=== PATIENT | male | born 1955 | race African-American/Black ===

== ENCOUNTER 2017-03-13 17:07 | Inpatient (IN) ==
[2017-03-13 18:43] LABS: MANUAL DIFF NEEDED? NO
[2017-03-13 18:49] LABS: BASO% 0.4 % (0.0-0.8); EOS# 0.22 X1000 (0.0-0.7); HEMATOCRIT 39.7 % (42.0-52.0); HEMOGLOBIN 12.9 g/dL (14.0-18.0); LYMPH# 1.94 X1000 (1.2-3.4); MCH 31.1 PG (27-31); MCHC 32.5 g/dL (33-37); MCV 95.7 FL (81-99); MONO# 0.53 X1000 (0.11-0.59); MONO% 9.6 % (1.7-9.3); MPV 12.8 FL (7.4-10.4); PLT 135 X1000 (130-400); RBC 4.15 XMIL (4.7-6.1)
[2017-03-13] MEDS ORDERED: VANCOMYCIN 1 GM/NS 1 GM/250 ML IVPB IV ONE ×2 (19:02→22:00)
[2017-03-13 19:09] LABS: ALBUMIN 3.5 g/dL (3.5-5.0); CALCIUM 8.5 mg/dL (8.8-10.2); POTASSIUM 3.6 mmol/L (3.5-5.1); TOTAL BILIRUBIN 0.4 mg/dL (0.20-1.00); TOTAL PROTEIN 6.7 g/dL (6.3-8.3)
--- NOTE | 2017-03-13 20:05 | PROVIDER DOCUMENTATION ---
This chart was entered by Tashi Hawkins Scribe, acting as scribe for Sarwat Nuñez PA. HPI-General Adult - General Chief Complaint: Sores/Lesions Stated Complaint: DIABETIC SORES/LESIONS Time Seen by Provider: 03/13/17 17:26 Source: patient Allergies/Adverse Reactions: Patient Allergies Allergy/AdvReac Type Severity Reaction Status Date / Time No Known Allergies Allergy Verified 02/03/17 20:38 Home Medications: Home Medication List Medication Instructions Recorded Confirmed Last Taken Type Insulin Glargine [Lantus] 24 unit SUBQ QHS #0 insuln.pen 08/04/14 02/03/1708/29 Rx Alprazolam [Xanax] 1 mg PO QHS 12/06/16 02/03/17 Unknown History Atorvastatin Calcium [Lipitor] 20 mg PO QHS 12/06/16 02/03/17 Unknown History Cyclobenzaprine [Flexeril] 10 mg PO BID 12/06/16 02/03/17 Unknown History Oxycodone HCl [Oxycontin] 40 mg PO DAILY 12/06/16 02/03/17 Unknown History Oxycodone HCl [Oxycontin] 60 mg PO BID 12/06/16 02/03/17 Unknown History Naloxegol Oxalate [Movantik] 25 mg PO DAILY #30 tablet 12/07/16 02/03/17 Unknown Rx LISINOpril [Prinivil] 10 mg PO DAILY #30 tablet 12/08/16 02/03/17 Unknown Rx Acyclovir 800 mg PO 5XDAY #50 tablet 12/10/16 02/03/17 Unknown Rx Amlodipine [Norvasc] 2.5 mg PO DAILY #30 tablet 02/06/17 Unknown Rx Carvedilol [Coreg] 6.25 mg PO Q12HR #60 tablet 02/06/17 Unknown Rx - History of Present Illness -Gen Adult Nature of Presenting Problems: patient is a 61 y/o M that presents to the ER with sores/lesion to left great toe. Patient has been followed by , who sent patient here. Denies fever /chills, swelling to feet, or chest pain. Location of Pain/Injury: reports: lower extremity (left great toe) Pain Radiation: reports: no radiation Quality of Pain: reports: dull Severity: reports: mild, moderate Onset/Duration: reports: unsure Timing: reports: still present, constant Context/Activities at Onset: reports: none Modifying Factors: improves with: nothing Associated Symptoms: denies: chest pain, fever/chills, shortness of breath Similar Symptoms Previously?: Yes Recently seen or treated by another doctor?: Yes Review of Systems - Adult - REVIEW OF SYSTEMS - ADULT Constitutional: reports: no symptoms reported. denies: chills, fever Eyes: reports: no symptoms reported. denies: discharge, dry eyes Ears, Nose, Mouth & Throat: reports: no symptoms reported. denies: ear discharge, ear pain Cardiovascular: reports: no symptoms reported. denies: chest pain, edema Respiratory: reports: no symptoms reported. denies: chronic cough, cough Gastrointestinal: reports: no symptoms reported. denies: abdominal pain, hematemesis Genitourinary: reports: no symptoms reported. denies: dysuria, discharge Musculoskeletal: reports: see HPI. denies: joint pain, joint swelling Integumentary: reports: see HPI. denies: hives, hair loss Neurological: reports: no symptoms reported. denies: ataxia, dizziness/vertigo Psychiatric: reports: no symptoms reported. denies: anxiety, anti-depressant use Endocrine: reports: no symptoms reported Hematologic/Lymphatic: reports: no symptoms reported Allergic/Immunologic: reports: no symptoms reported All Other Systems: Reviewed and Negative Past History - Adult - PAST MEDICAL HISTORY-ADULT Review of Records: reports: Old Records Reviewed, Nursing Assessment Review, Medications Reviewed, Social history reviewed & non-contributory. Major Childhood Illnesses: reports: denies history Cardiovascular: reports: CHF, HTN Respiratory: reports: denies history Gastrointestinal: reports: denies history Obstetrical/Gynecological: reports: denies history Genitourinary: reports: denies history Musculoskeletal: reports: arthritis Neurological: reports: Seizures/Epilepsy, other (NEUROPATHY) Psychiatric: reports: depression Endocrine/Immune: reports: Diabetes, other (neuropathy) Other Conditions: reports: denies history - PRIOR SURGERIES/PROCEDURES Surgical/Procedure History: reports: orthopedic (extremity) - IMMUNIZATION STATUS Childhood Immunizations: See Nurse Assessment Flu Vaccine: See Nurse Assessment - FAMILY HISTORY Family History: reviewed, not pertinent Physical Exam-General - PHYSICAL EXAM-ADULT Initial Vital Signs Reviewed: Yes - CONSTITUTIONAL General Appearance: alert, no apparent distress - EYES Eyes: PERRL/EOMI, pink conjunctivae - HEAD, EARS, NOSE, MOUTH & THROAT HENMT: normocephalic/atraumatic, moist mucous membranes, normal ENT inspection - NECK Neck: full range of motion, normal inspection - RESPIRATORY Respiratory: lungs clear, normal breath sounds, no respiratory distress, no accessory muscle use - CARDIOVASCULAR Cardiovascular: regular rate, rhythm, no edema, no murmur - GASTROINTESTINAL (ABDOMEN) Abdominal Exam: normal bowel sounds, non tender, soft - MUSCULOSKELETAL Extremity: no pedal edema, pelvis stable - SKIN Integumentary: warm/dry, other (left great toe with discoloration( black almost , with diabetic ulcer to it) - NEUROLOGIC Neurologic: grossly normal, no motor/sensory deficits - PSYCHIATRIC Psych/Mental Status: normal mood/affect, normal thought content, normal thought process, oriented x 3 Progress - PLAN OF CARE/RESULTS Progress/Plan/Lab Results: Vital Signs - 8 hr 03/13/17 17:12 Temperature 97.2 F L Pulse Rate 101 H Respiratory Rate 18 Blood Pressure 137/88 O2 Sat by Pulse Oximetry 100 Laboratory Results - last 24 hr 03/13/17 17:20 POC Glucose 130 H Result Diagrams: 03/13/17 18:35 03/13/17 18:35 - CONSULTS/PCP/HOSPITALIST Notification #1 *Consult/PCP/Hospitalist*: Dr. Horowitz Time Discussed: 20:04 Consult Disposition: Admit Departure - Departure Time of Disposition Decision: 20:04 DIAGNOSIS: Diabetic foot ulcer Qualifiers: Diabetic foot ulcer location: toe Diabetes mellitus type: type 1 Laterality: left Non-pressure ulcer stage: with fat layer exposed Qualified Code(s): E10.621 - Type 1 diabetes mellitus with foot ulcer; L97.522 - Non-pressure chronic ulcer of other part of left foot with fat layer exposed Disposition: ADMITTED INPATIENT 09 Certified Medical Emergency: Emergent Condition: Stable Referrals and Follow-Ups: Ronald Posadas MD [Primary Care Provider] - - Critical Care Note This patient required my direct & personal management of CC.: No Attestation - Physician/ SYLVIA Attestation Patient care was provided by Advanced Practice Provider:: Yes Advanced Practice Provider:: Sarwat Nuñez Advanced Practice Provider documentation review:: The Mid-level provider documentation, treatment plan and medical decision making was reviewed by the physician who agrees with all treatment and medical decision making by the MLP. This chart was documented by the indicated scribe, (Tashi Hawkins, Harriet) and accurately reflects the services I performed and decisions made by Joaquin hercules Steven Wesley, PA, as attested by the provider's signature.
[2017-03-13] MEDS ORDERED: HUMULIN R IV PRN (20:07)
[2017-03-13] MEDS ORDERED: SODIUM CHLORIDE 0.9% INJ SCH (21:32)
[2017-03-13] MEDS ORDERED: ZOFRAN IV PRN (21:32)
[2017-03-13] MEDS ORDERED: VANCOMYCIN IV PER PHARMACY MISC SCH (21:32)
[2017-03-13] MEDS ORDERED: TYLENOL PO PRN (21:32)
[2017-03-13] MEDS: HUMALOG SUBQ SCH (22:18)
[2017-03-13] MEDS: ROCEPHIN 1 GM/NS 1 GM/50 ML IVPB IV SCH (22:27)
[2017-03-13] MEDS: PROTONIX IV SCH (22:27)
[2017-03-14] MEDS: NORCO-7.5 PO PRN ×2 (05:50→15:20)
[2017-03-14] MEDS: HUMALOG SUBQ SCH (06:24)
[2017-03-14 07:00] LABS: INR 1.11 (0.86-1.15); PROTIME 14.6 Seconds (12.1-15.5)
[2017-03-14 07:03] LABS: HEMATOCRIT 37.4 % (42.0-52.0); HEMOGLOBIN 12.2 g/dL (14.0-18.0); MCHC 32.6 g/dL (33-37); MCV 95.2 FL (81-99); RBC 3.93 XMIL (4.7-6.1)
[2017-03-14 07:16] LABS: ALBUMIN 3.4 g/dL (3.5-5.0); CALCIUM 8.6 mg/dL (8.8-10.2); MAGNESIUM 1.8 mg/dL (1.5-2.7); POTASSIUM 3.9 mmol/L (3.5-5.1); TOTAL BILIRUBIN 0.4 mg/dL (0.20-1.00); TOTAL PROTEIN 6.2 g/dL (6.3-8.3)
--- NOTE | 2017-03-14 08:26 | PROGRESS NOTE ---
DATE: 03/14/2017 SUBJECTIVE: Patient notes that he is feeling a little bit better. He is still having some pain in his toe but it has not really changed. Denies any chest pain, palpitations. Denies any fevers or chills. OBJECTIVE: Vital Signs: Reviewed. Temperature 98 degrees, pulse 102, respiratory 18, BP 157/90, saturation 98% on room air. General: Patient is awake and alert. He is currently in no real respiratory distress. He is pleasant to talk with. Lying in bed. HEENT: Normocephalic, atraumatic. MESFIN. Neck: Supple. CV: Regular rate. Chest: Relatively clear. Extremities: Moves all extremities. Neurologic: No focal changes. Skin: He is noted to have a dry eschar on his distal left great toe. He also has an abraded area on his lateral right ankle that he notes has been there for several months off and on. ASSESSMENT: 1. Dry gangrene of his left great toe. We will continue him on antibiotics. Hopefully he will have enough blood flow to actually heal this. We will check blood flow studies today. 2. Diabetes. Continue sliding scale insulin. Restart his home medications when list is available. 3. Hypertension. We will start him on lisinopril and restart the rest of his home medications when list is available. cc: Mitch Horowitz MD
[2017-03-14] MEDS ORDERED: PRINIVIL PO SCH (09:00)
--- NOTE | 2017-03-14 10:39 | Diag Imaging Result Document ---
PROCEDURE NAME: FOOT COMPLETE LEFT - 03/13/2017 LEFT FOOT THREE VIEWS: INDICATION: Possible osteomyelitis left great toe. FINDINGS: There is a soft tissue defect involving the plantar aspect of the great toe. There is no bony destruction to suggest acute osteomyelitis. No periosteal new bone formation. There are vascular calcifications. There are calcaneal spurs. IMPRESSION: Soft tissue ulcer. No evidence for osteomyelitis.
--- NOTE | 2017-03-14 10:52 | HISTORY AND PHYSICAL ---
CHIEF COMPLAINT: Sore to left great toe. HISTORY OF PRESENT ILLNESS: This is a 61-year-old male with a history of diabetes mellitus, who presented to the emergency room on the recommendation of his county agent, Dr. Purcell, after failed outpatient treatment. He is complaining of increasing pain and nonhealing sore to this area. He denies any fevers, chills, or any drainage. He is noted to have dry eschar to his distal left great toe. He is being admitted for further evaluation and treatment. Patient describes the pain as a dull, achy type pain that is constant with no alleviating or exacerbating factors. It is at the area of his great toe. He denies any radiation of the pain. PAST MEDICAL HISTORY: Insulin-dependent diabetes, hypertension, depression, CHF with echocardiogram in November 2016 with EF of 30% with pulmonary artery hypertension, diastolic dysfunction, peripheral neuropathy, seizures as a child. PAST SURGICAL HISTORY: Right arm, right leg, and right hip toe amputation and penile implant. SOCIAL HISTORY: Denies alcohol, tobacco, or illicit drug use. ALLERGIES: No known drug allergies. HOME MEDICATIONS: A list will be obtained. REVIEW OF SYSTEMS: A 14 point review of systems is discussed with patient with pertinent positives being left great toe pain and nonhealing lesion. He denies chest pain, palpitations, syncope, dizziness, shortness of breath, fever, chills, nausea, vomiting, diarrhea, constipation, black or bloody vomitus, black or bloody stools, hematuria, dysuria, frequency, urgency, any drainage from his wound to the left toe. PHYSICAL EXAMINATION: GENERAL: This is a 61-year-old male who is sitting up in the bed with no distress. VITAL SIGNS: Blood pressure is 146/80, with a heart rate of 91, respirations are 18, temperature is 98.4 degrees, with room air saturations of 98%. CARDIOVASCULAR: Regular rate and rhythm. S1 and S2 appreciated. PULMONARY: Breath sounds are clear. No increased work of breathing noted. GASTROINTESTINAL: Abdomen is soft, nontender, nondistended with bowel sounds in all 4 quadrants. BACK: No CVAT. No spine tenderness. MUSCULOSKELETAL: Good range of motion to joints. NEUROLOGIC: He is alert and oriented x3. SKIN: Warm and dry with eschar noted to his left great toe. EXTREMITIES: No clubbing, cyanosis, or edema. Pulses are palpable x4. Calves are nontender. DIAGNOSTICS: WBC is 5.5, with hemoglobin 12.9, hematocrit 39.7, and platelets of 135,000. Sodium is 137, potassium 3.6, BUN 20, creatinine 1.7, with a glucose of 148. X-ray left foot, radiology read is pending. ASSESSMENT AND PLAN: 1. Dry gangrene to left great toe. We will continue vancomycin and Rocephin. Consult wound care. 2. Diabetes mellitus. We will continue with pattern blood glucose with sliding scale insulin. We will identify his home medications and restart as appropriate. 3. Hypertension. Will identify his home medications and restart as appropriate. 4. In review of his previous records, the patient did have an arterial study performed in September of 2016 which revealed normal resting lower extremity arterial study bilateral. Further treatments pending hospital course. Dictated by JEANNETTE Browning for Mitch Horowitz MD cc: JEANNETTE Browning MD
[2017-03-14] MEDS: HUMALOG DOSE (PARKWAY) SUBQ SCH ×3 (11:45→21:18)
[2017-03-14] MEDS: VANCOMYCIN 1,800 MG in NS 500 ML IV SCH (17:04)
[2017-03-14] MEDS ORDERED: ENTRESTO 24 MG-26 MG TABLET PO SCH (21:00)
[2017-03-14] MEDS: XANAX PO SCH (21:14)
[2017-03-14] MEDS: ROCEPHIN 1 GM/NS 1 GM/50 ML IVPB IV SCH (21:14)
[2017-03-14] MEDS: PROTONIX IV SCH (21:14)
[2017-03-14] MEDS: LYRICA PO SCH (21:14)
[2017-03-14] MEDS: OXYCONTIN PO SCH (21:14)
[2017-03-14] MEDS: LANTUS INSULIN (PARKWAY) SUBQ SCH (21:20)
[2017-03-15] MEDS: HUMALOG DOSE (PARKWAY) SUBQ SCH ×4 (06:36→20:36)
--- NOTE | 2017-03-15 08:12 | PROGRESS NOTE ---
DATE: 03/15/2017 SUBJECTIVE: The patient notes that his toe was starting to feel a little bit better. It is less painful. Denies any chest pain, palpitations. Denies any fevers or chills. OBJECTIVE: Vital Signs: Temperature 98, pulse 101, respiratory 18, blood pressure 161/93 to 154/102, sat 98% on room air. General: Patient is awake, alert, oriented. He is currently in no respiratory distress. He is pleasant to talk with. Lying in bed. Speech is regular. Memory is intact. Neck: Supple. Cardiovascular: Regular rate. Chest: Relatively clear, nonlabored. No wheezing. Abdomen: Soft. Extremities: Moves all extremities. Neurologic: No focal changes. Skin: Warm and dry. No rashes. Extremities: Moves all extremities. Neurological: No focal changes. Skin: He is noted to have an improving wound on the left distal great toe. Surrounding erythema has improved. Eschar is improving. No drainage. ASSESSMENT: 1. Dry gangrene to left great toe, improving. Continue vancomycin and Rocephin. We will continue wound care plan. 2. Diabetes. Continue sliding scale insulin. 3. Hypertension. He is on Entresto, but it appears that he is on once daily dosing. We will increase this to twice a day and continue to follow. We will stop his FERNANDO inhibitor. Uncertain if he should be on Entresto and an FERNANDO inhibitor at the same time. Certainly feel as though he should increase his Entresto dose and stop the FERNANDO inhibitor. cc: Mitch Horowitz MD
[2017-03-15] MEDS: OXYCONTIN PO SCH ×2 (08:55→20:36)
[2017-03-15] MEDS: ENTRESTO 24 MG-26 MG TABLET PO SCH ×2 (08:55→20:35)
[2017-03-15] MEDS: LYRICA PO SCH ×2 (08:56→20:36)
--- NOTE | 2017-03-15 13:03 | PROGRESS NOTE ---
DATE: 03/15/2017 The patient was examined by the wound care nurses and in discussing the patient's history as well as prior care to this left foot, the patient admitted that he had, in fact, not seen Dr. Purcell and was not sent to the emergency room per Dr. Purcell. He was sent per Dr. Molina, who is his pain physician that he sees in [place]. The patient has had no prior care for this foot, although he stated he had on admission and in the emergency room. The patient has used Dr. Purcell in the past and evidently he was not happy with his care. Therefore, he did not follow up. He does not want Dr. Purcell consulted in the hospital. Therefore, we will continue with care per the Wound Center, check with Dr. Freeman regarding antibiotics, and on discharge the patient will be followed in the wound Center with Dr. King from Orthopedics. Monika, the wound care nurse, as well as myself have discussed with the patient the importance of seeking medical care and assuring the appropriate followup as well as medications and care prescribed. He does state understanding. Dictated by JEANNETTE Browning for Mitch Horowitz MD cc: JEANNETTE Browning MD
[2017-03-15] MEDS: SANTYL OINT TOP SCH (15:29)
[2017-03-15] MEDS: VANCOMYCIN 1,800 MG in NS 500 ML IV SCH (19:28)
[2017-03-15] MEDS: ROCEPHIN 2 GM/NS 2 GM/50 ML IVPB IV SCH (19:45)
[2017-03-15] MEDS: XANAX PO SCH (20:35)
[2017-03-15] MEDS: CUBICIN (FOR INPATIENT USE) 500 MG in NS 100 ML IV SCH (20:35)
[2017-03-15] MEDS: PROTONIX IV SCH (20:36)
[2017-03-15] MEDS: LANTUS INSULIN (PARKWAY) SUBQ SCH (20:39)
[2017-03-16] MEDS: HUMALOG DOSE (PARKWAY) SUBQ SCH ×4 (06:38→21:03)
--- NOTE | 2017-03-16 08:51 | PROGRESS NOTE ---
DATE: 03/16/2017 SUBJECTIVE: Patient notes he is feeling better. He is still having some pain in his foot, but denies any pain elsewhere. Denies any swelling or redness anywhere else. Denies any fever or chills. OBJECTIVE: Vital Signs: On physical, temp 99, pulse 93, respiratory rate 18, BP 129/86, satting 98% on room air. General: Patient is awake, alert, oriented. Currently in no respiratory distress. He is pleasant. Speech is regular. Memory is intact. HEENT: Normocephalic, atraumatic. Neck: Supple. CV: Regular rate. Chest: Relatively clear. Extremities: Moves all extremities. Neurologic: No changes. Skin: He is noted to have much less swelling and erythema of the surrounding area on his toe. He is having no streaking. The black eschar has been removed and is healing well. ASSESSMENT: 1. Diabetic foot ulceration, improving. 2. Diabetes. 3. Hypertension. 4. Chronic renal failure. Serum creatinine is at its baseline at 1.8. PLAN: The patient is having a bone scan this afternoon. If the bone scan is good, he can be discharged home on oral antibiotics. Otherwise, we will likely need IV daptomycin. We will continue to follow. Further orders at that time. cc: Mitch Horowitz MD
[2017-03-16] MEDS: OXYCONTIN PO SCH ×2 (09:26→20:58)
[2017-03-16] MEDS: ENTRESTO 24 MG-26 MG TABLET PO SCH ×2 (09:26→20:57)
[2017-03-16] MEDS: LYRICA PO SCH ×2 (09:26→20:58)
[2017-03-16] MEDS: SANTYL OINT TOP SCH (09:28)
--- NOTE | 2017-03-16 14:19 | Diag Imaging Result Document ---
PROCEDURE NAME: 3 PHASE BONE SCAN - 03/16/2017 3-PHASE BONE SCAN: Exam performed using 29.6 mCi of technetium-99m MDP administered intravenously. Three phase exam is performed over the feet and ankles. There is early increased flow to the left foot and ankle, most prominent at the great toe. There is increased activity at the left great toe on the blood pool images. There is increased activity of the left great toe on the delayed static images. These findings are suspicious for osteomyelitis at the left great toe. There is mild increased flow to the lateral right ankle with mild increased activity at this location on the delayed static images. This is of uncertain significance. IMPRESSION: 1. Evidence of osteomyelitis at left great toe. 2. Mild increased activity at the lateral right ankle of uncertain significance.
[2017-03-16] MEDS: ROCEPHIN 2 GM/NS 2 GM/50 ML IVPB IV SCH (20:57)
[2017-03-16] MEDS: CUBICIN (FOR INPATIENT USE) 500 MG in NS 100 ML IV SCH (20:57)
[2017-03-16] MEDS: XANAX PO SCH (20:57)
[2017-03-16] MEDS: PROTONIX IV SCH (20:59)
[2017-03-16] MEDS: LANTUS INSULIN (PARKWAY) SUBQ SCH (21:04)
[2017-03-17] MEDS: HUMALOG DOSE (PARKWAY) SUBQ SCH ×4 (06:29→21:49)
[2017-03-17] MEDS: OXYCONTIN PO SCH ×2 (10:00→21:01)
[2017-03-17] MEDS: LYRICA PO SCH ×2 (10:01→21:01)
[2017-03-17] MEDS: SANTYL OINT TOP SCH (10:01)
[2017-03-17] MEDS: ENTRESTO 24 MG-26 MG TABLET PO SCH ×2 (10:01→21:01)
--- NOTE | 2017-03-17 11:31 | PROGRESS NOTE ---
DATE: 03/17/2017 SUBJECTIVE: Patient notes he is feeling fine. He denies any pain in his foot. Denies any fevers, chills. Denies any GI or issues. PHYSICAL: Temp 98 degrees, pulse 95, respiratory 16, BP 148/97 to 148/106, sat 100% on room air.General: Patient is awake, alert, oriented. He is very pleasant to talk with. Neck: Supple. CV: Regular rate. Chest: Completely clear. Abdomen: Soft. Extremities: Moves all extremities. Neurologic: No focal changes. Skin: Warm and dry. No rashes. He is noted to have the same abrasion on his right lateral malleolus that has continued to heal. He also has a wound on his left distal great toe that is currently bandaged, clean, dry, and intact. There is no pus. No drainage. ASSESSMENT: 1. Congestive heart failure. 2. Hypertension. 3. Osteomyelitis left great toe. 4. Dry gangrene left great toe. 5. Diabetes. Patient unfortunately has osteomyelitis on his left great toe. Therefore he will require IV daptomycin for 6 weeks. He does not have a PICC line therefore he will be in the hospital over the weekend. His blood pressure continues to be elevated. We will increase his Entresto to 49/51. Continue to follow. cc: Mitch Horowitz MD
[2017-03-17] MEDS: ROCEPHIN 2 GM/NS 2 GM/50 ML IVPB IV SCH (19:55)
[2017-03-17] MEDS: XANAX PO SCH (21:01)
[2017-03-17] MEDS: PROTONIX PO SCH (21:01)
[2017-03-17] MEDS: CUBICIN (FOR INPATIENT USE) 500 MG in NS 100 ML IV SCH (21:02)
[2017-03-17] MEDS: LANTUS INSULIN (PARKWAY) SUBQ SCH (21:06)
[2017-03-18] MEDS: HUMALOG DOSE (PARKWAY) SUBQ SCH ×4 (06:20→22:06)
[2017-03-18] MEDS: ENTRESTO 24 MG-26 MG TABLET PO SCH ×2 (09:07→22:12)
[2017-03-18] MEDS: OXYCONTIN PO SCH ×2 (09:07→22:13)
[2017-03-18] MEDS: SANTYL OINT TOP SCH (09:08)
[2017-03-18] MEDS: LYRICA PO SCH ×2 (09:08→22:13)
[2017-03-18] MEDS: TOPROL XL PO SCH (09:08)
--- NOTE | 2017-03-18 11:32 | PROGRESS NOTE ---
DATE: 03/18/2017 SUBJECTIVE: Patient without any complaints. Notes that the pain on his foot and pain on his right ankle were improved. Denies any fevers or chills. PHYSICAL EXAMINATION: Vital Signs: Temperature 98, pulse 92, respiratory rate 18, BP 140/100, saturation of 97% on room air. General: Patient is awake, alert, oriented. He is currently in no distress. He is pleasant to talk with. Neck: Supple. CV: Regular rate. Chest: Clear. Abdomen: Soft. Extremities: Moves all extremities. Neurologic: No focal changes from previous exams. Skin: The ulcerated lesion on his right lateral malleolus is improving. The ulcerative lesion on his left great toe is beginning to dry up some. It is much improved. No surrounding erythema. ASSESSMENT: 1. Osteomyelitis, left great toe. 2. Diabetes. 3. Cellulitis. 4. Diabetic ulcer. 5. Hypertension. Patient's blood pressure remains elevated. We did increase his Entresto yesterday. We will add metoprolol today to assist his blood pressure control. Continue to follow. Hopefully home in the morning on daptomycin after a peripherally inserted central catheter line is placed. cc: Mitch Horowitz MD
[2017-03-18 15:11] LABS: HEMATOCRIT 38.5 % (42.0-52.0); HEMOGLOBIN 12.5 g/dL (14.0-18.0); MCH 31.4 PG (27-31); MCHC 32.5 g/dL (33-37); MCV 96.7 FL (81-99); MPV 12.1 FL (7.4-10.4); RBC 3.98 XMIL (4.7-6.1)
[2017-03-18 15:42] LABS: ALBUMIN 3.7 g/dL (3.5-5.0); CALCIUM 8.8 mg/dL (8.8-10.2); POTASSIUM 4.4 mmol/L (3.5-5.1); TOTAL BILIRUBIN 0.4 mg/dL (0.20-1.00); TOTAL PROTEIN 6.8 g/dL (6.3-8.3)
--- NOTE | 2017-03-18 22:06 | Diag Imaging Result Document ---
PROCEDURE NAME: LUMBAR SPINE W/O CONTRAST - 03/18/2017 CT LUMBAR SPINE WITHOUT CONTRAST: FINDINGS: There is good alignment to the lumbar spine. No compressed vertebra. No other fracture. There are bulging disks with facet hypertrophy at L3-4 and L4-5 resulting in severe spinal stenosis. IMPRESSION: 1. No acute bony injury. 2. Severe spinal stenosis at L3-4 and L4-5 secondary to bulging disks and facet hypertrophy. A preliminary report was given at 9:39 p.m.
[2017-03-18] MEDS: ROCEPHIN 2 GM/NS 2 GM/50 ML IVPB IV SCH (22:11)
[2017-03-18] MEDS: LANTUS INSULIN (PARKWAY) SUBQ SCH (22:12)
[2017-03-18] MEDS: CUBICIN (FOR INPATIENT USE) 500 MG in NS 100 ML IV SCH (22:12)
[2017-03-18] MEDS: PROTONIX PO SCH (22:13)
--- NOTE | 2017-03-18 22:35 | Diag Imaging Result Document ---
PROCEDURE NAME: HEAD W/O CONTRAST - 03/18/2017 CT BRAIN WITHOUT CONTRAST: TECHNIQUE: Dose reduction protocol. FINDINGS: No parenchymal hemorrhage. No epidural or subdural hematoma. No subarachnoid hemorrhage. No skull fracture. There are chronic microvascular ischemic changes. No hydrocephalus. No sinus opacification. IMPRESSION: No hemorrhage. No injury. A preliminary report was given at 9:33 p.m.
--- NOTE | 2017-03-18 22:43 | Diag Imaging Result Document ---
PROCEDURE NAME: ABDOMEN/PELVIS W/O CONTRAST - 03/18/2017 CT ABDOMEN AND PELVIS WITHOUT ORAL OR INTRAVENOUS CONTRAST: FINDINGS: The upper abdomen is not included on this exam. No fluid about the liver or spleen. The gallbladder is distended. No retroperitoneal hematoma. There are hypodense renal lesions believed to be cysts. No hydronephrosis. No aortic aneurysm. Normal noncontrasted pancreas. The spleen is not enlarged. Prominent stool is found throughout the colon. Normal appendix. No abscess. No free air. There is a penile prosthesis. The urinary bladder is distended. The prostate is not enlarged. IMPRESSION: 1. Unable to exclude organ injury without intravenous contrast. 2. Constipation. 3. Renal cysts. 4. Distended gallbladder. A preliminary report was given at 9:46 p.m. MTDD
[2017-03-18] MEDS: XANAX PO SCH (23:05)
[2017-03-19] MEDS: HUMALOG DOSE (PARKWAY) SUBQ SCH ×4 (06:05→20:44)
[2017-03-19 06:08] LABS: HEMOGLOBIN 12.2 g/dL (14.0-18.0); MCH 30.9 PG (27-31); MCHC 32.1 g/dL (33-37); MCV 96.2 FL (81-99); MPV 13.4 FL (7.4-10.4); RBC 3.95 XMIL (4.7-6.1)
--- NOTE | 2017-03-19 06:26 | Diag Imaging Result Document ---
PROCEDURE NAME: FOREARM-RIGHT - 03/18/2017 RIGHT FOREARM, TWO VIEWS: FINDINGS: No fracture. No dislocation. IMPRESSION: No acute bony injury.
--- NOTE | 2017-03-19 06:28 | Diag Imaging Result Document ---
PROCEDURE NAME: FOREARM-LEFT - 03/18/2017 LEFT FOREARM, TWO VIEW: FINDINGS: No fracture. No dislocation. IMPRESSION: No acute bony injury.
[2017-03-19 06:29] LABS: ALBUMIN 3.3 g/dL (3.5-5.0); CALCIUM 8.8 mg/dL (8.8-10.2); MAGNESIUM 1.9 mg/dL (1.5-2.7); POTASSIUM 3.8 mmol/L (3.5-5.1); TOTAL BILIRUBIN 0.4 mg/dL (0.20-1.00); TOTAL PROTEIN 6.4 g/dL (6.3-8.3)
--- NOTE | 2017-03-19 06:30 | Diag Imaging Result Document ---
PROCEDURE NAME: HAND COMPLETE RIGHT - 03/18/2017 RIGHT HAND, THREE VIEWS: FINDINGS: No fracture. No dislocation. IMPRESSION: No acute bony injury.
--- NOTE | 2017-03-19 06:32 | Diag Imaging Result Document ---
PROCEDURE NAME: HAND COMPLETE LEFT - 03/18/2017 LEFT HAND, THREE VIEWS: FINDINGS: No fracture. No dislocation. IMPRESSION: No acute bony injury.
[2017-03-19 07:39] LABS: INR 1.21 (0.86-1.15); PROTIME 15.6 Seconds (12.1-15.5)
[2017-03-19] MEDS ORDERED: SODIUM CHLORIDE 0.9% IV PRN (08:08)
[2017-03-19] MEDS ORDERED: NS 250 ML ONE (08:13)
[2017-03-19] MEDS ORDERED: NS 250 ML IV SCH (09:00)
[2017-03-19] MEDS: ENTRESTO 24 MG-26 MG TABLET PO SCH (09:34)
[2017-03-19] MEDS: TOPROL XL PO SCH (09:35)
[2017-03-19] MEDS: OXYCONTIN PO SCH ×2 (09:35→20:35)
[2017-03-19] MEDS: LYRICA PO SCH ×2 (09:36→20:35)
[2017-03-19] MEDS: SANTYL OINT TOP SCH (09:36)
--- NOTE | 2017-03-19 12:52 | Diag Imaging Result Document ---
PROCEDURE NAME: CHEST-PORTABLE - 03/19/2017 PORTABLE CHEST X-RAY, 03/19/2017: COMPARISON: 02/03/2017. FINDINGS: There is a new right PICC line in good position with the tip in the mid SVC. Lung volumes are severely low with bibasilar crowding. No obvious infiltrates. There is mild cardiomegaly. IMPRESSION: Good PICC line placement. Cardiomegaly. No acute disease.
[2017-03-19] MEDS: NORCO-7.5 PO PRN (14:20)
[2017-03-19] MEDS: PROTONIX PO SCH (20:35)
[2017-03-19] MEDS: ROCEPHIN 2 GM/NS 2 GM/50 ML IVPB IV SCH (20:35)
[2017-03-19] MEDS: XANAX PO SCH (20:35)
[2017-03-19] MEDS: LANTUS INSULIN (PARKWAY) SUBQ SCH (20:36)
[2017-03-19] MEDS: CUBICIN (FOR INPATIENT USE) 500 MG in NS 100 ML IV SCH (21:27)
[2017-03-20] MEDS: ENTRESTO 24 MG-26 MG TABLET PO SCH ×2 (00:02→09:56)
[2017-03-20] MEDS: HUMALOG DOSE (PARKWAY) SUBQ SCH ×2 (06:39→11:38)
[2017-03-20 07:27] VITALS: BP 156/108
--- NOTE | 2017-03-20 08:18 | PROGRESS NOTE ---
DATE: 03/20/2017 SUBJECTIVE: The patient notes that he is feeling a little bit better. He did have a sleepless night last night with abdominal pain but notes the pain is better this morning. He has not eaten yet however. PHYSICAL EXAMINATION: Vital signs stable and reviewed. Patient is awake, alert, oriented. He is in no distress. He is pleasant to talk with. Speech is regular. Memory is intact. Neck supple. CV: Regular rate. Chest clear and unlabored. Abdomen is soft. No masses. No hepatosplenomegaly. Extremities: He moves all extremities. Left great toe was bandaged, clean, dry, and intact. ASSESSMENT: 1. Diabetic foot ulcer. 2. Diabetic peripheral neuropathy. 3. Osteomyelitis, left great toe. PLAN: Hopefully, the patient can be discharged home later this afternoon after he has a PICC line if his insurance availability for home IV infusions. We will continue to follow. Continue daptomycin for another 5 weeks. cc: Mitch Horowitz MD
[2017-03-20] MEDS: TOPROL XL PO SCH (09:57)
[2017-03-20] MEDS: LYRICA PO SCH (09:57)
[2017-03-20] MEDS: OXYCONTIN PO SCH (09:57)
[2017-03-20] MEDS: SANTYL OINT TOP SCH (09:57)
--- NOTE | 2017-03-20 19:31 | DISCHARGE SUMMARY ---
ADMISSION DATE: 03/13/2017 DISCHARGE DATE: 03/20/2017 DATE OF : 1955. DATE OF ADMISSION: 03/13/2017. DATE OF DISCHARGE: 03/20/2017. ADMISSION DIAGNOSES: 1. Dry gangrene to left great toe. 2. Diabetes type 2. 3. Hypertension. DISCHARGE DIAGNOSES: 1. Dry gangrene to the left great toe. 2. Osteomyelitis of left great toe. 3. Diabetes type 2. 4. Hypertension. SUMMARY OF FINDINGS: This is a 61-year-old, male, who presented to the emergency room on the recommendation of his mixologist, Dr. Purcell, after failed outpatient treatment complaining of increased pain and a non-healing sore to the distal left great toe where he was noted to have dry eschar. He was admitted. Bone scan 03/16/2017: Showed evidence of osteomyelitis at the left great toe and some mild increased activity at the lateral right ankle of uncertain significance. Lumbar spine CT 03/18/2017: Showed no acute bony injury, but some severe spinal stenosis at L3-4 and L4-5 secondary to bulging disk and facet hypertrophy. Abdomen and pelvic CT 03/18/2017: Showed: 1. Constipation. 2. Distended gallbladder. 3. Prominent stool found throughout the colon. Head CT 03/18/2017: Showed no hemorrhage and no injury. Right forearm x-ray 03/18/2017: Showed no acute bony injury. Left forearm x-ray: Showed no acute bony injury. Left hand x-ray 03/18/2017: Showed no acute bony injury. Right hand x-ray 03/18/2017: Showed no acute bony injury. We spoke with Dr. Freeman from Infectious Disease about the findings of his osteomyelitis and it is felt that he will need, since we were unable to obtain a culture since it was dry gangrene, that he would need 6 weeks of daptomycin 500 mg every 24 hours and Rocephin 2 g IV every 24 hours. We placed a PICC line and verified placement. We attempted to set the patient up with home infusion but due to insurance constraints, he will come on a daily basis for outpatient infusion here at [facility] for the next 6 weeks. He will have a CBC drawn every Sunday. He will follow up with Dr. Freeman in 3 weeks. DISCHARGE MEDICATIONS: For home will include his: 1. Xanax 1 mg p.o. at bedtime. 2. Lantus 24 units subcutaneous every 24 hours. 3. Oxycodone 60 mg p.o. b.i.d. 4. Lyrica 50 mg p.o. b.i.d. 5. Entresto 24 mg/26 mg 1 p.o. daily. 6. Lipitor 20 mg p.o. at bedtime. 7. ProAir inhalation every 6 hours p.r.n. FOLLOWUP CARE: He will need to follow up with his primary care physician in the next 1-2 weeks and he will call his office for an appointment. TIME SPENT ON DISCHARGE: 35 minutes. This is JEANNETTE Perez, dictating for Dr. Betancourt. Dictated by JEANNETTE Perez for Roderick Robbins MD cc: JEANNETTE Perez MD Leroy F. Harris, MD Moses Awoniyi, MD
== END 2017-03-20 15:05 | disposition home or self-care (01) ==
LOC: P.ED 17:07 → P.MEDSURG 21:03 → SUATTDRO 21:03 → P.MEDSURG 21:24
PROVIDERS: ATTEND Internal Medicine

== ENCOUNTER 2017-04-03 09:26 | Inpatient (IN) ==
[2017-04-03 10:25] LABS: MANUAL DIFF NEEDED? NO
[2017-04-03 10:32] LABS: BASO% 0.2 % (0.0-0.8); EOS# 0.01 X1000 (0.0-0.7); EOS% 0.2 % (0.0-10.0); HEMATOCRIT 37.4 % (42.0-52.0); HEMOGLOBIN 12.3 g/dL (14.0-18.0); IMM GRAN# 0.02 X1000 (0.0-0.04); IMM GRAN% 0.3 % (0.0-0.5); LYMPH# 0.79 X1000 (1.2-3.4); LYMPH% 13.2 % (20.5-51.1); MCH 31.4 PG (27-31); MCHC 32.9 g/dL (33-37); MCV 95.4 FL (81-99); MONO# 0.52 X1000 (0.11-0.59); MONO% 8.7 % (1.7-9.3); NEUT% 77.4 % (42.2-75.2); RBC 3.92 XMIL (4.7-6.1)
[2017-04-03 10:33] LABS: PLT 74 X1000 (130-400)
[2017-04-03 10:51] LABS: ALBUMIN 3.2 g/dL (3.5-5.0); CALCIUM 7.9 mg/dL (8.8-10.2); POTASSIUM 3.5 mmol/L (3.5-5.1); TOTAL PROTEIN 5.9 g/dL (6.3-8.3)
--- NOTE | 2017-04-03 10:58 | Diag Imaging Result Doc PS360 ---
EXAM: HEAD W/O CONTRAST - 04/03/2017 HISTORY: syncope TECHNIQUE: Dose reduction protocol COMPARISON: 03/18/2017 FINDINGS: There are mild atrophic changes and mild chronic microvascular ischemic changes. There are chronic lacunar infarcts in the marybeth. There is no indication of recent infarct, although acute infarcts may not be immediately visible. There is no evidence of intracranial hemorrhage, mass effect, midline shift, or hydrocephalus. There is no skull fracture. IMPRESSION: Chronic lacunar infarcts at the marybeth. No visible acute process. No hemorrhage or mass effect. Electronically signed by Mata Murillo 04/03/2017 10:55 AM
--- NOTE | 2017-04-03 12:57 | Diag Imaging Result Doc PS360 ---
EXAM: US GB < RUQ (LIMITED) HISTORY: abnormal lfts TECHNIQUE: COMPARISON: None. FINDINGS: No abdominal aortic aneurysm. The pancreas is predominantly obscured. There is at least a small right-sided pleural effusion. The inferior vena cava is poorly seen. Common bile duct measures 3 mm. There is sludge within the gallbladder. There may be several tiny stones as well. The wall is not thickened. Normal right kidney although there is a 2.1 cm cyst inferiorly. No hydronephrosis. I believe there is mild fatty infiltration of the liver. IMPRESSION: 1.Sludge and possible tiny stones in the gallbladder 2.Right renal cyst 3.Right-sided pleural effusion 4.Mild fatty infiltration of the liver Electronically signed by Severo Cherry 04/03/2017 12:54 PM
[2017-04-03 13:13] LABS: BILIRUBIN URINE NEGATIVE (NEGATIVE); BLOOD URINE 4+ (NEGATIVE); CLARITY CLEAR (CLEAR); COLOR YELLOW; GLUCOSE URINE NEGATIVE (NEGATIVE); LEUKOCYTES URINE TRACE (NEGATIVE); NITRITE URINE NEGATIVE (NEGATIVE); UROBILINOGEN URINE 1+(1 mg/dL)
[2017-04-03 13:17] LABS: URINE CULTURE PL NEEDED? YES; URINE EPITHELIAL CELLS <10 /HPF (<10); URINE RBC 20-40 /HPF (<10); URINE SOURCE CLEAN CATCH
--- NOTE | 2017-04-03 14:30 | PROVIDER DOCUMENTATION ---
This chart was entered by Tashi Hawkins Scribe, acting as scribe for Mat Lee MD. HPI-Syncope/Dizziness - General Chief Complaint: Syncope Stated Complaint: B/P PROBLEMS/SYNCOPE LAST NIGHT Time Seen by Provider: 04/03/17 09:57 Source: patient Allergies/Adverse Reactions: Patient Allergies Allergy/AdvReac Type Severity Reaction Status Date / Time No Known Allergies Allergy Verified 02/03/17 20:38 Home Medications: Home Medication List Medication Instructions Recorded Confirmed Last Taken Type Alprazolam [Xanax] 1 mg PO QHS 12/06/16 04/01/17 Unknown History Albuterol Sulfate [Proair Hfa] 8.5 gm IH Q6H PRN PRN 03/14/17 04/01/17 Unknown History Oxycodone HCl [Oxycodone HCl ER] 60 mg PO DAILY #20 tab.er.12h 03/20/17 Unknown Rx Cyclobenzaprine HCl 10 mg PO BID 04/01/17 04/01/17 Unknown History Lisinopril 04/01/17 Unknown History - History of Present Illness-Syncope/Dizzy Nature of Presenting Problem: Patient is a 61 y/o M that presents after having a syncopal episode when he got up in the middle of night to use bathroom. He comes in with lip laceration. He also complains of abdominal pain in which he was seen 2 days ago in the ER for similar symptoms. Patient had work up with labs and xray and d/c home. He has no n/v/d, chest pain, shortness of breath, or dizziness Prior Episodes: reports: single episode today Onset/Duration: reports: abrupt, this morning Timing: reports: improving Position/Activity at time of episode: reports: activity (going to bathroom) Symptoms prior to episode: reports: none Context: reports: collapsed Loss of Consciousness: brief (seconds) Location of injury. (If syncope resulted in an injury.): reports: none Current Symptoms: reports: weakness. denies: chest pain, nausea, dizzy Similar symptoms previously: reports: previous diagnosis, tests Recently Seen Here or By Another Healthcare Provider: Yes Review of Systems - Adult - REVIEW OF SYSTEMS - ADULT Constitutional: denies: chills, fever Eyes: denies: decreased vision, blurred vision, double vision Ears, Nose, Mouth & Throat: denies: ear pain, sinus problem, throat pain, throat swelling Cardiovascular: reports: syncope. denies: chest pain, palpitations Respiratory: denies: cough, shortness of breath, wheezing Gastrointestinal: reports: abdominal pain. denies: diarrhea, nausea, vomiting Genitourinary: reports: no symptoms reported Musculoskeletal: reports: no symptoms reported Integumentary: reports: no symptoms reported Neurological: reports: syncope. denies: dizziness/vertigo, headache/migraines Psychiatric: reports: no symptoms reported Endocrine: reports: no symptoms reported Hematologic/Lymphatic: reports: no symptoms reported Allergic/Immunologic: reports: no symptoms reported All Other Systems: Reviewed and Negative Past History - Adult - PAST MEDICAL HISTORY-ADULT Review of Records: reports: Old Records Reviewed, Nursing Assessment Review, Medications Reviewed Major Childhood Illnesses: reports: denies history Cardiovascular: reports: CHF, HTN Respiratory: reports: denies history Gastrointestinal: reports: denies history Obstetrical/Gynecological: reports: denies history Genitourinary: reports: denies history Musculoskeletal: reports: arthritis Neurological: reports: Seizures/Epilepsy, other (NEUROPATHY) Psychiatric: reports: depression Endocrine/Immune: reports: Diabetes, other (neuropathy) Other Conditions: reports: denies history - PRIOR SURGERIES/PROCEDURES Surgical/Procedure History: reports: orthopedic (extremity) - IMMUNIZATION STATUS Childhood Immunizations: See Nurse Assessment Flu Vaccine: See Nurse Assessment - FAMILY HISTORY Family History: reviewed, not pertinent - SOCIAL HISTORY Smoking: non-smoker Living Situation: family Physical Exam-General - PHYSICAL EXAM-ADULT Initial Vital Signs Reviewed: Yes - CONSTITUTIONAL General Appearance: no apparent distress, lethargic - EYES Eyes: PERRL/EOMI, pink conjunctivae - HEAD, EARS, NOSE, MOUTH & THROAT HENMT: normocephalic/atraumatic, moist mucous membranes, normal ENT inspection - NECK Neck: full range of motion, normal inspection - RESPIRATORY Respiratory: lungs clear, normal breath sounds, no respiratory distress, no accessory muscle use - CARDIOVASCULAR Cardiovascular: regular rate, rhythm, no edema, no murmur - GASTROINTESTINAL (ABDOMEN) Abdominal Exam: normal bowel sounds, soft, no organomegaly, no pulsatile mass, tenderness (Mild RUQ) - MUSCULOSKELETAL Extremity: normal range of motion, no calf tenderness, normal capillary refill - SKIN Integumentary: normal color, warm/dry - NEUROLOGIC Neurologic: grossly normal, no motor/sensory deficits - PSYCHIATRIC Psych/Mental Status: normal thought content, normal thought process, oriented x 3, other (lethargic but answers all questions) Progress - PLAN OF CARE/RESULTS Progress/Plan/Lab Results: Vital Signs - 8 hr 04/03/17 09:33 04/03/17 12:20 Temperature 97.7 F Pulse Rate 89 84 Respiratory Rate 18 12 Blood Pressure 143/93 147/110 O2 Sat by Pulse Oximetry 95 Laboratory Results - last 24 hr 04/03/17 04/03/17 04/03/17 10:20 10:20 12:45 WBC 5.98 RBC 3.92 L Hgb 12.3 L D Hct 37.4 L D MCV 95.4 MCH 31.4 H MCHC 32.9 L RDW Std Deviation 14.5 Plt Count 74 L MPV Not Reportable Immature Gran % (Auto) 0.3 Neut % (Auto) 77.4 H Lymph % (Auto) 13.2 L Benson % (Auto) 8.7 Eos % (Auto) 0.2 Baso % (Auto) 0.2 Immature Gran # (Auto) 0.02 Neut # (Auto) 4.63 Lymph # (Auto) 0.79 L Benson # (Auto) 0.52 Eos # (Auto) 0.01 Baso # (Auto) 0.01 Sodium 136 Potassium 3.5 Chloride 102 Carbon Dioxide 21 L Anion Gap 13 BUN 33 H Creatinine 2.0 H Estimated GFR/1.73 m2 34 BUN/Creatinine Ratio 17 Glucose 137 H Calculated Osmolality 281 Calcium 7.9 L Total Bilirubin 1.00 AST 338 H ALT 290 H Alkaline Phosphatase 188 H Total Protein 5.9 L Albumin 3.2 L Globulin 3.0 Albumin/Globulin Ratio 1.0 Amylase 27 Lipase 9 L Urine Source CLEAN CATCH Urine Color YELLOW Urine Clarity CLEAR Urine pH 5.0 Ur Specific Faith 1.020 Urine Protein 3+(500 mg/dL) A Urine Ketones NEGATIVE Urine Blood 4+ Urine Nitrite NEGATIVE Urine Bilirubin NEGATIVE Urine Urobilinogen 1+(1 mg/dL) Urine Microscopic RBC 20-40 A Urine WBC TRACE A Urine Microscopic WBC 10-20 A Ur Epithelial Cells <10 Urine Bacteria 2+ Urine Glucose NEGATIVE Orders Category Date Time Status Admit - [facility] Routine AdmDCTranf 04/03/17 14:29 Ordered Saline Loc DIRECTED Care 04/03/17 10:00 Active NPO Diet 04/03/17 10:00 Active HEAD W/O CONTRAST [CT] Stat Exams 04/03/17 10:01 Completed gallbladder [US GB < RUQ (LIMITED)] [US] Stat Exams 04/03/17 11:45 Completed AMYLASE [CHEM] Stat Lab 04/03/17 10:20 Completed CBC WITH ELECTRONIC DIFF [HEME] Stat Lab 04/03/17 10:20 Completed COMPREHENSIVE METABOLIC PANEL [CHEM] Stat Lab 04/03/17 10:20 Completed LIPASE [CHEM] Stat Lab 04/03/17 10:[address] W/POSS RFLX CULT [URINALYSIS] Stat Lab 04/03/17 12:45 Completed URINE CULTURE [RM] Routine Lab 04/03/17 13:17 Ordered Transfer/Admit Order [TRANSFER] Routine Transfer 04/03/17 14:29 Ordered Vital Signs Temp Pulse Resp BP Pulse Ox 04/03/17 12:20 84 12 147/110 04/03/17 09:33 97.7 F 89 18 143/93 95 No Known Allergies Allergy (Verified 02/03/17 20:38) Alprazolam [Xanax] 1 mg PO QHS 12/06/16 Albuterol Sulfate [Proair Hfa] 8.5 gm IH Q6H PRN PRN 03/14/17 Oxycodone HCl [Oxycodone HCl ER] 60 mg PO DAILY #20 tab.er.12h 03/20/17 Cyclobenzaprine HCl 10 mg PO BID 04/01/17 Lisinopril 04/01/17 Dietary Diet NPO Start SunApril 03 1000 Laboratory 04/03/17 04/03/17 04/03/17 12:45 10:20 10:20 WBC 5.98 RBC 3.92 L Hgb 12.3 L D Hct 37.4 L D MCV 95.4 MCH 31.4 H MCHC 32.9 L RDW Std Deviation 14.5 Plt Count 74 L MPV Not Reportable Immature Gran % (Auto) 0.3 Neut % (Auto) 77.4 H Lymph % (Auto) 13.2 L Benson % (Auto) 8.7 Eos % (Auto) 0.2 Baso % (Auto) 0.2 Immature Gran # (Auto) 0.02 Neut # (Auto) 4.63 Lymph # (Auto) 0.79 L Benson # (Auto) 0.52 Eos # (Auto) 0.01 Baso # (Auto) 0.01 Sodium 136 Potassium 3.5 Chloride 102 Carbon Dioxide 21 L Anion Gap 13 BUN 33 H Creatinine 2.0 H Estimated GFR/1.73 m2 34 BUN/Creatinine Ratio 17 Glucose 137 H Calculated Osmolality 281 Calcium 7.9 L Total Bilirubin 1.00 AST 338 H ALT 290 H Alkaline Phosphatase 188 H Total Protein 5.9 L Albumin 3.2 L Globulin 3.0 Albumin/Globulin Ratio 1.0 Amylase 27 Lipase 9 L Urine Source CLEAN CATCH Urine Color YELLOW Urine Clarity CLEAR Urine pH 5.0 Ur Specific Faith 1.020 Urine Protein 3+(500 mg/dL) A Urine Ketones NEGATIVE Urine Blood 4+ Urine Nitrite NEGATIVE Urine Bilirubin NEGATIVE Urine Urobilinogen 1+(1 mg/dL) Urine Microscopic RBC 20-40 A Urine WBC TRACE A Urine Microscopic WBC 10-20 A Ur Epithelial Cells <10 Urine Bacteria 2+ Urine Glucose NEGATIVE Result Diagrams: 04/03/17 10:20 04/03/17 10:20 - CT/MRI 1 CT Study: Head Impression: Abnormal CT Results: chronic lacunar infarcts at the marybeth, no acute process, no hemorrhage - ULTRASOUND (By Radiology) 1 US Study: Gallbladder Impression: Abnormal US Results: sludge, tiny stones, fatty liver, R renal cyst, r sided pleural effusion - CONSULTS/PCP/HOSPITALIST Notification #1 *Consult/PCP/Hospitalist*: environmental intern for hospitalist Time Discussed: 14:28 Consult Disposition: Admit Departure - Departure Time of Disposition Decision: 14:28 DIAGNOSIS: Syncope, Elevated liver enzymes, Lip laceration, Acute kidney injury ( nontraumatic) Disposition: ADMITTED INPATIENT 09 Certified Medical Emergency: Emergent Condition: Stable Referrals and Follow-Ups: Ronald Posadas MD [Primary Care Provider] - - Critical Care Note This patient required my direct & personal management of CC.: No Attestation - Physician/ SYLVIA Attestation The physician spent face to face time with patient:: Yes Advanced Practice Provider documentation review:: The physician spent face to face time with this patient and agrees with all MLP documentation, treatment, and medical decision making by the MLP. See provider notes for further information. This chart was documented by the indicated scribe, (Tashi Hawkins, Scribe) and accurately reflects the services I performed and decisions made by , Mat Lee MD, as attested by the provider's signature.
[2017-04-03] MEDS ORDERED: ZOFRAN IV PRN (15:57)
--- NOTE | 2017-04-03 16:22 | HISTORY AND PHYSICAL ---
PRIMARY CARE PHYSICIAN: Ronald Posadas MD CHIEF COMPLAINT: Syncopal episode last night. HISTORY OF PRESENT ILLNESS: This is a 61-year-old male, who is well known to this hospitalist service. He actually presented this morning for his daily infusion for a left great toe osteomyelitis when he reported that he had a syncopal episode last night at home when he got up to go to the bathroom during the night and that he busted his lip and was not feeling well. So he was sent to the emergency room for evaluation and treatment. Workup up there showed his liver enzymes to be elevated with an AST of 338 and ALT of 290, an alkaline phosphatase of 188. Amylase and lipase were normal. Urinalysis showed 4+ blood, negative nitrites, trace of white blood cells, and 2+ bacteria. We did an abdomen ultrasound that showed sludge and possible tiny stones in the gallbladder and mild fatty infiltration of the liver. CT of the head showed chronic lacunar infarcts at the marybeth. No visible acute process. No hemorrhage or mass effect. It is noted in his medical record that he was in the emergency room on 04/01/2017 with complaints up epigastric abdominal pain. His liver enzymes at that time were an AST of 115, ALT of 92, alkaline phosphatase of 158. Again, that was 2 days ago. He was discharged home to continue his daily infusion. So, he will be admitted at this time to the Medical Unit at [facility] for further evaluation and treatment. 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 Peripheral neuropathy. Seizures as a child. Chronic kidney disease, stage 2-3. PAST SURGICAL HISTORY: Right arm, right leg and right hip and toe amputation and a penile implant. SOCIAL HISTORY: Denies any tobacco, alcohol, or illicit drug use. ALLERGIES: He has no known drug allergies. HOME MEDICATIONS: We will verify his home medications and restart those as appropriate. LABORATORY DATA: Showed a white blood cell count of 5.98, hemoglobin of 12.3, hematocrit 37.4, platelets 74,000. Sodium 136, potassium 3.5, chloride 102, CO2 21, BUN of 33, creatinine 2. Glucose 137, AST of 338, ALT 290, alkaline phosphatase 188, amylase and lipase are normal. Urinalysis showed 4+ blood, a trace of white blood cells, and 2+ bacteria. IMAGING: Head CT showed chronic lacunar infarcts at the marybeth. No visible acute process. No hemorrhage or mass effect. REVIEW OF SYSTEMS: He denied any fever, chills, blurred vision. He was positive for dizziness. He denied any chest pain, coughing, shortness of breath. He has been positive for epigastric abdominal pain. Denied any nausea, vomiting, constipation, diarrhea, burning or hurting with urination. PHYSICAL EXAMINATION: VITAL SIGNS: On arrival, he had a temperature of 97.7 degrees, pulse 89, respirations 18, blood pressure 143/93, saturating 95% on room air. GENERAL: This is a 61-year-old male, who is lying in the bed and answers questions appropriately. HEENT: Normocephalic and atraumatic. Pupils are equal, round, reactive to light. The extraocular movements are intact. Oropharynx and nares are clear. NECK: Supple. LUNGS: Clear to auscultation bilaterally with equal lung expansion and chest wall movement. HEART: With regular rate and rhythm. No murmurs, rubs, or gallops. ABDOMEN: Soft. There is some mild tenderness to palpation to the epigastric and right upper quadrant. Bowel sounds are present x4 quadrants. EXTREMITIES: There is no clubbing, cyanosis, or edema. NEUROLOGICAL: The cranial nerves 2-12 appear grossly intact. ASSESSMENT: 1. Syncope. 2. Elevated liver function tests. 3. Cholecystitis with cholelithiasis. 4. Osteomyelitis to the left great toe. PLAN: 1. He will be admitted to the Medical Unit at [facility] and placed on telemetry. Placed on clear liquids tonight, nothing per oral after midnight. We will recheck a complete blood count and a complete metabolic panel in the a.m. If there is no improvement in his liver enzymes, then we will touch base with Gastroenterology and possibly have him transferred across town to [facility] at that time. 2. We will continue his daptomycin 500 mg IV q.24, and Rocephin 2 g IV q.24 for his osteomyelitis of his left great toe. We will verify his home medications and we will place on normal saline 75 mL an hour. We will check a carotid ultrasound in the a.m. Again, he had an echocardiogram in November of this year so we will not repeat that at this time. Dictated by JEANNETTE Perez for Mitch Horowitz MD cc: JEANNETTE Perez MD Moses Awoniyi, MD
[2017-04-03] MEDS ORDERED: CUBICIN (FOR INPATIENT USE) 500 MG in NS 100 ML IV SCH (17:00)
[2017-04-03] MEDS: ROCEPHIN 2 GM/NS 2 GM/50 ML IVPB IV SCH (19:14)
[2017-04-03] MEDS: NS 1,000 ML IV SCH (19:26)
[2017-04-03] MEDS: CATAPRES PO PRN (21:33)
[2017-04-04] MEDS: TYLENOL PO PRN (05:29)
[2017-04-04 06:01] LABS: BASO% 0.2 % (0.0-0.8); EOS# 0.12 X1000 (0.0-0.7); EOS% 2.1 % (0.0-10.0); HEMATOCRIT 37.9 % (42.0-52.0); HEMOGLOBIN 12.3 g/dL (14.0-18.0); IMM GRAN# 0.01 X1000 (0.0-0.04); IMM GRAN% 0.2 % (0.0-0.5); MANUAL DIFF NEEDED? YES; MCH 31.2 PG (27-31); MCHC 32.5 g/dL (33-37); MCV 96.2 FL (81-99); MONO# 0.54 X1000 (0.11-0.59); MONO% 9.6 % (1.7-9.3); NEUT% 64.9 % (42.2-75.2); PLT 71 X1000 (130-400); RBC 3.94 XMIL (4.7-6.1)
[2017-04-04 06:22] LABS: POTASSIUM 3.6 mmol/L (3.5-5.1); TOTAL BILIRUBIN 0.9 mg/dL (0.20-1.00); TOTAL PROTEIN 5.9 g/dL (6.3-8.3)
[2017-04-04] MEDS ORDERED: VENTOLIN HFA INH PRN (06:43)
[2017-04-04 06:57] LABS: LYMPHS 23 % (21-51); MONO 4 % (1-9)
--- NOTE | 2017-04-04 08:23 | PROGRESS NOTE ---
DATE: 04/04/2017 SUBJECTIVE: Patient notes that he is feeling better. He is still having some pain in his abdomen in the bilateral lower quadrants . Denies any chest pains or palpitations. Denies any fevers or chills currently. OBJECTIVE: Vital Signs: Reviewed. Temperature 97 degrees, pulse 93, respiratory rate 28, BP 142/98. He did have blood pressures yesterday of 151/108 and 182/110, easily treated with clonidine. HEENT: Normocephalic and atraumatic. MESFIN. Neck: Supple. CV: Regular rate. Chest: Relatively clear. Abdomen: Soft, nondistended. Mildly tender in the bilateral lower quadrants. No tenderness over the right upper quadrant. Extremities: Moves all extremities. Neurologic: No focal changes. Awake, Alert, pleasant. No distress. Labs: Hemoglobin and hematocrit stable at 12 and 37. BUN and creatinine stable at 29 and 1.1. AST 182, ALT 235, total bilirubin 0.9. ASSESSMENT: 1. Acute hepatitis. The patient had a recent ultrasound with gallbladder sludging and tiny stones, and a right-sided pleural effusion with mild fatty liver infiltration. 2. Osteomyelitis of the left great toe. He has been on daptomycin at home. 3. Syncope, appears resolved. 4. Bilateral lower quadrant abdominal pain. 5. Chronic renal failure, stable. 6. Hypocalcemia. 7. Mild protein calorie malnutrition. 8. Hypertension. Blood pressures are much improved this morning compared to last night, although I think last night, his blood pressures were more pain-induced. He currently is on lisinopril as well. PLAN: At this point, we will advance patient's diet to a regular diet. We will follow. If his liver functions continue to remain elevated, we will ask surgery to evaluate for possible cholecystectomy. Currently, LFT's are improving and overall he looks like he is feeling better. We will continue to hold his daptomycin presently as this certainly could be the cause of his elevation in his liver functions. We will continue his Rocephin for now. His liver functions also could be elevated simply secondary to the fall. He notes that he did fall and hit his abdomen but he does not remember where. Further orders as needed. cc: Mitch Horowitz MD MTDD
[2017-04-04] MEDS: OXYCONTIN PO SCH (09:28)
[2017-04-04] MEDS: PRINIVIL PO SCH (09:29)
[2017-04-04] MEDS: ROCEPHIN 2 GM/NS 2 GM/50 ML IVPB IV SCH (17:03)
[2017-04-04] MEDS: NS 1,000 ML IV SCH (21:57)
[2017-04-04] MEDS: XANAX PO SCH (21:58)
[2017-04-05 02:36] LABS: BE -0.8 mmoll (-3.0-3.0); BLOOD TYPE ARTERIAL; DRAW SITE R BRACHIAL; O2(CT) 16.4 mL/dL (15.0-23.0); PCO2(98.6) 41 mmHg (35-45); PO2(98.6) 66 mmHg (60-100); SAMPLE BLOOD; SAO2 94.7 % (95.0-100.0); THB 12.7 g/dL (11.5-17.4); pH(98.6) 7.38 (7.35-7.45)
[2017-04-05 02:39] LABS: ALLEN TEST YES; MODALITY CANNULA
[2017-04-05 02:53] LABS: HEMATOCRIT 37.1 % (42.0-52.0); HEMOGLOBIN 11.9 g/dL (14.0-18.0); MCH 31.2 PG (27-31); MCHC 32.1 g/dL (33-37); MCV 97.4 FL (81-99); PLT 71 X1000 (130-400); RBC 3.81 XMIL (4.7-6.1)
[2017-04-05 03:10] LABS: CALCIUM 7.8 mg/dL (8.8-10.2); MAGNESIUM 1.9 mg/dL (1.5-2.7); POTASSIUM 4.2 mmol/L (3.5-5.1); TOTAL BILIRUBIN 0.9 mg/dL (0.20-1.00); TOTAL PROTEIN 6.1 g/dL (6.3-8.3)
[2017-04-05] MEDS ORDERED: DILAUDID ONE (03:45)
[2017-04-05] MEDS ORDERED: DILAUDID IV ONE (04:21)
--- NOTE | 2017-04-05 08:11 | Diag Imaging Result Doc PS360 ---
EXAM: ABDOMEN/PELVIS W/O CONTRAST INDICATION: severe abd pain, painful palpation COMPARISON: 03/18/2017 FINDINGS: There are small effusions at the lung bases, largest on the right. There are calcified granulomata at the right lower lung zone. There is mild subsegmental atelectasis at the lung bases. There is cardiomegaly. There are calcified granulomata in the spleen. The gallbladder is distended and there is suggestion of layering sludge or stones in the gallbladder lumen. This is stable. There is no evidence of pericholecystic inflammatory change. There are a few stable renal hypodensities favoring cysts. No renal stones or hydronephrosis appreciated. Urinary bladder is grossly unremarkable. There is no evidence of bowel obstruction. There is suggestion of mild mesenteric and surrounding soft tissue anasarca. There is no definite focal inflammatory change. The remainder of the solid viscera of the abdomen and pelvis and the remainder of the GI tract are essentially unremarkable and stable as compared to the previous study. IMPRESSION: 1.Suggestion of mild mesenteric and surrounding soft tissue anasarca. 2.Bilateral small pleural effusions. 3.Suggestion cholelithiasis or gallbladder sludge with no surrounding inflammatory change, stable. 4.Other incidental/nonacute findings detailed above. Electronically signed by Jeff Chavez 04/05/2017 8:09 AM
--- NOTE | 2017-04-05 08:17 | Diag Imaging Result Doc PS360 ---
EXAM: HEAD W/O CONTRAST INDICATION: FALL WITH HEAD INJURY COMPARISON: 04/03/2017 FINDINGS: There is excessive motion artifact on multiple slices, which somewhat limits the study. There are stable chronic lacunar infarcts in the marybeth. There is patchy low attenuation in the periventricular and subcortical white matter suggesting microangiopathy, stable. There is no discrete intracranial mass, mass effect, or intracranial hemorrhage. There is no evidence of acute infarct given the limited sensitivity of CT versus MRI. The surrounding soft tissues and bony structures are essentially unremarkable. IMPRESSION: Chronic changes as described but no definite acute intracranial pathology. Electronically signed by Jeff Chavez 04/05/2017 8:15 AM
--- NOTE | 2017-04-05 08:21 | PROGRESS NOTE ---
DATE: 04/05/2017 SUBJECTIVE: Patient is confused, disoriented this a.m. Constantly moving about in the bed. OBJECTIVE: Vital signs: Temperature 98, pulse 108 to 94, respiratory 20, BP 121/85, saturation 100% on 3 L. General: Patient is confused, disoriented this morning. Does not respond to commands. Does not answer questions. He is constantly moving about in the hospital bed. Will occasionally look toward your direction when questions are asked. He does withdrawal to painful stimuli. HEENT: Normocephalic. Neck: Supple. CV: Regular rate. Chest: Clear. Abdomen: Soft. Appears tender. Appears to have voluntary guarding. Extremities: Moves all extremities. No edema. Neurologic: Unable to assess. Patient is not currently following commands. Does not answer questions. DIAGNOSTIC DATA: WBC 7, hemoglobin and hematocrit 11 and 37. ABG with a pH of 7.38, pCO2 41, PO2 of 66, lactate of 1. Sodium 135, BUN 33, creatinine 2.3, calcium 7.8. AST 119, ALT 198. ASSESSMENT: 1. Acute delirium, uncertain etiology. Certainly his labs all appear to be improving. His AST and ALT both are improving. Ammonia level is 24. He does not appear septic at the current time with his lactate of 1, ABG with pH of 7.38, and normal hemoglobin and hematocrit and white count. He has had no fever. 2. Acute hepatitis. Certainly still appears more secondary to fall. His AST and ALT are currently improving. 3. Cholelithiasis with biliary sludging and a mildly dilated gallbladder. Does not appear to have acute cholecystitis by ultrasound or CT or clinically. 4. Osteomyelitis left great toe. His daptomycin has been held which certainly could be contributing to his improving AST and ALT. He is continued on Rocephin. Does not appear septic at the current point. PLAN: We will transfer the patient to the ICU currently. Will ask surgery to evaluate for any intra-abdominal process. His CT of the abdomen essentially was normal. He has developed bilateral pleural effusions but that certainly would not have caused his acute delirium. He does appear to be tender in his abdomen more so than he was yesterday. He is certainly having some guarding, although he does not appear to be septic. CT did not show any free air or any bleeding. Uncertain etiology of patient's acute delirium. It is certainly possible that his friends or family assisted him with medications last night. He was awake, alert, and oriented while they were in the room. Some time after the left he became more somnolent and sleepy and this morning is acutely delirious. As noted, we will move him to the ICU. We will follow closely. Forty-five minutes were spent in . cc: Mitch Horowitz MD
[2017-04-05 08:24] LABS: BILIRUBIN URINE NEGATIVE (NEGATIVE); BLOOD URINE 4+ (NEGATIVE); CLARITY CLEAR (CLEAR); COLOR AMBER; GLUCOSE URINE NEGATIVE (NEGATIVE); LEUKOCYTES URINE TRACE (NEGATIVE); NITRITE URINE NEGATIVE (NEGATIVE); UROBILINOGEN URINE NORMAL
[2017-04-05 08:44] LABS: URINE CULTURE PL NEEDED? YES; URINE EPITHELIAL CELLS <10 /HPF (<10); URINE SOURCE CATH; URINE WBC <10 /HPF (<10)
[2017-04-05] MEDS: OXYCONTIN PO SCH (08:50)
[2017-04-05] MEDS: PRINIVIL PO SCH (08:50)
[2017-04-05] MEDS: NS 1,000 ML IV SCH ×2 (08:50→20:52)
[2017-04-05 09:31] LABS: UR AMPHETAMINES QUAL NONE DETECTED (NONE DETECT); UR BARBITUATES QUAL NONE DETECTED (NONE DETECT)
[2017-04-05 09:32] LABS: UR BENZODIAZEPIN QUAL PRESUMPTIVE POSITIVE (NONE DETECT); UR CANNABINOIDS QUAL NONE DETECTED (NONE DETECT); UR COCAINE QUAL NONE DETECTED (NONE DETECT); UR MDMA QUAL NONE DETECTED (NONE DETECT); UR METHADONE QUAL PRESUMPTIVE POSITIVE (NONE DETECT); UR METHAMPHETAMINE QUAL NONE DETECTED (NONE DETECT); UR OPIATES QUAL NONE DETECTED (NONE DETECT); UR OXYCODONE QUAL PRESUMPTIVE POSITIVE (NONE DETECT); UR PCP QUAL NONE DETECTED (NONE DETECT); UR TCA QUAL NONE DETECTED (NONE DETECT)
[2017-04-05] MEDS: SANTYL OINT TOP SCH (10:20)
[2017-04-05] MEDS: LOPRESSOR PO SCH ×3 (10:20→23:00)
--- NOTE | 2017-04-05 10:51 | CONSULTATION ---
DATE OF CONSULTATION: 04/05/2017 REQUESTING PHYSICIAN: Dr. Horowitz. REASON FOR CONSULTATION: Concerning cholelithiasis. HISTORY OF PRESENT ILLNESS: A 61-year-old, male, who initially presented with a syncopal episode. He also had abdominal pain. He was seen in emergency department, had a normal ultrasound of the right upper quadrant with normal gallbladder, and has had a CT scan that showed sludge in his gallbladder, but no signs of acute cholecystitis. Initially when he did come in, his liver function tests were slightly elevated. There has been a report the patient has taken Cubicin recently for treatment of an infection of his foot. His liver function tests have improved. His bilirubin was never elevated. He was transferred to the ICU because of some altered mental status. He is still somewhat altered, but at this time I cannot get any abdominal pain. When I asked the family about any kind of postprandial abdominal pain, he has had some, but it is difficult to get a full history because of the patient's mental status. Again, there were no signs on imaging that he has got acute cholecystitis. I was asked to weigh an opinion on this current scenario. PAST MEDICAL HISTORY: 1. Osteomyelitis with dry gangrene of his left great toe. 2. Diabetes mellitus type 2. 3. Hypertension. 4. Depression. 5. Congestive heart failure with an EF of 30%. 6. Pulmonary arterial hypertension and diastolic dysfunction. 7. Peripheral neuropathy. 8. Seizures as a child. 9. Chronic kidney disease stage II-III. PAST SURGICAL HISTORY: Right arm, right leg and right hip surgery, toe amputation and a penile implant. SOCIAL HISTORY: By report, no alcohol, tobacco or illicit drugs. ALLERGIES: None. HOME MEDICATIONS: Reviewed from the ER. CURRENT MEDICATIONS: Reviewed from the MAR. Of note, patient is on Rocephin and daptomycin. There is a report he has been on Cubicin. FAMILY HISTORY: Reviewed with family. REVIEW OF SYSTEMS: Difficult to obtain secondary to patient's mental status, but reviewed from his admission. PHYSICAL EXAM: Vital Signs: Patient is currently afebrile. His vital signs have been stable, besides a mild tachycardia of 106. General exam: No acute distress, but confused. male looks stated age. HEENT: Normocephalic, atraumatic. Pupils equal, round, react to light. Mucous membranes moist. Oropharynx benign. Neck: Supple. Trachea midline. Cardiovascular: Regular rate and rhythm. Lungs: Clear. Abdomen: Soft. No tenderness to palpation at this time, but again difficult to exam given the patient's mental status. Extremities: Wounds noted to the left lower extremity. It had been previously followed by Dr. King with wound care. Neurologic: Confused. Vascular: Extremities appear to be perfused. LABORATORY: White blood cell count is 7, hematocrit 37. CMP reviewed. Of note, his AST is 119 and ALT 198, his alkaline phosphatase is 169. His bilirubin 0.9. Remainder of labs reviewed. IMAGING: CT scan and ultrasound reviewed and noted above. ASSESSMENT/PLAN: A 61-year-old, male with cholelithiasis and altered mental status. 1. Altered mental status. At this time, being managed by the hospitalist service. He had a CT scan of his head done recently that showed chronic changes. He is still altered. This may be related to medications. We will defer management to the hospitalist service. 2. Multiple medical comorbidities, although currently at this time he is being managed by the hospitalist service. 3. Cholelithiasis. At this time no signs of acute cholecystitis. He is on Rocephin which could potentially cover any acute cholecystitis. At this time, would like to let his acute delirium improve before surgical intervention. It sounds like he may have a history of symptomatic cholelithiasis, although again at this time I do not think patient is an ideal surgical candidate. He also has a lot of medical issues that need to be optimized prior to surgery. We will follow with you. 4. As far as his elevated liver function tests go, he has been on history of Cubicin which may contribute to some hepatic toxicity, which may be why he had elevated liver function tests. They are improving. I would recommend continuing to watch him for now. cc: Chavez Callejas MD
[2017-04-05] MEDS ORDERED: BLISTEX MEDICATED BERRY LIP BALM TOP PRN (12:04)
[2017-04-05] MEDS ORDERED: NARCAN IV ONE (12:05)
--- NOTE | 2017-04-05 14:48 | Extremity Venous Study ---
EXAM: Carotid Ultrasound - 04/04/2017 HISTORY: syncope TECHNIQUE: Carotid flow studies COMPARISON: None. FINDINGS: Exam is submitted for dictation of 04/05/2017. There is mild intimal thickening of bilateral carotid systems. There is no discrete substantial focal atherosclerotic plaquing identified. Maximal systolic velocity in the right internal carotid artery is 58 cm/s, maximum diastolic velocity is 27 cm/s. The right internal to common carotid artery systolic velocity ratio is 0.72. The flow velocities and ratio are consistent with less than 40% stenosis in the right internal carotid artery. Maximal systolic velocity in the left internal carotid artery is 59 cm/s, maximum diastolic velocity is 19 cm/s. The left internal to common carotid artery systolic velocity ratio is 0.87. The flow velocities and ratio are consistent with less than 40% stenosis in the left internal carotid artery. The bilateral vertebral arteries demonstrate antegrade flow. IMPRESSION: No evidence of hemodynamically significant stenosis in the right nor the left carotid system. Electronically signed by Mata Murillo 04/05/2017 2:46 PM
[2017-04-05] MEDS: DILAUDID IV PRN (16:42)
[2017-04-05] MEDS: ROCEPHIN 2 GM/NS 2 GM/50 ML IVPB IV SCH (16:42)
[2017-04-05 19:10] LABS: UR BARBITUATES QUAL NONE DETECTED (NONE DETECT); UR BENZODIAZEPIN QUAL PRESUMPTIVE POSITIVE (NONE DETECT); UR CANNABINOIDS QUAL NONE DETECTED (NONE DETECT); UR COCAINE QUAL NONE DETECTED (NONE DETECT); UR MDMA QUAL NONE DETECTED (NONE DETECT); UR METHADONE QUAL NONE DETECTED (NONE DETECT); UR METHAMPHETAMINE QUAL NONE DETECTED (NONE DETECT); UR OPIATES QUAL NONE DETECTED (NONE DETECT); UR OXYCODONE QUAL PRESUMPTIVE POSITIVE (NONE DETECT); UR PCP QUAL NONE DETECTED (NONE DETECT); UR TCA QUAL NONE DETECTED (NONE DETECT)
[2017-04-05 19:20] LABS: UR AMPHETAMINES QUAL NONE DETECTED (NONE DETECT)
[2017-04-05] MEDS: XANAX PO SCH ×2 (20:50→23:00)
--- NOTE | 2017-04-06 05:44 | PROGRESS NOTE ---
DATE: 04/06/2017 SUBJECTIVE: No major changes reported by the nursing staff. He has been altered for most of the night but has had no significant complaints of abdominal pain at this point. OBJECTIVE: Vital Signs: Patient is currently afebrile. His vital signs have been stable. General: No acute distress but altered. Does not respond to questions. HEENT: Normocephalic, atraumatic. Pupils equal, round, reactive to light. Mucous membranes moist. Oropharynx benign. Neck: Supple. Trachea midline. Cardiovascular: Regular rate and rhythm. Lungs: Grossly clear. Abdomen: Difficult exam given patient's altered mental status but no real abdominal pain elicited on this examination. Extremities: Moves all extremities. Wounds to his left lower extremity are stable. Neurologic: Altered. LABS: Currently pending. ASSESSMENT AND PLAN: A 61-year-old male with altered mental status and cholelithiasis. 1. Altered mental status. At this time, he is being managed by the hospitalist service. Workup thus far has been negative for any acute pathology on CT scan. He does have a positive urinalysis with methadone. At this time, we will continue to monitor. 2. Multiple medical comorbidities currently being managed by the hospitalist service. 3. Cholelithiasis. At this time, I do not suspect he has acute cholecystitis. He is on antibiotics to cover potentially acute cholecystitis but at this time I would want his acute delirium to improve before any kind of surgical intervention. We will follow with you while he is in the hospital. cc: Chavez Callejas MD
[2017-04-06] MEDS: OXYCONTIN PO SCH (09:04)
[2017-04-06] MEDS: LOPRESSOR PO SCH ×2 (09:22→20:40)
[2017-04-06] MEDS: PRINIVIL PO SCH (09:22)
[2017-04-06] MEDS: NS 1,000 ML IV SCH (09:22)
[2017-04-06] MEDS: SANTYL OINT TOP SCH (09:23)
[2017-04-06] MEDS ORDERED: VANCOMYCIN IV PER PHARMACY MISC SCH (11:45)
--- NOTE | 2017-04-06 12:08 | PROGRESS NOTE ---
DATE: 04/06/2017 SUBJECTIVE: The patient appears more alert, oriented. OBJECTIVE: Vital Signs: Blood pressure 133/99, heart rate of 81, respiratory rate 12, temperature 98.6 degrees, satting 98% on 2 L. Cardiovascular: Regular rate and rhythm. Pulmonary: Bilateral breath sounds. Clear to auscultation. GI: Soft, nontender, nondistended. Bowel sounds are positive. LABORATORY DATA: White count 7.7. I do not have new data today. Last creatinine was 2.3. PROBLEM LIST: 1. Encephalopathy. Delirium overall appears to be improving. Will continue to monitor. Unclear if this may be related to medications. Urine drug screen was positive for methadone. 2. Acute hepatitis appears to be improving or had been improving. I do not have labs for today, but will monitor tomorrow. 3. Cholelithiasis. Clinically does not have acute cholecystitis. Right now surgery will likely be pursued as outpatient once he has finished his other active issues. 4. Osteomyelitis. He had been on daptomycin, which was stopped because of elevated liver enzymes. He is still on Rocephin, however he did grow out methicillin-resistant Staphylococcus aureus in addition to Proteus, and the Rocephin I do not think will be sufficient to cover that, although doxycycline may be. He had been on vancomycin before, but that had to be held because of infection. Infectious disease has been consulted. It is sensitive to doxycycline. Our options will either have to be vancomycin or doxycycline; I am going to go ahead and order doxycycline until Dr. Freeman can re-evaluate the patient. DISPOSITION: Pending resolution of multiple issues. Likely here another 1-2 days. cc: Joshua Lanza MD
[2017-04-06] MEDS ORDERED: DOXYCYCLINE 100 MG in NS 250 ML IV SCH (13:00)
[2017-04-06] MEDS ORDERED: HUMULIN R SUBQ SCH (16:00)
[2017-04-06] MEDS: ROCEPHIN 2 GM/NS 2 GM/50 ML IVPB IV SCH (16:20)
[2017-04-06] MEDS: CATAPRES PO PRN (17:02)
[2017-04-06 17:45] LABS: CALCIUM 7.8 mg/dL (8.8-10.2); POTASSIUM 4.7 mmol/L (3.5-5.1)
[2017-04-06 18:02] LABS: CK INDEX 2.1 (0.0-2.5); CK-MB 5.06 ng/mL (0.0-5.0)
--- NOTE | 2017-04-06 18:57 | EKG Report ---
Test Performed on : 04/06/2017 4:30:29 PM Test Reason : Rhythm change Blood Pressure : / mmHG Vent. Rate : 091 BPM Atrial Rate : 091 BPM P-R Int : 196 ms QRS Dur : 104 ms QT Int : 376 ms P-R-T Axes : 053 040 227 degrees QTc Int : 462 ms Sinus rhythm. with frequent premature ventricular complexes. Possible Left atrial enlargement T wave abnormality, consider inferolateral ischemia Prolonged QT Abnormal ECG When compared with ECG of 01-APR-2017 10:05, premature ventricular complexes. are now present T wave inversion less evident in Anterior leads QT has shortened Confirmed by Max Fernandez MD ([id number]) on 04/11/2017 10:00:44 PM
--- NOTE | 2017-04-06 19:02 | CONSULTATION ---
DATE OF CONSULTATION: 04/06/2017 CONCLUSION: Dr. Lanza consulted me to help treat the patient's left great toe osteomyelitis. Culture from the toe grew out Proteus and methicillin-resistant Staph aureus. The patient apparently had elevated liver function tests while taking daptomycin. RECOMMENDATIONS: I agree with giving the patient doxycycline. I have changed it though to be given 100 mg p.o. every 12 hours instead of being given 100 mg IV every 12 hours because doxycycline is extremely well absorbed and the blood level by taking medicine p.o. is equivalent to when it is given intravenously. As regards the patient's Proteus organism that was isolated from the patient's left great toe, it is susceptible to Levaquin and again Levaquin p.o. gives blood levels comparable to Levaquin if it is given IV. Therefore, I have ordered Levaquin 500 mg p.o. daily. If the patient's creatinine clearance drops below 30, then I would decrease the dose of Levaquin to 250 mg p.o. daily. I have also ordered an x-ray of the patient's left foot, specifically the left great toe to see if changes of osteomyelitis are present. DISCUSSION: The patient was unable to provide a history. No family member is present. The history I got from the computer. The patient was admitted to the hospital initially with a syncopal episode. He had been receiving as an outpatient daptomycin for his left great toe cellulitis. His liver function studies were found to be elevated and it was felt that this could be due to daptomycin. He now is awake. He does follow the discussion, but he was unable to answer questions about his medical history. LABORATORY STUDIES: Thus far show a CBC with a white count of 7730, hemoglobin of 11.9, and platelet count 71,000. Creatinine was 2.1. The GFR was 32. CT scan of the abdomen and pelvis showed anasarca, gallstones and bilateral pleural effusions. A culture taken from the patient's toe grew methicillin-resistant Staph aureus and Proteus mirabilis. PAST MEDICAL HISTORY: Including infectious disease history, the patient has osteomyelitis of the left great toe. He is a diabetic. He has hypertension, depression, congestive heart failure. Peripheral neuropathy. Seizures as a child but not as an adult. Chronic kidney disease. PAST SURGICAL HISTORY: Positive for surgeries. According to the history and physical, he has surgery on his right arm, right leg, right hip and toe amputation, as well as a penile implant. SOCIAL HISTORY: Patient denied smoking cigarettes, drinking alcoholic beverages or abusing drugs. ALLERGIES: Patient has no known drug allergies. IMAGING STUDIES: His CT scan of the head showed chronic lacunar infarcts. MEDICATIONS: His home medications include metoprolol, albuterol inhaler, cyclobenzaprine, Xanax, oxycodone and lisinopril. PHYSICAL EXAMINATION: Vital Signs: Temperature is 98.2, pulse 84, respirations 26, blood pressure 149/98. Patient weighs 210 pounds. General: This is a chronically ill-appearing, middle-aged male who is in no acute distress. HEENT: He can hear my spoken words. He appeared to be able to see near objects. There is no drainage from the nose or ears. Neck: No meningismus. Lungs: Clear to auscultation. Cardiovascular: Heart rate was regular. There were diminished peripheral pulses. Abdomen: Soft and nontender. Extremities: The left great toe had an ulcer on it and gangrenous changes. There was no odor to the toe. There was some serial purulent drainage coming from the toe. Neurologic: Patient is awake. He did follow request to move his extremities. There was no tremor. He did not answer my questions regarding his medical history. REVIEW OF SYSTEMS: Was unable to be obtained from the patient. Thank you for the consult. I am available to see the patient on a p.r.n. basis. I am signing off for now. cc: Blue Freeman MD
[2017-04-06] MEDS: DOXYCYCLINE PO SCH ×2 (20:05→20:41)
[2017-04-06] MEDS: LEVAQUIN PO SCH (20:30)
[2017-04-06] MEDS: HUMULIN R DOSE (PARKWAY) SUBQ SCH (20:39)
[2017-04-06] MEDS: XANAX PO SCH (20:40)
[2017-04-07] MEDS: NS 1,000 ML IV SCH ×2 (00:05→11:50)
[2017-04-07 06:35] LABS: CALCIUM 7.7 mg/dL (8.8-10.2); POTASSIUM 4.4 mmol/L (3.5-5.1)
[2017-04-07] MEDS: HUMULIN R DOSE (PARKWAY) SUBQ SCH ×4 (06:45→20:14)
[2017-04-07 07:26] LABS: HEMATOCRIT 38.6 % (42.0-52.0); HEMOGLOBIN 12.2 g/dL (14.0-18.0); MCH 30.8 PG (27-31); MCHC 31.6 g/dL (33-37); MCV 97.5 FL (81-99); PLT 73 X1000 (130-400); RBC 3.96 XMIL (4.7-6.1)
[2017-04-07] MEDS: OXYCONTIN PO SCH (08:14)
[2017-04-07] MEDS: DOXYCYCLINE PO SCH ×2 (08:23→20:01)
[2017-04-07] MEDS: PRINIVIL PO SCH (08:24)
[2017-04-07] MEDS: SANTYL OINT TOP SCH (08:24)
[2017-04-07] MEDS: LOPRESSOR PO SCH ×2 (08:24→20:01)
--- NOTE | 2017-04-07 09:53 | Diag Imaging Result Doc PS360 ---
FOOT COMPLETE LEFT - 04/06/2017 INDICATION: L great toe osteomyelitis TECHNIQUE: Three views COMPARISON: 03/13/2017 FINDINGS: There is advanced vascular disease of the small arteries of the foot and ankle. Stable degenerative heel spurs. Stable pedal edema. No fracture or dislocation. No bony erosions. IMPRESSION: No acute disease or change from prior. Electronically signed by Nas Armendariz 04/07/2017 9:50 AM
[2017-04-07] MEDS ORDERED: CALCIUM GLUCONATE 4.65 MEQ in NS 50 ML IV ONE (13:00)
[2017-04-07] MEDS: PERCOCET-10 PO PRN ×2 (13:12→19:59)
--- NOTE | 2017-04-07 13:20 | PROGRESS NOTE ---
DATE: 04/07/2017 SUBJECTIVE: Patient has no focal complaints except pain in his foot. He is still somewhat drowsy this morning but appears somewhat more oriented although he is still you know intermittently drowsy. OBJECTIVE: Blood pressure 131/62, heart rate 62, respiratory rate 13, temperature 97.8 degrees, 95% on 1 L.Cardiovascular: Regular rate and rhythm. Pulmonary: Bilateral breath sounds. Clear to auscultation. GI: Soft, nontender, nondistended. Bowel sounds are positive. LABORATORY DATA: BUN and creatinine 35 and 1.7. White count 3.9, hemoglobin and hematocrit 12 and 38, platelets of 73,000. Plain films were negative. 1. Briefly right osteomyelitis. Appreciate Dr. Freeman' input. He is on Levaquin and doxycycline. We will continue to monitor. 2. Encephalopathy. Appears to be overall improving. Repeat urine drug screen did not have methadone. He has kind of been off all his pain medications so, I will start some low-dose Percocet just because I do not want him to go through withdrawal and we will follow clinically. I am going to drop down his dose of Xanax too to avoid over-sedation. 3. Hypoxia. I am going to hold his fluids and we will check a chest x-ray and monitor closely. 4. Chronic renal failure. Appears to be stable. Continue to monitor. 5. Cholelithiasis. Again scans did not show cholecystitis so we are monitoring that but will likely pursue workup as an outpatient. 6. Disposition. Monitor in the ICU another 24 hours and follow clinically. cc: Joshua Lanza MD
[2017-04-07 13:25] LABS: BE -1.5 mmoll (-3.0-3.0); BLOOD TYPE ARTERIAL; DRAW SITE L BRACHIAL; METHB 0.9 % (0.0-1.5); O2(CT) 17.1 mL/dL (15.0-23.0); PCO2(98.6) 41 mmHg (35-45); PO2(98.6) 66 mmHg (60-100); SAMPLE BLOOD; SAO2 94.4 % (95.0-100.0); THB 13.2 g/dL (11.5-17.4); pH(98.6) 7.37 (7.35-7.45)
[2017-04-07 13:28] LABS: ALLEN TEST YES; MODALITY CANNULA
--- NOTE | 2017-04-07 17:37 | Diag Imaging Result Doc PS360 ---
CHEST-PORTABLE - 04/07/2017 INDICATION: dyspnea TECHNIQUE: COMPARISON: 04/01/2017 FINDINGS: Lung volumes are severely low with central and bibasilar crowding/atelectasis. There are probably no infiltrates. There is a right PICC line with the catheter tip at the subclavian vein, near the brachiocephalic vein. Heart size is grossly normal. IMPRESSION: Severely low lung volumes. Probably no infiltrates. Electronically signed by Nas Armendariz 04/07/2017 5:35 PM
[2017-04-07] MEDS: LEVAQUIN PO SCH (19:59)
[2017-04-07] MEDS: XANAX PO SCH (20:01)
[2017-04-08] MEDS: DILAUDID IV PRN ×3 (03:00→23:26)
[2017-04-08] MEDS: HUMULIN R DOSE (PARKWAY) SUBQ SCH ×4 (07:11→21:43)
[2017-04-08] MEDS ORDERED: SODIUM CHLORIDE 0.9% INJ PRN (07:50)
[2017-04-08] MEDS ORDERED: NEOSPORIN OINTMENT PACKET TOP SCH (08:00)
[2017-04-08 08:21] LABS: CALCIUM 8.7 mg/dL (8.8-10.2); MAGNESIUM 1.8 mg/dL (1.5-2.7); POTASSIUM 4.2 mmol/L (3.5-5.1)
[2017-04-08] MEDS ORDERED: CATHFLO IV PRN (08:22)
[2017-04-08 08:31] LABS: HEMATOCRIT 38.8 % (42.0-52.0); HEMOGLOBIN 12.6 g/dL (14.0-18.0); MCH 31.3 PG (27-31); MCHC 32.5 g/dL (33-37); MCV 96.5 FL (81-99); MPV 13.3 FL (7.4-10.4); RBC 4.02 XMIL (4.7-6.1)
[2017-04-08] MEDS: DOXYCYCLINE PO SCH ×2 (08:31→20:04)
[2017-04-08] MEDS: LOPRESSOR PO SCH ×2 (08:31→20:05)
[2017-04-08] MEDS: PRINIVIL PO SCH (08:31)
[2017-04-08] MEDS: PERCOCET-10 PO PRN (11:57)
[2017-04-08] MEDS: SANTYL OINT TOP SCH (12:05)
[2017-04-08] MEDS ORDERED: ZYPREXA ZYDIS PO PRN (12:16)
[2017-04-08] MEDS ORDERED: RELISTOR SUBQ ONE (12:24)
[2017-04-08] MEDS: OXYCONTIN PO SCH (13:11)
[2017-04-08] MEDS: MIRALAX PO SCH (13:12)
[2017-04-08] MEDS: ZOSYN 2.25 GM/NS 2.25 GM/50 ML IVPB IV SCH ×2 (13:13→19:52)
--- NOTE | 2017-04-08 13:52 | PROGRESS NOTE ---
DATE: 04/08/2017 SUBJECTIVE: Apparently, patient much more confused. Today still having pain in his foot. OBJECTIVE: Vital signs: Blood pressure 165/115, heart rate 92, respiratory 15, temperature 97.6 degrees, 100% on 2 L. Cardiovascular: Regular rate and rhythm. Pulmonary: Bilateral breath sounds. Clear to auscultation. GI: Was soft, nontender, nondistended. Bowel sounds are positive. LABORATORY DATA: White count is normal 4, hemoglobin and hematocrit 12 and 38, platelets of 83,000. BUN and creatinine of 27 and 1.5. Calcium 8.7. Micro is so far no growth from urine, blood from the 25th. His chest x-ray showed no significant issues except for low lung volumes. PROBLEM LIST: 1. Encephalopathy likely multifactorial. I am going to stop his Levaquin just because I have seen that cause confusion briefly in other patients. Will switch him to Zosyn just to cover for gram negative associated with his foot and I am going to resume low-dose OxyContin just to prevent withdrawal issues. The Percocet he has been getting has not been enough. 2. Chronic renal failure. Appears to be stable. 3. Right toe osteomyelitis. Apparently he has been getting antibiotics now. The culture I am getting is from 2013 so I am not sure how accurate that is to his current issues. He is on doxycycline. I am going to add like I said Zosyn and will follow clinically. 4. Cholelithiasis. We will continue to monitor. No active cholecystitis. DISPOSITION: Pending multiple other issues. We will add Zyprexa at night for help with sleep and agitation and repeat his head CT, see if there is any other processes going on from that standpoint. cc: Joshua Lanza MD
[2017-04-08] MEDS ORDERED: HALDOL IV ONE (19:22)
[2017-04-08] MEDS: ATIVAN IV PRN (19:56)
[2017-04-08] MEDS: XANAX PO SCH (20:04)
[2017-04-08] MEDS ORDERED: ZYPREXA ZYDIS PO SCH (21:00)
--- NOTE | 2017-04-08 21:42 | Diag Imaging Result Doc PS360 ---
EXAM: HEAD W/O CONTRAST HISTORY: encephalopathy TECHNIQUE: Dose reduction protocol COMPARISON: 04/05/2017 FINDINGS: There is significant motion on each sequence. No hemorrhage identified. No midline shift. No hydrocephalus. No definite change compared to the multiple recent exams. IMPRESSION: Stable exam. Electronically signed by Severo Cherry 04/08/2017 9:40 PM
[2017-04-09] MEDS: OXYCONTIN PO SCH ×3 (00:39→20:27)
[2017-04-09] MEDS: ZOSYN 2.25 GM/NS 2.25 GM/50 ML IVPB IV SCH ×4 (00:50→19:02)
[2017-04-09 05:00] LABS: HEMATOCRIT 35.1 % (42.0-52.0); HEMOGLOBIN 11.5 g/dL (14.0-18.0); MCH 31.5 PG (27-31); MCHC 32.8 g/dL (33-37); MCV 96.2 FL (81-99); MPV 12.8 FL (7.4-10.4); RBC 3.65 XMIL (4.7-6.1)
[2017-04-09 05:14] LABS: CALCIUM 8.6 mg/dL (8.8-10.2); POTASSIUM 4.2 mmol/L (3.5-5.1)
[2017-04-09] MEDS: SANTYL OINT TOP SCH ×2 (06:43→08:07)
[2017-04-09] MEDS: HUMULIN R DOSE (PARKWAY) SUBQ SCH ×4 (06:51→20:58)
[2017-04-09] MEDS: DOXYCYCLINE PO SCH (08:59)
[2017-04-09] MEDS: MIRALAX PO SCH (08:59)
[2017-04-09] MEDS: LOPRESSOR PO SCH ×2 (08:59→20:26)
[2017-04-09] MEDS: PRINIVIL PO SCH (08:59)
[2017-04-09 09:13] LABS: ALBUMIN 3.1 g/dL (3.5-5.0); DIRECT BILIRUBIN 0.3 mg/dL (0.00-0.20); TOTAL BILIRUBIN 0.8 mg/dL (0.20-1.00); TOTAL PROTEIN 5.5 g/dL (6.3-8.3)
[2017-04-09] MEDS: ATIVAN IV PRN (09:26)
[2017-04-09] MEDS: HALDOL IV PRN (12:52)
[2017-04-09] MEDS ORDERED: OXYCONTIN PO ONE (13:11)
[2017-04-09] MEDS ORDERED: RISPERDAL M-TAB PO SCH (13:15)
--- NOTE | 2017-04-09 13:56 | PROGRESS NOTE ---
DATE: 04/09/2017 SUBJECTIVE: Patient is still very confused. If anything, he is more agitated today. Different stimuli makes things worse. OBJECTIVE: Vital Signs: Blood pressure 121/89, heart rate of 80, respiratory rate of 15, temperature 97.9 degrees, 100% on 2 L. Cardiovascular: Regular rate and rhythm. Pulmonary: Bilateral breath sounds. Clear to auscultation. GI: Soft, nontender, nondistended. Bowel sounds are positive. LABORATORY DATA: Hemoglobin and hematocrit 11 and 35, platelets 76,000, white count 4.4. BUN and creatinine 24 and 1.6. Sugars have been 140. AST and ALT are up at 71 and 123, with a normal T bilirubin, albumin 3.1. PROBLEM LIST: 1. Acute encephalopathy, unclear. I do not feel this is ischemic disease. I think there may be a strong component of withdrawal because he had been off his medications, but he got confused before he was on his medications, so I am unclear what is inciting this particular incident. However I am going to continue on his OxyContin. He has been on I think at least 40 q.12h if not up to 60 q.12 since January. So this is a longstanding medication for him. 2. Left great toe osteo. We will continue, he is on Zosyn and doxycycline. I am going to switch it to IV because he has been intermittent when he takes his medications. I appreciate it is absorbed effective orally, but it is not absorbed effective orally if he is not actually taking the medicine p.o., and I think he refused his medications yesterday. 3. Diabetes. Appears to be fairly well controlled. We will continue to monitor. 4. Constipation. We will continue bowel regimen. 5. Hypertension. Continue his regular medications. DISPOSITION: Pending mental status improvement. I will try to get a neurologic opinion as soon as it is available to evaluate for other etiologies and follow clinically. cc: Joshua Lanza MD
[2017-04-09] MEDS: CATAPRES PO PRN (16:44)
[2017-04-09 18:44] LABS: BE 2.8 mmoll (-3.0-3.0); BLOOD TYPE ARTERIAL; PCO2(98.6) 47 mmHg (35-45); PO2(98.6) 113 mmHg (60-100); SAMPLE BLOOD; SAO2 98.2 % (95.0-100.0); THB 12.5 g/dL (11.5-17.4); pH(98.6) 7.39 (7.35-7.45)
[2017-04-09 18:51] LABS: MODALITY CANNULA
[2017-04-09 18:52] LABS: ALLEN TEST YES; DRAW SITE L BRACHIAL
[2017-04-09 20:23] LABS: INR 1.26 (0.86-1.15); PROTIME 16.1 Seconds (12.1-15.5)
[2017-04-09 20:24] LABS: PTT PL 28.4 Seconds (22.6-43.9)
[2017-04-09] MEDS: LASIX IV SCH (20:24)
[2017-04-09] MEDS: DOXYCYCLINE 100 MG in NS 250 ML IV SCH (20:25)
[2017-04-09] MEDS: XANAX PO SCH (20:27)
--- NOTE | 2017-04-09 20:33 | Diag Imaging Result Doc PS360 ---
EXAM: CHEST-PORTABLE HISTORY: hypoxia TECHNIQUE: COMPARISON: 04/07/2017 FINDINGS: Poor inspiratory effort. Heart is mildly prominent. Bilateral atelectasis. No consolidation. No pleural effusions identified. IMPRESSION: Poor inspiratory effort. Follow-up PA and lateral recommended. Electronically signed by Severo Cherry 04/09/2017 8:31 PM
[2017-04-10] MEDS: ZOSYN 2.25 GM/NS 2.25 GM/50 ML IVPB IV SCH ×4 (01:25→17:57)
--- NOTE | 2017-04-10 05:54 | PROGRESS NOTE ---
DATE: 04/10/2017 SUBJECTIVE: The patient is still somewhat altered. Per the nursing staff, no complaints of abdominal pain. He has had a repeat CT scan that was normal and neurology consult is pending. OBJECTIVE: Vital Signs: Patient is currently afebrile. His vital signs are stable. General Examination: No acute distress. -C[place] male, looks stated age. HEENT: Normocephalic, atraumatic. Pupils equal, round, and react to light. Mucous membranes are moist. Oropharynx benign. Neck: Supple. Trachea midline. Cardiovascular: Regular rate and rhythm. Lungs: Grossly clear. Abdomen: Soft, nontender, nondistended. Difficult exam given patient's altered mental status. Extremities: Moves all extremities. Wounds to the extremity are stable. Neurologic: Still somewhat difficult to arouse but arousable. Opens his eyes. Does not speak. Labs: Currently pending. ASSESSMENT/PLAN: A 61-year-old, male with altered mental status and cholelithiasis. 1. Altered mental status. At this time, he has had 2 CT scans that are stable. He is to be evaluated by neurology today. We will continue to monitor him. 2. Multiple medical comorbidities, currently being managed by the hospitalist service. 3. Cholelithiasis. At this time, I do not suspect the patient has cholecystitis. Would like to have his altered mental status improve before considering surgical intervention. cc: Chavez Callejas MD
[2017-04-10] MEDS: HUMULIN R DOSE (PARKWAY) SUBQ SCH ×4 (06:41→20:59)
--- NOTE | 2017-04-10 07:39 | CONSULTATION ---
DATE OF CONSULTATION: 04/10/2017 REASON FOR CONSULTATION: Mr. Hylton is 61 years old and he was admitted 7 days ago with report of syncopal episode on the night prior to admission. In the hospital, he was reported to have no focal neurologic findings on admission, to be awake and alert, answering questions appropriately. Initial noncontrast CT of the head showed old white matter changes, but nothing acute. There was reported to be evidence of chronic lacunar infarctions in the marybeth. He was reported to be confused a few days after admission, disoriented, constantly moving with features consistent with delirium. He was noted to be more alert, oriented the next day, drowsy the next day, and then "much more confused" [address] of the head was repeated 2 days ago and showed nothing new, nothing changed compared to initial exam several days earlier. He has been afebrile throughout this admission. In recent days, blood pressures have ranged systolics 110s to 160s. Heart rate has ranged 70s to 100. Lab shows mild anemia. Chemistry has shown elevated liver enzymes on admission , gradually declining, almost back to normal now. There are some other metabolic findings which appear unremarkable. BUN was mildly elevated but has trended downward. Blood sugars have been moderately elevated but nothing marked. Drug screen 04/05/17, 2 days after admission, was positive for oxycodone, methadone, benzodiazepines. A drug screen was then performed on urine collected on the day of admission and that was negative for methadone, positive for benzodiazepines and for oxycodone. He had been to the emergency room a few days before admission and urine drug screen then was also negative for methadone. Home medicine list is reported to include alprazolam and oxycodone but not methadone. He has not been given methadone by hospital personnel this admission. PAST HISTORY: Is remarkable for diabetes mellitus, osteomyelitis with left toe gangrene, hypertension, depression, heart failure, peripheral neuropathy. There is reported to be childhood history of seizures and I do not have detailed history of that problem. PHYSICAL EXAMINATION: On exam now, Mr. Hylton is supine, asleep, easily awakened and he remained mostly attentive during the time that I spoke to him directly. When not directly engaged in conversation, he seemed to drift to sleep. He answered to his name. He told me his name. He told me he did not know the day of the week or the name of this facility. He did not name the President or discuss recent news when asked. He followed simple commands consistently well. He moves all limbs spontaneously. Tone is equal in the limbs. He has good wildlife photographer power bilaterally. He was initially restrained at the wrists and ankles bilaterally. He has full lateral eye movement spontaneously and with head turning. He was inconsistent with attention but was able to count fingers correctly in the left and right visual guthrie. Tongue is midline. Facial motility is symmetric. Head is unremarkable. Neck is supple. He has typical stocking pattern of sensory loss. There is ankle areflexia. Plantar response is silent bilaterally. IMPRESSION: Global encephalopathy, uncertain etiology. He has some minor metabolic findings but nothing that generally would be associated with encephalopathy. His initial moderately elevated liver enzymes have been much improved since admission. There is urine toxicology evidence of illicit drug use while in the hospital. That raises the possibility that he may have been taking his prescribed medicines incorrectly prior to admission and he may have used other substances prior to admission. The childhood seizure disorder history is noted but I do not have details. There is not report that he ever had recognized unconsciousness or shawn seizure-like activity during this admission. We can plan EEG when practical. I do not think we need further brain imaging now. I do not see evidence of increased intracranial pressure or ALUMINUM POLISHER infection. He has risk factors for cerebrovascular ischemic problems including CT evidence of pontine infarctions and typical cerebral white matter changes, but nothing about his current appearance or recent history suggests an acute ischemic ALUMINUM POLISHER event. I would continue treating his medical problems aggressively as you are doing, plan EEG, follow clinically and I hope he will improve. I agree with the attending hospitalist' s notes that there may have been delirium and possible drug related encephalopathy. Thanks for asking me to see Mr. Hylton. cc: MD MULUGETA Johnson III
[2017-04-10 08:29] LABS: HEMOGLOBIN 13.5 g/dL (14.0-18.0); MCH 31.1 PG (27-31); MCHC 32.1 g/dL (33-37); MCV 96.8 FL (81-99); MPV 12.6 FL (7.4-10.4); RBC 4.34 XMIL (4.7-6.1)
[2017-04-10 08:55] LABS: ALBUMIN 3.1 g/dL (3.5-5.0); CALCIUM 9.2 mg/dL (8.8-10.2); POTASSIUM 3.9 mmol/L (3.5-5.1); TOTAL BILIRUBIN 1.1 mg/dL (0.20-1.00); TOTAL PROTEIN 6.3 g/dL (6.3-8.3)
[2017-04-10] MEDS: DOXYCYCLINE 100 MG in NS 250 ML IV SCH ×2 (09:22→20:07)
[2017-04-10] MEDS: LASIX IV SCH ×2 (09:22→20:04)
[2017-04-10] MEDS: LOPRESSOR PO SCH ×2 (09:23→20:06)
[2017-04-10] MEDS: OXYCONTIN PO SCH ×2 (09:23→20:04)
[2017-04-10] MEDS: PRINIVIL PO SCH (09:23)
[2017-04-10] MEDS: MIRALAX PO SCH (09:23)
[2017-04-10] MEDS: SANTYL OINT TOP SCH (09:24)
--- NOTE | 2017-04-10 10:40 | PROGRESS NOTE ---
DATE: 04/10/2017 SUBJECTIVE: The patient is still confused, but is doing okay otherwise. No major issues overnight. OBJECTIVE: Vital Signs: Blood pressure 135/91, heart rate 76, respiratory rate of 11, temperature 97.7 degrees, 100% saturation on 1 L. Cardiovascular: Regular rate and rhythm. Pulmonary: Bilateral breath sounds. Clear to auscultation. GI: Soft, nontender, nondistended. Bowel sounds are positive. Extremities: No clubbing or cyanosis. Lymphatics: No peripheral edema. Neurological: Nonfocal. PROBLEM LIST: 1. Metabolic encephalopathy. I think at this point it is a toxic encephalopathy related to infection. I appreciate Dr. Saucedo's input. There is some question that he did develop positive methadone on a urine drug screen, which I do not have a great explanation for, although I am assuming it is a false positive, but I do not have evidence. EEG has been ordered. There is no evidence of stroke, and I will continue to monitor, but I am hopeful that if we treat his candidemia fungemia that his mental status should improved. 2. Fungemia. Blood cultures this morning are positive for yeast. I do not have further data at this point, although interestingly enough, his cultures from 04/05/2017 were not positive, which is odd, but there is yeast on the blood cultures done on 04/08/2017. Will try to repeat blood cultures now, so he will need treatment. We will need to get his PICC out as it is likely the source of infection. Additionally, will need to get a substitute IV and follow. ID has been following. 3. Left toe osteomyelitis. He is on doxycycline and Zosyn. Further measures per Dr. Freeman. Probably may be tailored down the doxycycline, it just depends on how things look I guess. 4. We will need to work on his pulmonary toilet issues with incentive spirometry. cc: Joshua Lanza MD
[2017-04-10] MEDS ORDERED: XYLOCAINE 1% INJ ONE (10:59)
[2017-04-10] MEDS: MYCAMINE 100 MG in NS 100 ML IV SCH (11:05)
[2017-04-10] MEDS ORDERED: XYLOCAINE-MPF 1% 5 ML ONE (11:14)
[2017-04-10] MEDS: ATIVAN IV PRN ×2 (15:07→20:38)
[2017-04-10] MEDS: HALDOL IV PRN ×2 (15:07→20:36)
[2017-04-10] MEDS: XANAX PO SCH (20:06)
[2017-04-10] MEDS: APRESOLINE IV PRN (20:35)
[2017-04-11] MEDS: ZOSYN 2.25 GM/NS 2.25 GM/50 ML IVPB IV SCH ×4 (00:24→18:10)
[2017-04-11] MEDS: APRESOLINE IV PRN ×2 (03:02→12:04)
[2017-04-11] MEDS: HUMULIN R DOSE (PARKWAY) SUBQ SCH ×4 (06:02→21:00)
[2017-04-11 06:58] LABS: HEMATOCRIT 45.1 % (42.0-52.0); HEMOGLOBIN 14.3 g/dL (14.0-18.0); MCH 29.9 PG (27-31); MCHC 31.7 g/dL (33-37); MCV 94.2 FL (81-99); PLT 106 X1000 (130-400); RBC 4.79 XMIL (4.7-6.1)
[2017-04-11 07:23] LABS: CALCIUM 9.7 mg/dL (8.8-10.2); POTASSIUM 3.4 mmol/L (3.5-5.1)
[2017-04-11] MEDS: MYCAMINE 100 MG in NS 100 ML IV SCH (09:18)
[2017-04-11] MEDS: MIRALAX PO SCH (09:18)
[2017-04-11] MEDS: LOPRESSOR PO SCH ×2 (09:18→20:25)
[2017-04-11] MEDS: LASIX IV SCH (09:18)
[2017-04-11] MEDS: PRINIVIL PO SCH (09:18)
[2017-04-11] MEDS: DOXYCYCLINE 100 MG in NS 250 ML IV SCH ×2 (09:19→20:26)
[2017-04-11] MEDS: SANTYL OINT TOP SCH (09:36)
[2017-04-11] MEDS: OXYCONTIN PO SCH ×2 (09:42→20:25)
--- NOTE | 2017-04-11 11:17 | PROGRESS NOTE ---
DATE: 04/11/2017 SUBJECTIVE: The patient is still confused. He looks a little lethargic this morning, but I think that may be related to some of the medications he got overnight. OBJECTIVE: Vital Signs: Blood pressure 176/99, heart rate of 82, respiratory rate 15, temperature 97.8 degrees, and 99% on 1L. Cardiovascular: Regular rate and rhythm. Pulmonary: Decreased at the bases. Gastrointestinal: Soft, nontender, and nondistended. Bowel sounds are positive. Extremities: No clubbing or cyanosis. Lymphatics: No peripheral edema. Neurological: Nonfocal. LABORATORY DATA: White count 5, hemoglobin and hematocrit 14 and 45, platelets of 106,000. Potassium 3.4, creatinine 1.5. Sugars have been fairly well controlled. PROBLEM LIST: 1. Fungemia, presumed candidemia. I am waiting on final culture results. We repeated cultures yesterday. He is on Micafungin day 2. Dr. Freeman has been consulted. I do not think he has been seen again, but he is aware of the candidemia. 2. Encephalopathy, multifactorial, still confused. I do not think he has had an ischemic event. We have done a couple of head CTs, which have been negative. EEG has been completed. I am waiting on report. Dr. Saucedo is following with us. 3. Left toe osteomyelitis. He is stable. He is on doxycycline and Zosyn. Continue that for now. 4. Chronic renal failure. Appears to be stable. His creatinine is 1.5. We will continue to monitor. 5. Congestive heart failure. Does not appear to be decompensated. I will continue his Lasix for now. 6. Diabetes. Again, appears to be well controlled. Continue regular medications and monitor. DISPOSITION: Pending resolution of his mental status. We will continue to monitor. cc: Joshua Lanza MD
[2017-04-11] MEDS: DILAUDID IV PRN (12:03)
--- NOTE | 2017-04-11 13:49 | EKG Report ---
Test Performed on : 04/11/2017 10:46:54 AM Test Reason : PVCs, Bigeminy, Trigeminy Blood Pressure : / mmHG Vent. Rate : 103 BPM Atrial Rate : 103 BPM P-R Int : 200 ms QRS Dur : 102 ms QT Int : 368 ms P-R-T Axes : 043 034 246 degrees QTc Int : 482 ms Sinus tachycardia. with frequent premature ventricular complexes. Possible Left atrial enlargement Left ventricular hypertrophy ST \T\ T wave abnormality, consider inferior ischemia ST \T\ T wave abnormality, consider anterolateral ischemia Abnormal ECG When compared with ECG of 06-APR-2017 16:30, (Unconfirmed) No significant change was found Unconfirmed Result
[2017-04-11] MEDS: XANAX PO SCH (20:25)
[2017-04-11] MEDS: SEROQUEL PO SCH (20:25)
[2017-04-12] MEDS: ZOSYN 2.25 GM/NS 2.25 GM/50 ML IVPB IV SCH ×6 (01:11→23:53)
[2017-04-12] MEDS: HUMULIN R DOSE (PARKWAY) SUBQ SCH ×4 (06:49→20:32)
[2017-04-12 07:29] LABS: HEMATOCRIT 42.8 % (42.0-52.0); HEMOGLOBIN 13.8 g/dL (14.0-18.0); MCH 30.3 PG (27-31); MCHC 32.2 g/dL (33-37); MCV 93.9 FL (81-99); MPV 11.8 FL (7.4-10.4); RBC 4.56 XMIL (4.7-6.1)
[2017-04-12 07:52] LABS: CALCIUM 8.7 mg/dL (8.8-10.2); POTASSIUM 3.2 mmol/L (3.5-5.1)
[2017-04-12] MEDS ORDERED: LASIX IV SCH (09:00)
[2017-04-12] MEDS: LOPRESSOR PO SCH ×2 (09:58→20:44)
[2017-04-12] MEDS: PRINIVIL PO SCH (09:58)
[2017-04-12] MEDS: OXYCONTIN PO SCH ×2 (09:58→20:45)
[2017-04-12] MEDS: MIRALAX PO SCH (09:58)
[2017-04-12] MEDS: DOXYCYCLINE 100 MG in NS 250 ML IV SCH ×2 (09:59→20:46)
[2017-04-12] MEDS: SANTYL OINT TOP SCH (09:59)
[2017-04-12] MEDS: MYCAMINE 100 MG in NS 100 ML IV SCH (09:59)
--- NOTE | 2017-04-12 13:19 | PROGRESS NOTE ---
DATE: 04/12/2017 SUBJECTIVE: The patient has no focal complaints. He is much more alert today. He did have an episode agitation and confusion, but was actually able to be controlled without IM medications last night. He is more oriented today. He follows commands. He says he knows he is at [facility]. Improvement, overall, in mental status. OBJECTIVE: Blood pressure 134/81, heart rate 96, respiratory rate 14, temperature 97.5 degrees, and 99% on 1L.Cardiovascular: Regular rate and rhythm. Pulmonary: Bilateral breath sounds. Clear to auscultation. Gastrointestinal: Soft, nontender, nondistended. Bowel sounds are positive. LABORATORY DATA: White count 7, hemoglobin and hematocrit 13 and 42, platelets 127,000. Chemistries: A 3.2 potassium, BUN and creatinine of 24 and 1.8. PROBLEM LIST: 1. Fungemia. Still waiting on blood culture results. Repeat blood cultures are negative. 2. Osteomyelitis. He is getting Zosyn and doxycycline, and we are following. 3. Encephalopathy. This seems to be resolving. 4. Chronic renal failure with an acute injury. Appears to be doing okay from that standpoint. Will continue his medications and monitor. DISPOSITION: If his mental status continues to improve, I think he could possibly go to the floor tomorrow, but we will follow and progress with PT. cc: Joshua Lanza MD
--- NOTE | 2017-04-12 13:27 | ECHO REPORT ---
ORDER DATE: 04/10/2017 ECHOCARDIOGRAPHIC MEASUREMENTS: 1. Interventricular septum 1.4. 2. Left ventricular posterior wall 1.4. 3. Diastolic diameter 5.6. 4. Left atrium 4.5. 5. Aorta 3.8. SUMMARY OF 2-DIMENSIONAL IMAGIN. Normal left ventricular cavity size. Mild left ventricular hypertrophy. Estimated ejection fraction of 25% to 30%. There is severe global hypokinesis. 2. Aortic valve leaflets are trileaflet. Mitral valve was normal. Tricuspid valve was normal. 3. Aortic valve leaflets were trileaflet. 4. Doppler studies revealed mild mitral regurgitation. Peak velocity across the aortic valve was less than 2 m/sec. There is no aortic stenosis or regurgitation. There is mild tricuspid regurgitation. Peak velocity across the tricuspid valve less than 2 m/sec. 5. There is a thrombus noted in the left ventricle. 6. There is no pericardial effusion. 7. Would recommend Definity to assess and better evaluate for the thrombus. cc: MD Joshua Rosenberg MD
[2017-04-12] MEDS: SEROQUEL PO SCH (20:44)
[2017-04-12] MEDS: XANAX PO SCH (20:44)
[2017-04-13] MEDS: HUMULIN R DOSE (PARKWAY) SUBQ SCH ×4 (06:14→21:08)
[2017-04-13] MEDS: ZOSYN 2.25 GM/NS 2.25 GM/50 ML IVPB IV SCH ×4 (06:19→23:31)
[2017-04-13 06:20] LABS: HEMATOCRIT 39.9 % (42.0-52.0); HEMOGLOBIN 12.9 g/dL (14.0-18.0); MCH 30.6 PG (27-31); MCHC 32.3 g/dL (33-37); MCV 94.5 FL (81-99); MPV 12.5 FL (7.4-10.4); RBC 4.22 XMIL (4.7-6.1)
[2017-04-13 06:38] LABS: CALCIUM 8.1 mg/dL (8.8-10.2); POTASSIUM 3.4 mmol/L (3.5-5.1)
[2017-04-13] MEDS: PRINIVIL PO SCH (08:28)
[2017-04-13] MEDS: LOPRESSOR PO SCH ×2 (08:28→21:14)
[2017-04-13] MEDS: DOXYCYCLINE 100 MG in NS 250 ML IV SCH ×2 (08:28→21:14)
[2017-04-13] MEDS: SANTYL OINT TOP SCH (08:29)
[2017-04-13] MEDS: OXYCONTIN PO SCH ×2 (08:29→21:13)
[2017-04-13] MEDS: MIRALAX PO SCH (08:29)
[2017-04-13] MEDS: DILAUDID IV PRN (09:57)
[2017-04-13] MEDS: MYCAMINE 100 MG in NS 100 ML IV SCH (10:01)
[2017-04-13] MEDS: TYLENOL PO PRN (11:27)
--- NOTE | 2017-04-13 13:43 | CONSULTATION ---
DATE OF CONSULTATION: 04/13/2017 CHIEF COMPLAINT: Syncope. REASON FOR CONSULTATION: Abnormal echo, syncope, and cardiomyopathy. HISTORY OF PRESENT ILLNESS: Mr. Hylton is a pleasant 61-year-old black gentleman who is known to Dr. Devin Nuñez's office. He presented for admission to the hospital this time on 04/03/2017 because he was coming for infusion therapies and he had become increasingly weak and was very unsteady on his feet and he fell and basically it looked like he did suffer a syncopal episode. The patient was admitted to the hospital under the Hospitalist Service and he has been getting treatment for a case of osteomyelitis. On his recent blood cultures from 2016 they are growing theo parapsilosis and antifungal therapy has been started in addition to piperacillin/tazobactam 2.25 g every 6 hours. He is getting micafungin 100 mg every 24 hours. The patient apparently has improved his mental status. Compared to admission he is more awake and he is more aware of what is going on around him. He is not having any specific chest pain at this time. He is not having any dyspnea. He has no significant pain in the legs. No abdominal pain. He is lying in bed comfortably eating his lunch and talking to his daughter. PAST MEDICAL HISTORY: His past history is positive for a nonischemic cardiomyopathy that was diagnosed about 10 years ago. Back then, [facility] and they did a stress test that showed a focal inferior defect fixed with low ejection fraction and he was referred for a coronary arteriogram which revealed normal coronary arteries. Since then he has been followed by cardiology and his primary service. He has a history of hypertension, hyperlipidemia, and type 2 diabetes mellitus. He does have chronic kidney disease, gastric reflux, history of seizure disorder in the past , chronic pain syndrome, and osteoarthritis. Lately he was diagnosed with osteomyelitis of the ankle and had been taking infusion therapy for it. PAST SURGICAL HISTORY: He has had shoulder and arm surgeries as well as leg surgery. SOCIAL HISTORY: He is living by himself on disability. He has children. FAMILY HISTORY: A brother had coronary bypass. ALLERGIES: Negative. HOME MEDICATION: His home medications included metoprolol 25 mg twice a day, albuterol as needed, cyclobenzaprine 10 mg twice a day, Xanax 1 mg at bedtime, and oxycodone 60 mg daily. REVIEW OF SYSTEMS: Lately he has been very limited to perform physical actions because of his infected toe. He has been admitted to the hospital on several occasions because of a diabetic foot ulcer and especially the left great toe has been affected by it. He has not had any episode of palpitations or syncope at home prior to this particular incident. PHYSICAL EXAMINATION: VITAL SIGNS: Blood pressure is 114/79, temperature 97.7, pulse 88, and respirations 18. GENERAL: He is awake, alert, and in a good mood. HEENT: Unremarkable. NECK: The neck veins are not distended. RESPIRATORY: The chest shows diminished breath sounds at the bases. No rales are noted. CARDIOVASCULAR: Heart sounds are irregularly, occasional extrasystole. I do not her any gallop. ABDOMEN: Nontender. No masses or hepatomegaly. EXTREMITIES: The extremities show decreased pulses bilaterally. He has ulcers on the ankles that are covered by dressings. NEUROLOGICAL: He follows commands and moves all extremities. He has some sensorial laxity in the lower extremities. A 12 lead EKG showed sinus tachycardia, left ventricular hypertrophy, PACs, and diffuse ST-T abnormality. Chest x-ray done at the time of recent admission shows poor inspiratory effort. The heart is mildly prominent. Bilateral atelectasis. No consolidation. A 2D echocardiogram was done on April 10 and it showed a decreased ejection fraction and a questionable thrombus in the apex of the left ventricle. They did a follow-up study today with injection of Definity and it does not show any thrombus. His ejection fraction is probably not much different than what it was about a year ago. IMPRESSION: 1. Patient who presented with syncope apparently in the midst of having an infected ulcer in the toe with sepsis or septicemia with isolation of theo parapsilosis and gram -negative rods in the blood. This wound indicate fungemia. 2. History of long-term nonischemic cardiomyopathy with ejection fraction in the mid 30's. 3. Abnormal echocardiogram probably mostly related to poor acoustic windows. There is no definite indication of thrombus on contrasted study. 4. Chronic kidney disease. 5. History of hypertension. 6. Long-term history of diabetes mellitus with neuropathy. RECOMMENDATIONS: From a Cardiology viewpoint, at this time I do not have any specific suggestions. There is no indication that he has endocarditis. However, I would certainly consider at some point offering an outpatient transesophageal echocardiogram, particularly if his fungemia does not resolve. On the review of the 2 recently performed transthoracic echoes I did not see any suspicious shadow at the level of the tricuspid or pulmonic valves that would most likely affect the valves by fungemia. We will be very happy to reassess him down the road. Please call us if further assistance is needed. At this point in time his cardiac status in my opinion has not changed when compared to all the imaging studies that we have since 2006. cc: Hipolito Lim MD MTDD
--- NOTE | 2017-04-13 14:42 | EEG REPORT ---
DATE: 04/10/2017 BASIC INFORMATION: Referring physician: Dr. Saucedo. Golf Instructor: Otoniel Diaz. BACKGROUND INFORMATION: TECHNIQUE: A digitally recorded EEG is obtained with an additional channel for EKG. HISTORY OF PRESENT ILLNESS: This is a 61-year-old male with altered mental status and recent syncope. There is a history potentially of childhood seizures. An EEG is obtained to evaluate for possible seizures, as well as to evaluate encephalopathy. Medications: Notable for Xanax and OxyContin. EEG FINDINGS: A posterior dominant alpha rhythm is notably absent. The background consists of 6- 7 hertz theta frequencies. There are some admixed faster frequencies. There is no focal slowing. There are no epileptiform discharges. There are no seizures. Hyperventilation was not performed. Photic stimulation did not induce a driving response. The patient becomes drowsy near the end of the study, but stage II sleep is not seen. The EKG reveals an irregular R-to-R interval. IMPRESSION AND CLINICAL CORRELATION: Abnormal routine EEG in the awake and drowsy states due to: 1. Mild diffuse generalized slowing indicative of a mild encephalopathy. Generalized slowing is a nonspecific finding that can be seen in processes that diffusely affect the cerebrum, including toxic metabolic, post hypoxic and infectious etiologies. 2. Irregular R-R interval on the EKG. Clinical correlation is advised. No epileptiform abnormalities and no seizures are noted on this study. This does not rule out an underlying seizure disorder. cc: MD Duyen Gonzalez III, MD MTDD
--- NOTE | 2017-04-13 14:42 | Diag Imaging Result Doc PS360 ---
MRI BRAIN W/O CONTRAST - 04/13/2017 INDICATION: encephalopathy COMPARISON: 04/08/2017 FINDINGS: The exam was very challenging with extensive patient motion artifact. There is no large area of restricted diffusion. There is moderate periventricular white matter hyperintensity, also involving the white matter of the marybeth. The appearance is most consistent with chronic microvascular disease. No significant intracranial mass or hemorrhage. IMPRESSION: Advanced chronic microvascular disease of cerebral and brainstem white matter. No acute or suspicious abnormality. Electronically signed by Nas Armendariz 04/13/2017 2:39 PM
--- NOTE | 2017-04-13 15:47 | PROGRESS NOTE ---
DATE: 04/13/2017 SUBJECTIVE: Patient more awake, alert this morning. Still somewhat confused. He kind of had anxiety episode this morning but he seems to be doing okay. OBJECTIVE: Vital signs: Blood pressure 105/76, heart rate of 86, respiratory of 11, temperature 99.4 degrees. Cardiovascular: Regular rate and rhythm. Pulmonary: Bilateral breath sounds. Clear to auscultation. GI: Soft, nontender, nondistended. Bowel sounds are positive. Extremities: No clubbing or cyanosis. Lymphatics: No peripheral edema. Neurological: Nonfocal. LABORATORY DATA: White count normal, hemoglobin and hematocrit 12 and 39, platelets 115,000. Chemistries look okay. Potassium 3.4, creatinine 1.9. Repeat blood cultures are negative except he has Gina parapsilosis actually grew out of his foot and then also out of the blood culture which also growing gram-negative goldie interestingly enough but I do not have final identification on that. In any case, clinically patient is improving. Repeat blood cultures are negative. PROBLEMS: 1. Candidemia. We will continue micafungin. He is clinically improving. 2. Osteo. Will continue Zosyn . Waiting on final identification and gram-negative goldie. 3. Congestive heart failure appears to be stable. There was some concern over possible left ventricular thrombus and cardiology was consulted. However repeat echocardiogram did not validate this. At this point, since he is clinically improved I would consider he does not need KE but we will follow. 4. Hypertension. Appears to be stable. 5. Disposition. The patient is clinically improving. We may be able to move him out to the floor tomorrow and start working more aggressively with physical therapy. Will continue to follow. cc: Joshua Lanza MD
--- NOTE | 2017-04-13 17:53 | ECHO REPORT ---
ORDER DATE: 04/13/2017 SUMMARY: Limited 2 dimensional echocardiography performed with administration of intravenous echo contrast agent Definity. Study focused on left ventricle and possibility of left ventricular thrombus. DIAGNOSES: MEASUREMENTS: Interventricular septum: Left ventricle posterior wall: Left ventricle end-diastolic diameter: Left ventricle end-systolic diameter: Left atrium: Aortic root diameter: Mean right ventricle end-diastolic dimension: FINDINGS: 1. Left ventricular chamber size and wall thickness appear grossly normal with estimated left ejection fraction of 25% to 30% in the setting of global hypokinesis. 2. Following the administration of intravenous echo contrast agent Definity, opacification of the entire left ventricle appears to be complete with no evidence of left ventricular thrombus. CONCLUSIONS: No evidence of left ventricular thrombus in left ventricle following administration of intravenous echo contrast agent Definity. cc: MD Joshua Dowd MD
[2017-04-13] MEDS: SEROQUEL PO SCH (21:13)
[2017-04-13] MEDS: XANAX PO SCH (21:13)
[2017-04-14 05:54] LABS: HEMATOCRIT 40.1 % (42.0-52.0); HEMOGLOBIN 12.8 g/dL (14.0-18.0); MCH 30.3 PG (27-31); MCHC 31.9 g/dL (33-37); MPV 12.8 FL (7.4-10.4); RBC 4.22 XMIL (4.7-6.1)
[2017-04-14] MEDS: ZOSYN 2.25 GM/NS 2.25 GM/50 ML IVPB IV SCH ×3 (06:13→17:56)
[2017-04-14 06:14] LABS: CALCIUM 8.2 mg/dL (8.8-10.2); POTASSIUM 3.5 mmol/L (3.5-5.1)
[2017-04-14] MEDS: HUMULIN R DOSE (PARKWAY) SUBQ SCH ×4 (06:15→20:34)
[2017-04-14] MEDS: DOXYCYCLINE 100 MG in NS 250 ML IV SCH ×2 (09:47→20:43)
[2017-04-14] MEDS: MIRALAX PO SCH (09:47)
[2017-04-14] MEDS: MYCAMINE 100 MG in NS 100 ML IV SCH (09:47)
[2017-04-14] MEDS: OXYCONTIN PO SCH ×2 (09:47→20:44)
[2017-04-14] MEDS: SANTYL OINT TOP SCH (09:48)
[2017-04-14] MEDS: TYLENOL PO PRN ×2 (09:48→16:37)
[2017-04-14] MEDS: PRINIVIL PO SCH (09:48)
[2017-04-14] MEDS: LOPRESSOR PO SCH ×2 (09:48→20:44)
[2017-04-14] MEDS ORDERED: NS 1,000 ML IV SCH (10:28)
[2017-04-14] MEDS: DILAUDID IV PRN (12:15)
--- NOTE | 2017-04-14 12:47 | PROGRESS NOTE ---
DATE: 04/14/2017 SUBJECTIVE: The patient has no complaints. He had another episode this morning of delirium. He was scared. He wanted to , but that has all resolved, and he does not seem to remember it at all. But, overall, he seems improved. OBJECTIVE: Blood pressure 130/77, heart rate of 88, respiratory rate of 14, temperature 98.5 degrees, 96% on 2 L. Cardiovascular: Regular rate and rhythm. Pulmonary: Bilateral breath sounds. Clear to auscultation. GI soft, nontender, nondistended. Bowel sounds are positive. LABORATORY DATA: White count 4, hemoglobin and hematocrit 12 and 40. Platelets of 115,000 which is stable. BUN and creatinine of 29 and 2. PROBLEM LIST: 1. Candidemia with parapsilosis. He is on Micafungin. This is day 5 and seems to be doing okay. He will need at least 2 weeks of antibiotics, I would say probably 2 weeks. Repeat blood cultures are negative. He had a positive blood culture for Pseudomonas though and it was also sensitive to Zosyn which he is on; so, he had Pseudomonas and I think that was a PICC line infection. In any case, he will need 2 weeks of IV antibiotics for those. Right now, repeat blood cultures are negative. We may replace his PICC line on Sunday to complete his course. 2. Acute kidney injury. He has got chronic renal failure. Hovers between 1.5 and 2. I am going to give a little bit hydration because we have been giving him diuresis. 3. Chronic heart failure appears compensated. 4. Encephalopathy. Overall, he is significantly improved. He still has some episodes but much less frequent, and he is to me clinically improved. He did have an episode. I have discussed with Dr. Freeman and Dr. Saucedo. We will consider a lumbar puncture to rule out meningitis which is unlikely, but the Micafungin may not be adequate to treat that if that is indeed the case. So, we will evaluate for that today. MRI was negative. EEG was unrevealing. No other significant metabolic encephalopathy. There was some concern over methadone ingestion but the patient is not really aware of that, and I am not sure if that was a contaminant. DISPOSITION: If he stabilizes, he could probably go to the floor here soon, pursue PT. Will continue to monitor. cc: Joshua Lanza MD
[2017-04-14 13:43] LABS: UR AMPHETAMINES QUAL NONE DETECTED (NONE DETECT); UR BARBITUATES QUAL NONE DETECTED (NONE DETECT); UR BENZODIAZEPIN QUAL PRESUMPTIVE POSITIVE (NONE DETECT); UR CANNABINOIDS QUAL NONE DETECTED (NONE DETECT); UR COCAINE QUAL NONE DETECTED (NONE DETECT); UR MDMA QUAL NONE DETECTED (NONE DETECT); UR METHADONE QUAL NONE DETECTED (NONE DETECT); UR METHAMPHETAMINE QUAL NONE DETECTED (NONE DETECT); UR OPIATES QUAL NONE DETECTED (NONE DETECT); UR OXYCODONE QUAL PRESUMPTIVE POSITIVE (NONE DETECT); UR PCP QUAL NONE DETECTED (NONE DETECT); UR TCA QUAL NONE DETECTED (NONE DETECT)
[2017-04-14 14:29] LABS: DIFF NEEDED? NO
[2017-04-14 14:46] LABS: APPEARANCE CLEAR
[2017-04-14 14:49] LABS: RBC BF 1 /cumm; WBC BF 0 /cumm
--- NOTE | 2017-04-14 14:51 | OPERATIVE NOTE ---
PROCEDURE DATE: PROCEDURE: Lumbar puncture. INDICATION: Encephalopathy, fungemia. DESCRIPTION OF PROCEDURE: Briefly patient was prepped in sterile fashion. Initially could not pass needle through intervertebral place. He had been locally anesthetized as well. We repositioned him and then needle could be passed easily. Fluid was clear with slightly xanthochromic changes. Awaiting final analysis, fluid did have some leaking around the hub of the catheter which made it difficult to get some of the fluid out but we were working on trying to get that situated. Other than that the patient tolerated procedure without difficulty. Sample sent off for analysis. cc: Joshua Lanza MD
[2017-04-14] MEDS: XANAX PO SCH (20:44)
[2017-04-14] MEDS: SEROQUEL PO SCH (20:44)
[2017-04-15] MEDS: ZOSYN 2.25 GM/NS 2.25 GM/50 ML IVPB IV SCH ×3 (01:15→14:10)
[2017-04-15] MEDS: DILAUDID IV PRN (02:40)
[2017-04-15 05:52] LABS: HEMATOCRIT 38.2 % (42.0-52.0); HEMOGLOBIN 12.1 g/dL (14.0-18.0); MCH 30.1 PG (27-31); MCHC 31.7 g/dL (33-37); MPV 12.9 FL (7.4-10.4); RBC 4.02 XMIL (4.7-6.1)
[2017-04-15] MEDS: HUMULIN R DOSE (PARKWAY) SUBQ SCH ×2 (06:06→11:28)
[2017-04-15 06:13] LABS: POTASSIUM 3.7 mmol/L (3.5-5.1)
[2017-04-15] MEDS: OXYCONTIN PO SCH ×3 (09:26→21:30)
[2017-04-15] MEDS: LOPRESSOR PO SCH ×3 (09:26→21:31)
[2017-04-15] MEDS: SANTYL OINT TOP SCH (09:27)
[2017-04-15] MEDS: MIRALAX PO SCH (09:27)
--- NOTE | 2017-04-15 10:52 | PROGRESS NOTE ---
DATE: 04/15/2017 SUBJECTIVE: Today Mr. Hylton refers to be doing fine. He seems a whole lot more alert and conversational but he is extremely tearful when he starts to talk on certain issues. OBJECTIVE: Vital signs: Blood pressure is 119/72, pulse 84, respirations 18, temperature 98.5 degrees. General: Mr. Hylton is a 61-year-old male. He is in bed, not in any distress. HEENT: Mucosa is pink and moist. Anicteric and acyanotic. Neck: Supple. Chest: Good air entry bilaterally. Few bibasilar crepitations. Cardiovascular: Regular rate and rhythm. Abdomen: Soft and nontender. : The patient has a penial implant and a Fuentes catheter in place. Extremities: No pedal edema. Patient does have an ulcer on the tip of the left big toe, on the sole part, and also an ulceration over the lateral aspect of the right ankle. Distal pulses are slightly reduced. SENIOR SPECIALIST: Patient is alert, awake, oriented. He is conversational. Follows commands. He knows where he is. He knows his name and date of . He the place where he is. Psychiatric: Patient is extremely tearful and emotional. LABORATORY DATA: WBC is 5.37, hemoglobin is 12.1, platelet count of 108,000. Chemistry: Sodium is 136, potassium is 3.7, chloride is 103, bicarb is 27, BUN is 27, creatinine is 1.9. Review of LP results yesterday, WBC 0, RBC 1, glucose is 65, total protein is 287.2. CURRENT MEDICATIONS: 1. Tylenol p.r.n. 2. Albuterol p.r.n. 3. Xanax 1 mg at bedtime. 4. Doxycycline 100 mg q.12 hourly. 5. Haldol 2 mg IV q.4 p.r.n. 6. Hydralazine p.r.n. 7. Dilaudid p.r.n. 8. Ativan. 9. Metoprolol or 25 mg b.i.d. 10. Micafungin. 11. Zosyn 2.25 q.6. 12. Quetiapine. IMAGIN. An MRI of the brain was done 3 days ago which shows advanced chronic microvascular disease of the cerebellum and brain stem white matter. No acute all suspicion of abnormality. 2. An echocardiogram done during this hospital stay shows an ejection fraction of 25 to 30% with severe global hypokinesis.. 3. A urine toxicology on presentation actually shows that he was positive for oxycodone and continues to be positive. ASSESSMENT: 1. Syncope on presentation. So far the workup has not shown anything very remarkable. However, the patient does have severe systolic dysfunction of the heart and also presented with EKG showing multifocal frequent PVCs. In this setting I suspect the patient probably had a cardiac event from an arrhythmia. This has not happened anymore but I think on the long-term patient will need to be evaluated for a AICD 2. Altered mental secondary to global encephalopathy. Mentation has improved. However, patient continues to be extremely emotional. I think he does have some severe underlying depression that has not been thoroughly evaluated which I recommend he follow up with a counsellor or a psychiatrist. He is currently on quetiapine 25 mg at bedtime. I think we will go up on the Seroquel to 50 mg at bedtime. We will also discontinue all of the other sedatives that on his medications. 3. Pseudomonas bacteremia and also candidemia. This seems to have occurred whilst patient was in hospital because blood cultures from the day of admission were completely negative. The left bid toe also has the same Gina parapsilosis. The patient is being treated adequately with the right agents. Subsequent blood culture that was done on the is no growth. Patient is being followed by ID as well. 4. Chronic kidney disease stage 3B to 4. Stable. 5. Congestive heart failure with an ejection fraction of 25 to 30%. likely due to underlying coronary artery disease. Stable. PLAN: So in general I think Mr. Hylton is doing a little better. He seems to be extremely emotional this morning. I think he does have a lot of issues at home. We are going to bump up his quetiapine. Will continue with the current antibiotic and antifungal. The patient is being followed up by multiple subspecialties. Will follow further recommendations from them. For today we will remove the Fuentes catheter, encourage him to sit up more in the bed, and get physical therapy to walk with him. I anticipate the patient being discharged soon. I think patient would eventually need to be evaluated on an outpatient basis for an ICD since he has this remarkable the low ejection fraction in the setting of syncope with frequent PVCs on his EKG. cc: Angel Alonso MD MTDD
[2017-04-15] MEDS: MYCAMINE 100 MG in NS 100 ML IV SCH (14:12)
[2017-04-15] MEDS: DOXYCYCLINE 100 MG in NS 250 ML IV SCH (15:23)
[2017-04-15] MEDS: HUMULIN R (PARKWAY) SUBQ SCH ×2 (17:37→21:30)
[2017-04-15] MEDS ORDERED: HALDOL IV ONE (19:46)
[2017-04-15] MEDS: XANAX PO SCH ×2 (20:02→21:31)
[2017-04-15] MEDS: SEROQUEL PO SCH ×2 (20:02→21:31)
[2017-04-16] MEDS ORDERED: HALDOL IV ONE (00:05)
[2017-04-16] MEDS: SEROQUEL PO SCH ×2 (00:20→20:57)
[2017-04-16] MEDS: OXYCONTIN PO SCH ×4 (00:20→21:01)
[2017-04-16] MEDS: LOPRESSOR PO SCH ×3 (00:20→20:58)
[2017-04-16] MEDS: XANAX PO SCH ×2 (00:21→20:58)
[2017-04-16] MEDS: DILAUDID IV PRN (00:27)
[2017-04-16] MEDS: ZOSYN 2.25 GM/NS 2.25 GM/50 ML IVPB IV SCH ×5 (00:28→18:32)
[2017-04-16] MEDS: DOXYCYCLINE 100 MG in NS 250 ML IV SCH ×2 (02:56→15:20)
[2017-04-16] MEDS: HUMULIN R (PARKWAY) SUBQ SCH ×4 (07:27→20:57)
[2017-04-16 07:45] LABS: BASO% 0.3 % (0.0-0.8); CALCIUM 8.4 mg/dL (8.8-10.2); EOS# 0.25 X1000 (0.0-0.7); EOS% 3.7 % (0.0-10.0); HEMATOCRIT 36.7 % (42.0-52.0); HEMOGLOBIN 11.7 g/dL (14.0-18.0); IMM GRAN# 0.01 X1000 (0.0-0.04); IMM GRAN% 0.1 % (0.0-0.5); LYMPH# 1.53 X1000 (1.2-3.4); LYMPH% 22.5 % (20.5-51.1); MANUAL DIFF NEEDED? YES; MCH 30.4 PG (27-31); MCHC 31.9 g/dL (33-37); MCV 95.3 FL (81-99); MONO# 0.77 X1000 (0.11-0.59); MONO% 11.3 % (1.7-9.3); NEUT% 62.1 % (42.2-75.2); PLT 110 X1000 (130-400); POTASSIUM 3.9 mmol/L (3.5-5.1); RBC 3.85 XMIL (4.7-6.1)
[2017-04-16 08:16] LABS: EOS 2 % (1-10); LYMPHS 34 % (21-51); MONO 2 % (1-9)
--- NOTE | 2017-04-16 08:52 | PROGRESS NOTE ---
DATE: 04/16/2017 SUBJECTIVE: The patient will not answer questions this morning. He does seem alert but will not respond. His notes that he would, at times yesterday, sit up and eat lunch, was awake and alert, and then at times would be extremely tearful and crying. PHYSICAL EXAMINATION: Vital Signs: Temperature 98, pulse 96, respiratory rate 19, BP 104/70, saturation 92-98% on room air. General: Patient is awake and alert. He is in no respiratory distress. HEENT: Normocephalic. Neck: Supple. CV: Regular rate. Chest: Clear and nonlabored. Abdomen: Soft. Extremities: Moves all extremities. Neurologic: No focal changes. ASSESSMENT: 1. Acute global encephalopathy. Of note, patient was awake, alert, and oriented when he presented to the hospital initially. Then he had what appears to be an episode of intentional drug use. He had friends in his exam room and later that night, he was disoriented and confused. Blood pressures dropped and he was moved to the intensive care unit. His drug screen then was positive whereas it was negative when he was first admitted to the hospital. Since that time, he has had infection, and currently is on Zosyn and micafungin. He still seems quite emotional and certainly may have some underlying depression. We will start him on Zoloft today and consider increasing atypicals if needed. 2. Pseudomonas bacteremia and candidemia. Most recent blood culture has been negative. Infectious disease is still following. 3. Chronic kidney disease stage IIIB-IV. 4. Congestive heart failure with an ejection fraction of 25-30%. PLAN: As noted, we will continue above. Continue doxycycline, Zosyn, and micafungin until discussed with Dr. Freeman on when to change his antibiotics. We will continue to follow. Further orders as needed. cc: Mitch Horowitz MD
[2017-04-16] MEDS: MIRALAX PO SCH (09:40)
[2017-04-16] MEDS: MYCAMINE 100 MG in NS 100 ML IV SCH ×2 (09:45→12:07)
[2017-04-16] MEDS: SANTYL OINT TOP SCH (09:50)
[2017-04-16] MEDS: ZOLOFT PO SCH (20:57)
[2017-04-17] MEDS: DOXYCYCLINE 100 MG in NS 250 ML IV SCH ×3 (01:54→20:17)
[2017-04-17] MEDS: ZOSYN 2.25 GM/NS 2.25 GM/50 ML IVPB IV SCH ×5 (01:54→20:17)
[2017-04-17] MEDS: DILAUDID IV PRN (05:26)
[2017-04-17] MEDS: HUMULIN R (PARKWAY) SUBQ SCH ×4 (06:19→21:40)
--- NOTE | 2017-04-17 08:38 | PROGRESS NOTE ---
DATE: 04/17/2017 SUBJECTIVE: Patient is noted to wake up a little bit better during the day. He was set up and ate some yesterday. This morning, he seems uninterested in answering questions. Does not open his eyes during the exam. His notes that he is overall slightly improving and that he is staying awake more during the day, slept well last night. OBJECTIVE: Temperature 97, pulse 97, respiratory 18, BP 131/70. Saturation 96% on room air. General: Patient is lying in bed flatly. He is in no respiratory distress. He does not follow commands. He does not answer questions this morning, although as noted, his notes that he was yesterday afternoon. HEENT: Normocephalic. Neck supple. CV: Regular rate. Chest: Clear and unlabored. Abdomen is soft. Extremities: Moves all extremities. Neurologic: No changes. ASSESSMENT: 1. Global encephalopathy appears improving. Patient appears to have acute delirium intermittently at this point. I started him on Zoloft yesterday. Continue Seroquel. This certainly appears more acute delirium secondary to depression at this point. Depression seems situational due to him being in the hospital. 2. Pseudomonas bacteremia and Candidemia. 3. Chronic kidney disease, stage 3b to 4. 4. Congestive heart failure with an ejection fraction of 25%-30%. PLAN: We will continue Seroquel, continue Zoloft, continue physical therapy. We will discuss with Dr. Freeman at length of time for IV antibiotics. cc: Mitch Horowitz MD
[2017-04-17] MEDS: LOPRESSOR PO SCH ×2 (09:49→20:18)
[2017-04-17] MEDS: MIRALAX PO SCH (09:49)
[2017-04-17] MEDS: OXYCONTIN PO SCH ×2 (09:49→20:17)
[2017-04-17] MEDS: SANTYL OINT TOP SCH (09:50)
--- NOTE | 2017-04-17 16:34 | Diag Imaging Result Doc PS360 ---
EXAM: Portable chest HISTORY: Central line placement TECHNIQUE: Single view COMPARISON: 04/09/2017 FINDINGS: There is a right jugular line. The tip overlies the right atrium. The lungs are poorly expanded. No pneumothorax. Infiltrates are actually less pronounced on the current exam than they were previously. No pleural effusions identified. IMPRESSION: No postprocedural pneumothorax. Electronically signed by Severo Cherry 04/17/2017 4:32 PM
--- NOTE | 2017-04-17 17:01 | OPERATIVE NOTE ---
PROCEDURE DATE: 04/17/2017 PREOPERATIVE DIAGNOSES: 1. Osteomyelitis. 2. Phlebosclerosis. POSTOPERATIVE DIAGNOSIS: 1. Osteomyelitis. 2. Phlebosclerosis. PROCEDURES: Ultrasound-guided right internal jugular vein central line placement. SURGEON: Chavez Callejas MD. INSIDE TECHNICAL SALES REPRESENTATIVE: None. ANESTHESIA: Local administered by the surgeon. INTRAOPERATIVE FINDINGS: Ultrasound showed good caliber right internal jugular vein, although it is easily collapsible and was amenable to a central line placement. BRIEF HISTORY: The patient is a 61-year-old male admitted initially for altered mental status. He was found to have osteomyelitis of his foot and is needing long-term antibiotics. It is felt that the patient would benefit from a central line needed in the inner room while he is positive for bacteremia and fungemia. It is felt the patient would benefit from a central line in the right internal jugular vein. The risks, benefits, and alternatives were discussed with the . All questions answered. DESCRIPTION OF PROCEDURE: After informed consent was obtained, patient remained in his hospital bed. The right neck was prepped and draped in sterile fashion. After a formal time-out, we used ultrasound to identify the right internal jugular vein. I used a local anesthetic to anesthetize the skin. On the 1st pass I was able to cannulate the right internal jugular vein, passed a wire easily without resistance. I was able to serially dilate in the Seldinger technique the central line and place it over a wire and secure to the skin in standard fashion. At that point, all ports aspirated and flushed blood easily. I secured it to the skin, placed a sterile dressing. The patient tolerated procedure well. At time of this dictation, a chest x-ray is pending. cc: Chavez Callejas MD
[2017-04-17] MEDS: MYCAMINE 100 MG in NS 100 ML IV SCH (17:43)
[2017-04-17] MEDS: XANAX PO SCH (20:17)
[2017-04-17] MEDS: ZOLOFT PO SCH (20:17)
[2017-04-17] MEDS: SEROQUEL PO SCH (20:17)
[2017-04-18] MEDS: ZOSYN 2.25 GM/NS 2.25 GM/50 ML IVPB IV SCH ×4 (01:10→20:32)
[2017-04-18] MEDS: HUMULIN R (PARKWAY) SUBQ SCH ×4 (06:30→22:18)
[2017-04-18 06:56] LABS: HEMOGLOBIN 11.3 g/dL (14.0-18.0); MCH 29.7 PG (27-31); MCHC 31.4 g/dL (33-37); MCV 94.7 FL (81-99); PLT 121 X1000 (130-400)
[2017-04-18 07:11] LABS: ALBUMIN 2.9 g/dL (3.5-5.0); CALCIUM 8.4 mg/dL (8.8-10.2); MAGNESIUM 1.9 mg/dL (1.5-2.7); POTASSIUM 4.2 mmol/L (3.5-5.1); TOTAL BILIRUBIN 0.8 mg/dL (0.20-1.00); TOTAL PROTEIN 6.1 g/dL (6.3-8.3)
--- NOTE | 2017-04-18 08:17 | PROGRESS NOTE ---
DATE: 04/18/2017 SUBJECTIVE: Patient is feeling better this morning. He is actually talkative and will answer questions. His family notes that he was much more awake, alert yesterday. He was eating a little bit better. He was more conversive with them. PHYSICAL: Vital Signs: Temperature 98, pulse 92, respiratory rate 16, BP 129/89, saturation 97% on room air. General: Patient is awake, alert. He is in no respiratory distress. Pleasant to talk with. Neck: Supple. CV: Regular rate. Chest: Relatively clear. Abdomen: Soft. Positive bowel sounds. Nondistended, nontender. Extremities: Moves all extremities. Neurologic: No focal changes. Skin: Warm and dry. No rashes. LABS: WBCs 4, hemoglobin and hematocrit 11 and 36. Creatinine 1.8, glucose 113, albumin 2.9. ASSESSMENT: 1. Moderate protein calorie malnutrition. 2. Chronic renal failure stable. 3. Anemia of chronic disease, stable. 4. Syncope resolved. 5. Altered mental status secondary to global encephalopathy and situational depression, improving with Zoloft and Seroquel at night. 6. Pseudomonas bacteremia and candidemia. 7. Osteomyelitis of his left foot. 8. Chronic kidney disease stage 3B. 9. Congestive heart failure with an ejection fraction of 25-30%. PLAN: Will continue patient on IV antibiotics. Dr. Callejas was consulted yesterday for IV access. He had an ultrasound-guided internal jugular vein central line placement and tolerated very well. We will continue antibiotics per Dr. Freeman. Hopefully, patient can be discharged home or to rehab first of next week. cc: Mitch Horowitz MD
[2017-04-18] MEDS: DOXYCYCLINE 100 MG in NS 250 ML IV SCH ×2 (08:51→20:41)
[2017-04-18] MEDS: OXYCONTIN PO SCH ×2 (08:51→20:31)
[2017-04-18] MEDS: MIRALAX PO SCH (08:53)
[2017-04-18] MEDS: LOPRESSOR PO SCH ×2 (08:53→20:31)
[2017-04-18] MEDS: SANTYL OINT TOP SCH (12:42)
[2017-04-18] MEDS: MYCAMINE 100 MG in NS 100 ML IV SCH (18:05)
[2017-04-18] MEDS: PRINIVIL PO SCH (20:31)
[2017-04-18] MEDS: SEROQUEL PO SCH (20:31)
[2017-04-18] MEDS: ZOLOFT PO SCH (20:31)
[2017-04-18] MEDS: XANAX PO SCH (20:31)
[2017-04-18] MEDS ORDERED: BENTYL PO ONE (20:48)
[2017-04-19] MEDS: ZOSYN 2.25 GM/NS 2.25 GM/50 ML IVPB IV SCH ×4 (03:10→22:05)
[2017-04-19] MEDS: HUMULIN R (PARKWAY) SUBQ SCH ×4 (06:16→22:20)
--- NOTE | 2017-04-19 07:59 | PROGRESS NOTE ---
DATE: 04/19/2017 SUBJECTIVE: Patient is much more awake and alert this morning. He is complaining of abdominal pain. The staff notes that last night he had abdominal pain, which was relieved with a bowel movement. Denies any chest pain or palpitations. States his abdomen hurts severe. Notes he has been eating okay. Denies any fevers or chills. Denies diarrhea, constipation, melena. PHYSICAL: Temperature 98, pulse 89, respiratory 16, BP 136/90. Saturation 95% on room air. General: The patient is awake, and alert. He is oriented x3. He knows that he has a child at home. HEENT: Normocephalic, atraumatic. MESFIN. EOMI. Neck supple. CV: Regular rate. Chest clear. Abdomen soft, nondistended. Diffusely tender to any palpation but also sore without palpation. Denies guarding or rebound. Neurologic: No focal changes. Skin warm and dry. No rashes. ASSESSMENT: 1. Moderate protein calorie malnutrition. 2. Chronic renal failure, stable. 3. Abdominal pain, uncertain etiology, although constipation certainly is high on the differential. 4. Anemia of chronic disease. 5. Syncope, resolved. 6. Altered mental status, appears improving. 7. Situational depression, improving with Zoloft and Seroquel. 8. Pseudomonas bacteremia and Candidemia. Will continue Micafungin for a total of 2 weeks. 9. Osteomyelitis. Continue IV antibiotics for a total of 6 weeks. 10. Congestive heart failure with ejection fraction of 25%-30%. PLAN: As noted above, patient is improved. We will continue to treat his blood pressures with lisinopril 10 mg once a day. He will continue IV antibiotics. We will check a CT of the abdomen today. We will get physical therapy involved and start getting him up and out of bed. cc: Mitch Horowitz MD
--- NOTE | 2017-04-19 09:45 | Diag Imaging Result Doc PS360 ---
EXAM: CT ABD/PELVIS W/ IV CONT ONLY - 04/19/2017 HISTORY: pain TECHNIQUE: With intravenous contrast only per request of the referring provider. Dose reduction protocol. COMPARISON: Without contrast exam of 04/05/2017 FINDINGS: There is a small right pleural effusion which is decreased. The gallbladder is distended and has mildly thickened norris. There are no calcified gallstones or gross pericholecystic inflammation identified. There is no biliary ductal dilatation apparent. There is no discrete liver lesion identified. The spleen and adrenal glands are unremarkable. There are a few small pancreatic calcifications which may relate to chronic pancreatitis. There is no pancreatic mass or definite acute pancreatic inflammation identified. There are small bilateral renal cysts. There is no solid renal mass or hydronephrosis identified. There is a single borderline enlarged periaortic lymph node. There is no evidence of bowel obstruction. There is a moderate amount retained fecal debris in the left colon and rectum. There is no abscess or free air identified. Images of pelvis show distended urinary bladder. There is a small amount of air in the urinary bladder lumen. The urinary bladder norris do not appear grossly thickened. There is a reservoir of penile pump in the left anterior pelvis and there is a collapsed reservoir of penile pump in the right anterior pelvis. There is nonspecific presacral edema which is increased. IMPRESSION: Distended gallbladder with mildly thickened norris. No calcified gallstones or substantial pericholecystic inflammation identified. A few small pancreatic calcifications which may relate to chronic pancreatitis. No definite acute pancreatic inflammation. There is a single borderline enlarged periaortic lymph node. Apparent constipation. No bowel obstruction. No abscess. No free air. Distended urinary bladder, with small amount of air in urinary bladder lumen. Nonspecific presacral edema. Electronically signed by Mata Murillo 04/19/2017 9:42 AM
[2017-04-19] MEDS: DOXYCYCLINE 100 MG in NS 250 ML IV SCH ×2 (10:59→22:42)
[2017-04-19] MEDS: OXYCONTIN PO SCH ×2 (11:01→22:04)
[2017-04-19] MEDS: LOPRESSOR PO SCH ×2 (11:01→22:05)
[2017-04-19] MEDS: PRINIVIL PO SCH ×2 (11:01→22:04)
[2017-04-19] MEDS: MIRALAX PO SCH (11:01)
[2017-04-19] MEDS: SANTYL OINT TOP SCH (12:27)
[2017-04-19] MEDS: MYCAMINE 100 MG in NS 100 ML IV SCH (17:41)
[2017-04-19] MEDS ORDERED: RELISTOR SUBQ ONE ×2 (18:04→22:45)
[2017-04-19] MEDS: LACTULOSE PO SCH (22:04)
[2017-04-19] MEDS: ZOLOFT PO SCH (22:04)
[2017-04-19] MEDS: APRESOLINE PO SCH (22:04)
[2017-04-19] MEDS: XANAX PO SCH (22:05)
[2017-04-19] MEDS: DILAUDID IV PRN (22:05)
[2017-04-19] MEDS: SEROQUEL PO SCH (22:05)
[2017-04-20] MEDS: ZOSYN 2.25 GM/NS 2.25 GM/50 ML IVPB IV SCH ×4 (05:03→21:26)
[2017-04-20] MEDS: HUMULIN R (PARKWAY) SUBQ SCH ×4 (06:35→21:26)
[2017-04-20] MEDS: APRESOLINE PO SCH ×3 (06:35→21:27)
[2017-04-20 08:01] LABS: HEMATOCRIT 36.4 % (42.0-52.0); HEMOGLOBIN 12.2 g/dL (14.0-18.0); MCH 31.1 PG (27-31); MCHC 33.5 g/dL (33-37); MCV 92.9 FL (81-99); PLT 130 X1000 (130-400); RBC 3.92 XMIL (4.7-6.1)
[2017-04-20 08:07] LABS: ALBUMIN 3.2 g/dL (3.5-5.0); CALCIUM 8.4 mg/dL (8.8-10.2); MAGNESIUM 1.8 mg/dL (1.5-2.7); TOTAL BILIRUBIN 0.8 mg/dL (0.20-1.00); TOTAL PROTEIN 6.3 g/dL (6.3-8.3)
[2017-04-20] MEDS: LACTULOSE PO SCH ×2 (08:30→21:27)
[2017-04-20] MEDS: MIRALAX PO SCH (08:30)
[2017-04-20] MEDS: PRINIVIL PO SCH ×2 (08:30→21:28)
[2017-04-20] MEDS: LOPRESSOR PO SCH ×2 (08:30→21:27)
[2017-04-20] MEDS: OXYCONTIN PO SCH ×2 (08:31→21:27)
--- NOTE | 2017-04-20 09:49 | PROGRESS NOTE ---
DATE: 04/20/2017 SUBJECTIVE: The patient says he is feeling much better this morning. He had several large bowel movements yesterday. He notes that his abdominal pain is tremendously better this morning. Denies any chest pains or palpitations. Denies any fevers or chills. OBJECTIVE: Vital Signs: On physical, temp 98, pulse 77, respiratory rate 16, BP 133/92, satting 100% on room air. General: Patient is awake, alert. He is currently in no respiratory distress. Speech is regular. Memory is intact. Neck: Supple. CV: Regular rate and rhythm. Chest: Relatively clear. Abdomen: Soft. Extremities: Moves all extremities. Neurologic: No changes. Skin: Warm and dry. No rashes. LABS: CBC normal. CMP stable. Calcium 8.4. Albumin 3.2. ASSESSMENT: 1. Constipation secondary to opioids, improved. 2. Syncope, resolved. 3. Altered mental status, resolved. Patient is currently back to baseline. 4. Moderate protein calorie malnutrition, improving. 5. Chronic renal failure, stable. 6. Anemia of chronic disease, stable. 7. Situational depression appears resolving. 8. Pseudomonas bacteremia and candidemia. Continue Micafungin for 2 more weeks. 9. Osteomyelitis. Will continue intravenous doxycycline and intravenous Zosyn for another 4 weeks. 10. Hypertension. The patient's blood pressure is improved on lisinopril 20 mg once a day and hydralazine 25 three times a day. cc: Mitch Horowitz MD
[2017-04-20] MEDS: DOXYCYCLINE 100 MG in NS 250 ML IV SCH ×2 (10:36→22:11)
[2017-04-20] MEDS: SANTYL OINT TOP SCH (15:36)
[2017-04-20] MEDS: MYCAMINE 100 MG in NS 100 ML IV SCH (17:36)
[2017-04-20 18:01] LABS: UR AMPHETAMINES QUAL NONE DETECTED (NONE DETECT); UR BARBITUATES QUAL NONE DETECTED (NONE DETECT); UR BENZODIAZEPIN QUAL PRESUMPTIVE POSITIVE (NONE DETECT); UR CANNABINOIDS QUAL NONE DETECTED (NONE DETECT); UR COCAINE QUAL NONE DETECTED (NONE DETECT); UR MDMA QUAL NONE DETECTED (NONE DETECT); UR METHADONE QUAL NONE DETECTED (NONE DETECT); UR METHAMPHETAMINE QUAL NONE DETECTED (NONE DETECT); UR OPIATES QUAL NONE DETECTED (NONE DETECT); UR OXYCODONE QUAL PRESUMPTIVE POSITIVE (NONE DETECT); UR PCP QUAL NONE DETECTED (NONE DETECT); UR TCA QUAL NONE DETECTED (NONE DETECT)
[2017-04-20] MEDS: XANAX PO SCH (21:27)
[2017-04-20] MEDS: ZOLOFT PO SCH (21:27)
[2017-04-20] MEDS: SEROQUEL PO SCH (21:27)
[2017-04-21] MEDS: ZOSYN 2.25 GM/NS 2.25 GM/50 ML IVPB IV SCH ×4 (05:30→17:24)
[2017-04-21] MEDS: APRESOLINE PO SCH ×3 (05:30→23:29)
[2017-04-21] MEDS: HUMULIN R (PARKWAY) SUBQ SCH ×4 (06:00→23:28)
[2017-04-21] MEDS: MIRALAX PO SCH (08:45)
[2017-04-21] MEDS: LACTULOSE PO SCH ×2 (08:45→23:30)
[2017-04-21] MEDS: OXYCONTIN PO SCH ×2 (08:45→23:30)
[2017-04-21] MEDS: LOPRESSOR PO SCH ×2 (08:45→23:31)
[2017-04-21] MEDS: PRINIVIL PO SCH ×2 (08:46→23:29)
[2017-04-21] MEDS: SANTYL OINT TOP SCH (09:59)
[2017-04-21] MEDS: DOXYCYCLINE 100 MG in NS 250 ML IV SCH (10:00)
--- NOTE | 2017-04-21 10:55 | PROGRESS NOTE ---
DATE: 04/21/2017 SUBJECTIVE: The patient is much more awake, alert. He is back to his baseline mental status. He is in no distress. He states he is feeling better. Notes that he had good bowel movements yesterday. Denies any abdominal pain currently. Denies any chest pain, palpitations. PHYSICAL EXAMINATION: Vital Signs: Temperature 97, pulse 86, respiratory rate 18, BP 150/94, saturating 100% on room air. General: Patient is awake, alert. She is currently in no respiratory distress. Speech is regular. Memory is intact. Neck: Supple. CV: Regular rate. Chest clear. Nonlabored. Abdomen: Soft. Extremities: Moves all extremities. Neurologic: No focal changes. Skin: Warm and dry. No rashes. ASSESSMENT: 1. Constipation improved, likely secondary to opioids. 2. Syncope, resolved. 3. Altered mental status, resolved. 4. Moderate protein calorie malnutrition, improving. 5. Chronic renal failure, stable. 6. Anemia of chronic disease, stable. 7. Pseudomonas bacteremia and candidemia. Continue Micafungin. 8. Osteomyelitis. Continue IV doxazosin. PLAN: We will continue patient in the hospital over the weekend with physical therapy. Continue IV antibiotics. Hopefully to rehab first of the week. cc: Mitch Horowitz MD
[2017-04-21] MEDS: MYCAMINE 100 MG in NS 100 ML IV SCH (18:14)
[2017-04-21] MEDS ORDERED: HALDOL IV ONE (21:51)
[2017-04-21] MEDS ORDERED: BENADRYL IV ONE (21:53)
[2017-04-21] MEDS ORDERED: ATIVAN IV ONE (22:12)
[2017-04-21] MEDS: ZOLOFT PO SCH (23:28)
[2017-04-21] MEDS: XANAX PO SCH (23:29)
[2017-04-21] MEDS: SEROQUEL PO SCH (23:29)
[2017-04-22] MEDS: ZOSYN 2.25 GM/NS 2.25 GM/50 ML IVPB IV SCH ×5 (03:41→21:06)
[2017-04-22] MEDS: APRESOLINE PO SCH ×3 (05:16→21:06)
[2017-04-22] MEDS: HUMULIN R (PARKWAY) SUBQ SCH ×4 (09:07→21:11)
[2017-04-22] MEDS: SANTYL OINT TOP SCH ×2 (09:08→09:09)
[2017-04-22] MEDS: LACTULOSE PO SCH ×2 (09:08→21:07)
[2017-04-22] MEDS: LOPRESSOR PO SCH ×2 (09:08→21:06)
[2017-04-22] MEDS: OXYCONTIN PO SCH ×2 (09:09→21:11)
[2017-04-22] MEDS: PRINIVIL PO SCH ×2 (09:09→21:06)
[2017-04-22] MEDS: MIRALAX PO SCH (09:09)
[2017-04-22 09:14] LABS: HEMATOCRIT 35.6 % (42.0-52.0); HEMOGLOBIN 11.4 g/dL (14.0-18.0); MCH 30.1 PG (27-31); MCV 93.9 FL (81-99); MPV 13.4 FL (7.4-10.4); RBC 3.79 XMIL (4.7-6.1)
[2017-04-22 09:40] LABS: ALBUMIN 3.2 g/dL (3.5-5.0); CALCIUM 8.4 mg/dL (8.8-10.2); MAGNESIUM 1.7 mg/dL (1.5-2.7); POTASSIUM 4.3 mmol/L (3.5-5.1); TOTAL BILIRUBIN 0.8 mg/dL (0.20-1.00); TOTAL PROTEIN 6.3 g/dL (6.3-8.3)
[2017-04-22] MEDS: DOXYCYCLINE 100 MG in NS 250 ML IV SCH ×4 (10:49→22:21)
--- NOTE | 2017-04-22 12:28 | Diag Imaging Result Doc PS360 ---
EXAM: HEAD W/O CONTRAST HISTORY: confusion TECHNIQUE: Dose reduction technique COMPARISON: 04/08/2017 FINDINGS: No parenchymal hemorrhage. No epidural or subdural hematoma. No subarachnoid hemorrhage. No mass identified on this noncontrasted exam. No hydrocephalus. No sinus opacification. Mild atrophy with mild chronic ischemic changes. IMPRESSION: 1.No hemorrhage 2.Atrophy with chronic microvascular ischemic changes Electronically signed by Severo Cherry 04/22/2017 12:26 PM
--- NOTE | 2017-04-22 14:29 | PROGRESS NOTE ---
DATE: 04/22/2017 SUBJECTIVE: The patient had a very eventful night last night. He became acutely confused, disoriented, delirious. Required mechanical and physical sedation. He was combative and angry. This was an acute change from earlier in the morning when he was pleasant to talk with, awake, alert, oriented. OBJECTIVE: Vital signs: Ninety-eight, pulse 91, respiratory rate 18, BP 150/90 to 112/73, saturation 98% on room air. General: Patient is awake, alert, oriented. He is currently in no real respiratory distress. Yesterday morning speech was regular and intact. This morning he is sedated from medications. HEENT: Normocephalic, atraumatic. Neck: Supple. CV: Regular rate. Chest: Clear and nonlabored. Abdomen: Soft. Extremities: He has no edema. Neurologic: Unable to assess to his sedation. DIAGNOSTIC DATA: CBC and CMP are essentially normal. Creatinine is at his baseline at 1.8. Glucose 126. Albumin 3.2. His most recent blood cultures have been negative. His cerebrospinal fluid was negative. ASSESSMENT: 1. Altered mental status secondary to depression and sundowning. 2. Congestive heart failure with an ejection fraction of 25 to 30%. 3. Pseudomonas bacteremia. His most recent culture was negative. 4. Wound culture with candidemia. PLAN: Patient will need micafungin until 04/24. He will need Zosyn and doxycycline until 05/02. Will continue each of these IV. Currently continue his lisinopril and hydralazine. We will continue to follow. Spent 45 minutes in discussion with the family regarding sundowning and his acute delirium. We will check a CT, although expected it to be negative. Further orders as needed. cc: Mitch Horowitz MD
[2017-04-22] MEDS: MYCAMINE 100 MG in NS 100 ML IV SCH (17:23)
[2017-04-22] MEDS ORDERED: HALDOL IV PRN (19:11)
[2017-04-22] MEDS ORDERED: BENADRYL IV PRN (19:12)
[2017-04-22] MEDS ORDERED: ATIVAN IV PRN (19:13)
[2017-04-22] MEDS: ZOLOFT PO SCH (21:05)
[2017-04-22] MEDS: SEROQUEL PO SCH (21:05)
[2017-04-22] MEDS: XANAX PO SCH (21:11)
[2017-04-23] MEDS: CATAPRES PO SCH ×3 (01:54→13:17)
[2017-04-23] MEDS: APRESOLINE PO SCH ×2 (04:29→13:17)
[2017-04-23] MEDS: ZOSYN 2.25 GM/NS 2.25 GM/50 ML IVPB IV SCH ×2 (04:29→09:42)
[2017-04-23] MEDS: HUMULIN R (PARKWAY) SUBQ SCH ×2 (06:34→11:37)
--- NOTE | 2017-04-23 08:12 | PROGRESS NOTE ---
DATE: 04/23/2017 SUBJECTIVE: Patient this morning is easily awakened. He is in no distress. He states that he is feeling fine. Denies any complaints. States that he is ready to get out of the hospital. Denies chest pain or palpitations. PHYSICAL EXAMINATION: Vital Signs: Temperature 99, pulse 89, respiratory rate 20, BP 131/87, saturation 100% on room air. General: Patient is awake, alert, oriented. This morning, his speech is regular. Memory is intact. He is in no respiratory distress. He is pleasant to talk with. He is not confused. He is not disoriented. He is not agitated. He states that he slept well last night. HEENT: Normocephalic and atraumatic. Neck: Supple. CV: Regular rate. Chest: Relatively clear. Abdomen: Soft. Extremities: Moves all extremities. Neurologic: No focal changes. Ski: Warm and dry. No rashes. LABS: No current labs this morning. Labs yesterday were his stable baseline without any changes. ASSESSMENT: 1. Acute delirium secondary to situational depression, stable. 2. Pseudomonas bacteremia. We will continue the Zosyn and doxycycline until 04/08. 3. Candidemia. We will continue micafungin until 03/24. 4. Chronic stage IIIB renal failure. 5. Congestive heart failure. 6. Hypertension. 7. Constipation secondary to opioids. PLAN: We will continue to follow. Continues his antibiotics as noted above. We will hopefully transition to rehab when a bed is available. cc: Mitch Horowitz MD
[2017-04-23] MEDS: LACTULOSE PO SCH (09:41)
[2017-04-23] MEDS: MIRALAX PO SCH (09:41)
[2017-04-23] MEDS: LOPRESSOR PO SCH (09:42)
[2017-04-23] MEDS: PRINIVIL PO SCH (09:42)
[2017-04-23] MEDS: OXYCONTIN PO SCH (09:42)
[2017-04-23] MEDS: SANTYL OINT TOP SCH (09:50)
--- NOTE | 2017-04-23 10:26 | DISCHARGE SUMMARY ---
ADMISSION DATE: 04/03/2017 DISCHARGE DATE: 04/23/2017 DIAGNOSES: 1. Osteomyelitis of left great toe. 2. Pseudomonas bacteremia. 3. Candidemia. 4. Chronic kidney disease stage IIIB. 5. Nonischemic cardiomyopathy with an ejection fraction of 25-30% on 04/13/2017. 6. Hypertension. 7. Diabetes mellitus. 8. Chronic constipation secondary to opioid use. 9. Acute delirium secondary to situational depression. 10. Cholelithiasis with no cholecystitis. CONSULTS: Dr. Chavez Callejas, general surgery; Dr. Duyen Saucedo, neurology; Dr. Lim, cardiology; Dr. Blue Freeman, infectious disease. MICROBIOLOGY: 1. Pseudomonas species and Gina parapsilosis, blood. 2. Gina parapsilosis from left big toe culture. DIAGNOSTICS: On 04/03/2017, CT of the head revealed chronic lacunar infarcts at the marybeth with no visible acute process. No hemorrhage or mass effect. CT of the head on 04/05/2017 revealed chronic changes as described with no definite acute intracranial pathology. On 04/08/2017, CT of the head revealed stable exam. On 04/22/2017, CT of the head reveals no hemorrhage, atrophy with chronic microvascular ischemic changes. On 04/13/2017, brain MRI revealed advanced chronic microvascular disease of cerebral and brainstem white matter with no acute or suspicious abnormality. On 04/03/2017, abdominal ultrasound revealed sludge and possibly tiny stones in the gallbladder. Wall is not thickened. A 2.1 cm renal cyst with mild fatty liver. On 04/05/2017, CT of the abdomen and pelvis with suggestion of mesenteric and surrounding soft tissue anasarca, suggestion of cholelithiasis or gallbladder sludge with no surrounding inflammatory change which is stable. On 04/04/2017, carotid Doppler revealed no evidence of hemodynamically significant stenosis in the right nor the left carotid system. On 04/06/2017, foot x-ray revealed advanced vascular disease of the small arteries of the foot and ankle. Stable degenerative heel spurs, stable pedal edema. No fracture or dislocation. No bony erosion. On 04/10/2017, EEG revealed mild diffuse generalized slowing indicative of a mild encephalopathy. This is a nonspecific finding that can be seen in processes that diffusely affect the cerebrum including toxic, metabolic, posthypoxic, and infectious etiologies. Echocardiogram on 04/10/2017 revealed normal left ventricular cavity size, mild left ventricular hypertrophy. Estimated ejection fraction of 25-30% with severe global hypokinesis. Echocardiogram limited on 04/13/2017 revealed left ventricular chamber size and wall thickness that appeared grossly normal with estimated left ejection fraction of 25-30% in the setting of global hypokinesis. Following the administration of IV echocontrast agent Definity, opacification of the entire left ventricle appears to be complete with no evidence of left ventricular thrombus. No evidence of left ventricular thrombus. PROCEDURES: On 04/14/2017, lumbar puncture. On 04/17/2017, ultrasound-guided right internal jugular vein central line placement. HOSPITAL COURSE: Mr. Hylton presented to the emergency room after having a syncopal episode the day prior to admission. He does have a history of left great toe osteomyelitis. Carotid Doppler revealed no hemodynamically significant disease. He had no further syncopal episodes while in the hospital. He does have a history of osteomyelitis to the left great toe for which he was receiving IV daptomycin infusions. Liver function is elevated. Therefore, Dr. Blue Freeman, infectious disease, was consulted. He was changed to doxycycline. Liver enzymes did return to normal levels. He has known Pseudomonas bacteremia for which he is receiving Zosyn and doxycycline and this will continue until May 09, as well as candidemia for which he is receiving micafungin and this last dose will be April 24. He did have acute delirium while in the hospital. CT of the head as well as brain MRI were performed which revealed no acute processes. He did have an episode of hypotension with disorientation and confusion that developed shortly after having friends visit him in his exam room which required a move to ICU. Drug screen was performed and it was positive for methadone. His drug screen had previously been negative for methadone on admission. Drug screens have been checked throughout the hospitalization and they have remained negative for methadone. He has been positive for oxycodone and benzodiazepines which he is being given in the hospital. We did monitor his electrolytes throughout the hospitalization and treat accordingly, as well as pattern blood glucose with sliding scale insulin. He does have a history of chronic constipation secondary to opioid use for which he was treated with MiraLAX daily and lactulose b.i.d. With these, he has been having formed bowel movements almost daily. This regimen will continue. In regards to his delirium, he was seen by Dr. Saucedo in neurology. EEG was performed which revealed mild diffuse general slowing indicative of a mild encephalopathy. Lumbar puncture was performed which revealed no growth with no bacteria, no yeast, with glucose of 65, protein of 287. VDRL was negative. Herpes DNA 1 and 2 were both negative. Meningitis, encephalitis panel was all negative. This morning, the patient is alert and oriented. He is cooperative. His speech is regular. He denies any complaints. He states he had a good night last night and he is feeling fine. DISCHARGE PHYSICAL EXAMINATION: Cardiovascular: Regular rate and rhythm. S1 and S2 are appreciated. Pulmonary: Breath sounds are clear with no increased work of breathing noted. Gastrointestinal: Abdomen is soft, nontender, nondistended. Bowel sounds in all 4 quadrants. Extremities: No clubbing, cyanosis, or edema. Calves are nontender. Pulses are palpable x4. Skin: Warm and dry. Discharge Vital Signs: Blood pressure is 147/90, with a heart rate of 90, respirations are 18, temperature is 98.2 degrees oral, with room air saturation of 98-100%. DISCHARGE DIET: Diabetic. DISCHARGE ACTIVITY: Per PT. DISCHARGE MEDICATIONS: 1. Zoloft 100 mg p.o. at bedtime. 2. Seroquel 50 mg at bedtime. 3. MiraLAX 17 g daily. 4. Zosyn 2.25 g q.6 hours until 05/09/2017. 5. OxyContin 20 mg 1 p.o. q.12 hours. 6. Micafungin 100 mg q.24 hours which we will discontinue on 04/24/2017. 7. Lopressor 25 mg p.o. b.i.d. 8. Prinivil 20 mg p.o. b.i.d. 9. Lactulose 30 mL p.o. b.i.d. 10. Apresoline 25 mg p.o. q.8 hours. 11. Doxycycline 100 mg p.o. q.12 hours which we will discontinue 05/09/2017. 12. Clonidine 0.1 p.o. t.i.d. 13. Xanax 1 mg p.o. at bedtime. 14. Ventolin inhaler 2 puffs q.6 hours p.r.n. wheezing. 15. Sliding scale Humulin R insulin with 200-249, 2 units subcutaneously; 250-299, 4 units subcutaneously; 300-349, 6 units subcutaneously; greater than 350, 8 units subcutaneously. DISPOSITION: He is being discharged to [facility] in stable condition. TIME SPENT: This is a 45 minute discharge from 8:15 to 9:30. Dictated by JEANNETTE Browning for Mitch Horowitz MD cc: JEANNETTE Browning MD
[2017-04-23] MEDS: DOXYCYCLINE 100 MG in NS 250 ML IV SCH (11:37)
[2017-04-23 15:12] VITALS: BP 152/118
== END 2017-04-23 17:22 ==
LOC: P.MEDSURG 09:26 → P.ED 09:26 → SUATTDRO 14:44 → OBSVTOIN 14:44 → P.ICU 04-05 08:07 → P.MEDSURG 04-15 05:26
PROVIDERS: ATTEND Family Medicine

== ENCOUNTER 2017-05-05 13:39 | Inpatient (IN) ==
[2017-05-05] MEDS ORDERED: NS 1,000 ML IV ONE (13:55)
--- NOTE | 2017-05-05 14:37 | Diag Imaging Result Doc PS360 ---
HEAD/C-SPINE W/O CONTRAST - 05/05/2017 INDICATION: Fall/AMS TECHNIQUE: A CT dose reduction protocol was used. COMPARISON: 04/22/2017, 02/09/2014 FINDINGS: Head CT: Stable chronic ischemic changes. There is no acute disease or change from prior. Cervical spine: Alignment is anatomic. No fracture or subluxation. Vertebral body heights are preserved. Disc spaces are preserved. There is mild facet degeneration stable from prior. This is most notable at the right C2-C3 facet. IMPRESSION: No acute disease or change from prior. Electronically signed by Nas Armendariz 05/05/2017 2:35 PM
--- NOTE | 2017-05-05 14:40 | Diag Imaging Result Doc PS360 ---
FLAT/UPRIGHT ABD/1 VIEW CHEST - 05/05/2017 INDICATION: Fall/AMS TECHNIQUE: Three views COMPARISON: 04/17/2017, 04/19/2017 FINDINGS: Stable right-sided line. Stable cardiomegaly and severely low lung volumes. Stable hazy central infiltrates bilaterally suggesting edema or significant atelectasis. There is a nonobstructive bowel gas pattern. No evidence of free air. IMPRESSION: 1. Cardiomegaly. Central infiltrates compatible with pulmonary edema. Critically low lung volumes. 2. No acute process in the abdomen. Electronically signed by Nas Armendariz 05/05/2017 2:38 PM
[2017-05-05 14:57] LABS: ALLEN TEST YES; BE -2.4 mmoll (-3.0-3.0); BLOOD TYPE ARTERIAL; DRAW SITE R RADIAL; METHB 0.5 % (0.0-1.5); O2(CT) 15.7 mL/dL (15.0-23.0); PCO2(98.6) 42 mmHg (35-45); PO2(98.6) 59 mmHg (60-100); SAMPLE BLOOD; SAO2 92.4 % (95.0-100.0); THB 12.4 g/dL (11.5-17.4); pH(98.6) 7.35 (7.35-7.45)
[2017-05-05 14:58] LABS: MODALITY ROOM AIR
[2017-05-05 14:59] LABS: BASO% 0.4 % (0.0-0.8); EOS# 0.21 X1000 (0.0-0.7); EOS% 4.4 % (0.0-10.0); HEMATOCRIT 38.1 % (42.0-52.0); HEMOGLOBIN 12.5 g/dL (14.0-18.0); IMM GRAN# 0.04 X1000 (0.0-0.04); IMM GRAN% 0.8 % (0.0-0.5); LYMPH# 1.41 X1000 (1.2-3.4); LYMPH% 29.3 % (20.5-51.1); MANUAL DIFF NEEDED? NO; MCH 30.9 PG (27-31); MCHC 32.8 g/dL (33-37); MCV 94.3 FL (81-99); MONO% 12.4 % (1.7-9.3); NEUT% 52.7 % (42.2-75.2); PLT 60 X1000 (130-400); RBC 4.04 XMIL (4.7-6.1)
[2017-05-05 15:11] LABS: INR 1.26; PROTIME 13.4 Seconds (9.2-11.7); PTT 28.5 Seconds (22.0-36.0)
[2017-05-05 15:41] LABS: ALBUMIN 3.6 g/dL (3.5-5.0); POTASSIUM 3.6 mmol/L (3.5-5.1); TOTAL BILIRUBIN 0.9 mg/dL (0.20-1.00); TOTAL PROTEIN 6.9 g/dL (6.3-8.3)
[2017-05-05] MEDS ORDERED: LASIX IV ONE (16:12)
--- NOTE | 2017-05-05 16:54 | Diag Imaging Result Doc PS360 ---
ABD/PELVIS/PULM ARTERIES - 05/05/2017 INDICATION: Fall/AMS TECHNIQUE: Axial CT images were obtained after administering intravenous contrast. Coronal MIP images were generated. A CT dose reduction protocol was used. COMPARISON: 04/19/2017 FINDINGS: CHEST: There is no pulmonary embolism. There is cardiomegaly. There are small bilateral pleural effusions similar to prior. There is central pulmonary vascular congestion and central hazy infiltrate/edema similar to prior. Abdomen pelvis: The gallbladder is distended with some dependently layering sludge or small stones, stable from prior. There is probably also wall thickening stable from prior. There is moderate anasarca and trace edema at the mesentery. No bowel obstruction or inflammation. The pancreas is atrophic. Stable bilateral renal cysts. Urinary bladder, prostate, and rectum are normal. Stable extensive vascular disease. There are moderate degenerative changes of the spine. No acute or suspicious bony lesion. IMPRESSION: Very little change from prior. Cardiomegaly, pulmonary edema, pleural effusions. Distended gallbladder with gallstones suggesting chronic cholecystitis. Slight worsening anasarca. Electronically signed by Nas Armendariz 05/05/2017 4:52 PM
[2017-05-05 16:57] LABS: URINE CULTURE NEEDED? NO; URINE MICRO REVIEW NEEDED? NO; URINE SOURCE CATH
[2017-05-05 17:04] LABS: BILIRUBIN URINE NEGATIVE (NEGATIVE); BLOOD URINE TRACE (NEGATIVE); COLOR YELLOW; GLUCOSE URINE NEGATIVE (NEGATIVE); LEUKOCYTES URINE NEGATIVE (NEGATIVE); NITRITE URINE NEGATIVE (NEGATIVE); PH URINE 5.5; PROTEIN URINE 200 mg/dL (NEGATIVE); TURBIDITY URINE HAZY (CLEAR); UROBILINOGEN URINE NORMAL (NORMAL)
[2017-05-05 17:05] LABS: UR EPITHELIAL CELLS <10 /HPF (<10); URINE BACTERIA NEGATIVE /HPF; URINE RBC <10 /HPF (<10); URINE WBC <10 /HPF (<10)
[2017-05-05 17:19] LABS: UR AMPHETAMINES QUAL NONE DETECTED (NONE DETECT); UR BARBITUATES QUAL NONE DETECTED (NONE DETECT); UR BENZODIAZEPIN QUAL PRESUMPTIVE POSITIVE (NONE DETECT); UR CANNABINOIDS QUAL NONE DETECTED (NONE DETECT); UR COCAINE QUAL NONE DETECTED (NONE DETECT); UR METHADONE QUAL NONE DETECTED (NONE DETECT); UR OPIATES QUAL NONE DETECTED (NONE DETECT); UR OXYCODONE QUAL PRESUMPTIVE POSITIVE (NONE DETECT); UR PCP QUAL NONE DETECTED (NONE DETECT)
--- NOTE | 2017-05-05 17:38 | PROVIDER DOCUMENTATION ---
This chart was entered by Elvia Willard Scribe, acting as scribe for Mando Avendaño MD. HPI-General Adult - General Stated Complaint: FALL FROM STANDING Time Seen by Provider: 05/05/17 13:41 Source: patient Allergies/Adverse Reactions: Patient Allergies Allergy/AdvReac Type Severity Reaction Status Date / Time No Known Allergies Allergy Verified 02/03/17 20:38 Home Medications: Home Medication List Medication Instructions Recorded Confirmed Last Taken Type Albuterol Sulfate [Proair Hfa] 8.5 gm IH Q6H PRN PRN 03/14/17 04/13/17 Unknown History Oxycodone HCl [Oxycodone HCl ER] 60 mg PO DAILY #20 tab.er.[id number] 03/20/1704/02/17 22:00 Rx Cyclobenzaprine HCl 10 mg PO BID 04/01/17 04/13/17 Unknown History Lisinopril 10 mg PO DAILY 04/01/17 04/13/17 Unknown History Metoprolol [Lopressor] 25 mg PO BID 04/03/17 04/05/17 Unknown History Hydrocodone/Chlorphen P-Stirex 120 ml PO BID 04/13/17 04/13/17 Unknown History [Tussionex Pennkinetic Susp] Insulin Glargine,Hum.rec.anlog 100 unit SQ DAILY 04/13/17 04/13/17 Unknown History [Lantus Solostar] Pen Needle, Diabetic [Unifine 100 each MC 2-4XDAY PRN PRN 04/13/17 04/13/17 Unknown History Pentips] Sacubitril/Valsartan [Entresto 24 1 each PO BID 04/13/17 04/13/17 Unknown History mg-26 mg Tablet] Alprazolam [Xanax] 1 mg PO QHS #30 tablet 04/23/17 Unknown Rx Clonidine [Catapres] 0.1 mg PO TID tablet 04/23/17 Unknown Rx Collagenase Clostridium Oint 1 gm TOP DAILY oint 04/23/17 Unknown Rx [Santyl Oint] Doxycycline 100 mg IV Q12H 28 Days 04/23/17 Unknown Rx Hydralazine [Apresoline] 25 mg PO Q8HR tablet 04/23/17 Unknown Rx LISINOpril [Prinivil] 20 mg PO BID tablet 04/23/17 Unknown Rx Lactulose 30 ml PO BID udc 04/23/17 Unknown Rx Metoprolol [Lopressor] 25 mg PO BID tablet 04/23/17 Unknown Rx Micafungin Sodium [Mycamine] 100 mg IV DAILY #1 vial 04/23/17 Unknown Rx Oxycodone E.r. [Oxycontin] 20 mg PO Q12HR #30 tablet 04/23/17 Unknown Rx Bnspwatpciws-Mgrk-Tbbyzsjo,Iso 2.25 gm IV Q6H 15 Days 04/23/17 Unknown Rx [Zosyn 2.25 gm/50 ml Galaxy Bag] - History of Present Illness -Gen Adult Nature of Presenting Problems: 62 yo M presents to the ER with complaint of a fall, pt arrived via EMS from [facility]. Pt very sleepy/lethargic on exam, unable to answer questions very well. Per EMS pt was complaining of abdominal/side pain and SUH. Unknown LOC. Per nurse at [facility] pt is at baseline, per family pt is not at baseline. Has swelling noted under R eye. Location of Pain/Injury: reports: face, abdomen Pain Radiation: reports: no radiation Onset/Duration: reports: just prior to arrival Review of Systems - Adult - REVIEW OF SYSTEMS - ADULT ROS:: limited per condition Constitutional: denies: chills, fever Eyes: reports: no symptoms reported Ears, Nose, Mouth & Throat: reports: no symptoms reported Cardiovascular: denies: chest pain, palpitations Respiratory: denies: cough, shortness of breath Gastrointestinal: reports: abdominal pain. denies: diarrhea, nausea, vomiting Genitourinary: reports: no symptoms reported Musculoskeletal: reports: no symptoms reported Integumentary: reports: no symptoms reported Neurological: reports: no symptoms reported Psychiatric: reports: no symptoms reported Endocrine: reports: no symptoms reported Hematologic/Lymphatic: reports: no symptoms reported Allergic/Immunologic: reports: no symptoms reported All Other Systems: Reviewed and Negative Past History - Adult - PAST MEDICAL HISTORY-ADULT Review of Records: reports: Nursing Assessment Review, Medications Reviewed Cardiovascular: reports: CHF, HTN Musculoskeletal: reports: arthritis Neurological: reports: Seizures/Epilepsy, other (NEUROPATHY) Psychiatric: reports: depression Endocrine/Immune: reports: Diabetes, other (neuropathy) - PRIOR SURGERIES/PROCEDURES Surgical/Procedure History: reports: orthopedic (extremity) - IMMUNIZATION STATUS Childhood Immunizations: See Nurse Assessment Flu Vaccine: See Nurse Assessment Physical Exam-General - PHYSICAL EXAM-ADULT Initial Vital Signs Reviewed: Yes - CONSTITUTIONAL General Appearance: lethargic, slow to respond - EYES Eyes: PERRL/EOMI, pink conjunctivae - HEAD, EARS, NOSE, MOUTH & THROAT HENMT: normocephalic/atraumatic, normal ENT inspection, other (EJ to R side) - NECK Neck: supple, normal inspection - RESPIRATORY Respiratory: no respiratory distress, no accessory muscle use - GASTROINTESTINAL (ABDOMEN) Abdominal Exam: soft, tenderness (generalized) - MUSCULOSKELETAL Back Exam: no CVA tenderness, no vertebral tenderness Extremity: normal range of motion, non-tender - SKIN Integumentary: normal color, warm/dry - NEUROLOGIC Neurologic: grossly normal, no motor/sensory deficits - PSYCHIATRIC Psych/Mental Status: normal mood/affect, normal thought content, normal thought process, oriented x 3 Progress - PLAN OF CARE/RESULTS Progress/Plan/Lab Results: Family at bedside reports pt does not walk normally and fell out of his wheelchair, not the shower. Result Diagrams: 05/05/17 14:44 05/05/17 14:43 - XRAY 1 XRAY Study: Chest, Abdomen Impression: Abnormal (cardiomegaly. central infiltrates compatible with pulmonary edema. critically low lung volumes. no acute process in the abdomen. per radiologist) - CT/MRI 1 CT Study: Cervical Spine, Head Impression: Normal (NAD or change from prior, per radiologist) Comparison with other Films: no changes 2 CT Study: Abdomen, Pelvis Impression: See EMR Report (very little change from prior. cardiomegaly, pulmonary edema, pleural effusions. Distended gallbladder with gallstones suggesting chronic cholecystitis. slight worsening anasarca. per radiologist) - CONSULTS/PCP/HOSPITALIST Notification #1 *Consult/PCP/Hospitalist*: Dr. Howell/Melvi Time Discussed: 17:37 Consult Disposition: Will see in ED, Admit Departure - Departure Date of Disposition Decision: 05/05/17 Time of Disposition Decision: 17:37 DIAGNOSIS: Fall, Head injury, CHF (congestive heart failure), Diabetic foot ulcer, Chronic cholecystitis Disposition: ADMITTED INPATIENT 09 Certified Medical Emergency: Emergent Condition: Poor Referrals and Follow-Ups: Ronald Posadas MD [Primary Care Provider] - - Critical Care Note This patient required my direct & personal management of CC.: Yes Total Time (mins): 30 Critical Care Statement: This patient required my direct personal management to treat or rule out processes, the absence of which, could potentiallly result in sudden, clinically significant life or limb threatening deterioration. This chart was documented by the indicated scribe, (Elvia Willard Scribe) and accurately reflects the services I performed and decisions made by me, Mando Avendaño MD, as attested by the provider's signature.
[2017-05-05] MEDS ORDERED: ZOFRAN IV PRN (18:20)
--- NOTE | 2017-05-05 19:02 | HISTORY AND PHYSICAL ---
This is a 62-year-old who was at [facility]. He was originally admitted over at [facility]. He has had a fall. Had infection both in his right and left foot, peripheral vascular disease and his doctors, Dr. Ronald Posadas and Dr. Freeman had put him on long-term IV antibiotics. He has a line in his right IJ. Apparently he fell today. He has had a couple falls over there. He feels still feels very weak. He is supposed to have another 5 days of his IV antibiotics. This time he fell getting out of the shower and hit the back of his head and he hit the right temporal area with some swelling. No lacerations. Did not lose consciousness and he wants to be admitted to the hospital. PAST MEDICAL HISTORY: 1. Osteomyelitis with dry gangrene of left great toe on IV antibiotics. 2. Diabetes mellitus type 2. 3. Hypertension. 4. Depression. 5. Congestive heart failure. Echocardiogram November 2016 ejection fraction was 30%. 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 He has a history peripheral neuropathy, history of seizures as a child. Chronic kidney disease stage 2 to 3. PAST SURGICAL HISTORY: Right arm and right leg and right hip and toe amputation and a penile implant. SOCIAL HISTORY: Denies any tobacco, alcohol or illicit drug use. ALLERGIES: Has no known drug allergies. FAMILY HISTORY: I did not elicit. REVIEW OF SYSTEMS: The main complaint is weakness and still he has had several falls, unsteady on his feet. Fall today, did re bump the back of his head, right mandaeism area and then sores on his feet. He has had some toe amputations. EXAM: Today temp 97.9 degrees, pulse 103, respirations 18, blood pressure 173/126.HEENT: Pupils are equal and round. Lungs: Clear in all lung guthrie. CVP appeared to be about 8 cm water pressure from angle of Jesus. Cardiovascular: Regular rhythm and rate without murmur or S3. PMI diffuse. His weight is 200 pounds, height 6 feet. Abdomen: Soft. Positive bowel sounds. Extremities: He did not have any edema. In his feet there are some calcified ulcers, callused ulcers on the tips of both large toes and some dry ischemia in the tips of several others but did not see any open wounds or drainage at this point. LABORATORY DATA: White count 4820, hematocrit 38, platelet count 60,000. Sodium 138, potassium 3.6, chloride 102, bicarb 20, BUN 18, creatinine 1.5. Blood sugar 133. Calcium 9.0. AST 20, ALT 19, alkaline phos 129. ProBNP was 17,589. Albumin 3.6. PT 13.4, INR 1.26, PTT 28. Urine drug screen positive for oxycodone, positive for benzodiazepine. Urinalysis unremarkable. He had about 200 of protein. ABGs, pH was 7.35, pCO2 42, PO2 59, O2 saturation 90% on 21% FiO2. Abdominal pelvic CT very little change from prior cardiomegaly, pulmonary edema, pulmonary effusions, distended gallbladder and gallstones suggesting chronic cholecystitis, slightly worsening anasarca. Abdominal x-ray cardiomegaly, central infiltrates compatible with pulmonary edema. Critical low lung volumes, no acute process in the abdomen. Head and cervical spine CT, no acute disease. In the head chronic ischemic changes. ASSESSMENT AND PLAN: 1. Systolic and diastolic left ventricular dysfunction, congestive heart failure with pulmonary effusions. He does have an elevated proBNP. We will try and diurese a little more. Note his creatinine is 1.5 which I think is his baseline. Looking back, that is actually pretty good. He has had it up to 2.0 so he does have chronic kidney disease probably stage 2-3. 2. Chronic kidney disease stage 2-3. 3. Diabetes mellitus type 2. We will check his blood sugars and put him on sliding scale. 4. General weakness and deconditioning. Continue physical therapy. 5. Osteomyelitis. He is finishing up his antibiotics under Dr. Freeman' direction. I think we probably need to change out his central line and I think he is getting Zosyn 2.25 mg q.6 hours. Micafungin 100 mg IV daily. Not sure if he still getting that and he is on doxycycline 100 mg IV q.12 hours for which he is going to get a total of 28 days. 6. Hypertension. 7. Peripheral vascular disease. 8. Chronic cholecystitis. 9. I see where he had pseudomonas bacteremia and candidemia. It was Gina parapsilosis from the left big toe culture and also in the blood and Pseudomonas species culture in the blood. cc: Lalo Howell MD
[2017-05-05] MEDS ORDERED: DOXYCYCLINE IV SCH (20:38)
[2017-05-05] MEDS: ENTRESTO 24 MG-26 MG TABLET PO SCH (23:01)
[2017-05-05] MEDS: LOPRESSOR PO SCH (23:01)
[2017-05-05] MEDS: APRESOLINE PO SCH (23:02)
[2017-05-05] MEDS: FLEXERIL PO SCH (23:02)
[2017-05-05] MEDS: LACTULOSE PO SCH (23:02)
[2017-05-05] MEDS: HEPARIN SUBQ SCH (23:02)
[2017-05-05] MEDS: XANAX PO SCH (23:02)
[2017-05-05] MEDS: ZOSYN IV SCH (23:03)
[2017-05-05] MEDS: NS IV SCH (23:03)
[2017-05-05] MEDS: DOXYCYCLINE 100 MG in NS 250 ML IV SCH (23:03)
[2017-05-05] MEDS: TUSSIONEX LIQUID PO SCH (23:03)
[2017-05-05] MEDS: MYCAMINE 100 MG in NS 100 ML IV SCH (23:04)
[2017-05-06] MEDS: HUMULIN R SUBQ SCH ×5 (00:21→21:54)
[2017-05-06] MEDS: APRESOLINE PO SCH ×3 (05:47→21:53)
[2017-05-06] MEDS: NS IV SCH ×3 (05:48→17:40)
[2017-05-06] MEDS: ZOSYN IV SCH ×3 (05:48→17:40)
[2017-05-06 06:49] LABS: BASO% 0.2 % (0.0-0.8); EOS# 0.09 X1000 (0.0-0.7); EOS% 1.9 % (0.0-10.0); HEMATOCRIT 39.6 % (42.0-52.0); LYMPH# 1.29 X1000 (1.2-3.4); LYMPH% 27.3 % (20.5-51.1); MANUAL DIFF NEEDED? NO; MCH 30.7 PG (27-31); MCHC 32.8 g/dL (33-37); MCV 93.4 FL (81-99); MONO# 0.52 X1000 (0.11-0.59); NEUT% 59.6 % (42.2-75.2); PLT 68 X1000 (130-400); RBC 4.24 XMIL (4.7-6.1)
[2017-05-06 07:26] LABS: HEMOGLOBIN A1C 6.5 % (4.8-6.0)
[2017-05-06] MEDS ORDERED: LASIX IV SCH (09:00)
[2017-05-06] MEDS ORDERED: MYCAMINE IV SCH (09:00)
[2017-05-06] MEDS ORDERED: ATIVAN IV PRN (10:10)
[2017-05-06 10:54] LABS: ALBUMIN 3.6 g/dL (3.5-5.0); CALCIUM 8.7 mg/dL (8.8-10.2); POTASSIUM 3.6 mmol/L (3.5-5.1); TOTAL BILIRUBIN 1.08 mg/dL (0.20-1.00); TOTAL PROTEIN 6.7 g/dL (6.3-8.3)
--- NOTE | 2017-05-06 10:58 | Diag Imaging Result Doc PS360 ---
CHEST-2 VIEWS - 05/06/2017 INDICATION: Heart Failure TECHNIQUE: COMPARISON: 05/05/2017 FINDINGS: Stable right central line. Stable critically low lung volumes. There is improvement in the central pulmonary vascular congestion. No obvious infiltrates. Stable cardiomegaly. IMPRESSION: Cardiomegaly. Improvement in the central pulmonary edema and vascular congestion. Electronically signed by Nas Armendariz 05/06/2017 10:56 AM
[2017-05-06] MEDS: FLEXERIL PO SCH ×2 (11:15→21:53)
[2017-05-06] MEDS: CATAPRES PO SCH ×3 (11:15→17:40)
[2017-05-06] MEDS: LOPRESSOR PO SCH ×2 (11:15→21:53)
[2017-05-06] MEDS: ENTRESTO 24 MG-26 MG TABLET PO SCH ×2 (11:15→21:54)
[2017-05-06] MEDS: TUSSIONEX LIQUID PO SCH ×2 (11:16→21:53)
[2017-05-06] MEDS: HEPARIN SUBQ SCH ×2 (11:16→21:53)
[2017-05-06] MEDS: LACTULOSE PO SCH ×2 (11:16→21:53)
[2017-05-06] MEDS: DOXYCYCLINE 100 MG in NS 250 ML IV SCH (11:16)
[2017-05-06] MEDS: SANTYL OINT TOP SCH (11:17)
[2017-05-06] MEDS ORDERED: LASIX IV ONE (13:15)
--- NOTE | 2017-05-06 17:19 | PROGRESS NOTE ---
DATE: 05/06/2017 SUBJECTIVE: He got upset this morning and got a little bit agitated and confused. We gave a little Ativan which seemed to help. His breathing appears to be comfortable. OBJECTIVE: Vital Signs: Temp 97.8 degrees, pulse 76, respirations 20, blood pressure 173/127. Has been running high. HEENT: Pupils are equal and round. Lungs: Clear in all lung guthrie. Cardiovascular: Regular rhythm and rate without murmur or S3. Abdomen: Soft. Skin: Warm and dry. Extremities: Feet really unchanged. Poor pedal pulses. Ischemic distal appendages. LAB: Review from lab yesterday hematocrit 39, hemoglobin 13. Electrolytes pretty unremarkable. Serum creatinine 1.6. Blood sugars 133, 109. Chest x-ray cardiomegaly. Improvement from central pulmonary edema and vascular congestion from yesterday. Abdominal pelvic CT, which was done yesterday, showed very little change from prior cardiomegaly, pulmonary edema, pleural effusions, distended gallbladder, and gallstones suggesting chronic cholecystitis. ASSESSMENT AND PLAN: 1. Systolic and diastolic left ventricular dysfunction, congestive heart failure, and pulmonary effusions, and elevated pro-B-type natriuretic peptide. Continue to diurese. Creatinine appears to baseline. 2. Chronic kidney disease. Creatinine at 1.6 and that is probably baseline for him. 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 3. Diabetes mellitus type 2. Continue to follow blood sugars. 4. General weakness and deconditioning. Continue physical therapy. 5. Osteomyelitis. He has been getting IV antibiotics. We will have Dr. Freeman assess and see how much longer he needs. He was getting Zosyn. For a time he was Micafungin and doxycycline 100 mg IV q.12 hours. 6. Hypertension. 7. Peripheral vascular disease. 8. Chronic cholecystitis. 9. Apparently had Pseudomonas bacteremia and candidemia theo was grown from the toe and also the blood stream. Pseudomonas was grown from blood cultures. Respiratory status has improved. He looks better. He is having some confusion and delirium. Looking over his medications, he gets Xanax at night and I am not sure if that is helping or hurting. He gets hydrocodone 5 mg b.i.d. We will add some Ativan p.r.n. cc: Lalo Howell MD
[2017-05-06] MEDS: XANAX PO SCH (21:53)
[2017-05-06] MEDS: LEVAQUIN PO SCH (21:56)
[2017-05-06] MEDS: DOXYCYCLINE PO SCH (21:56)
[2017-05-07] MEDS: MYCAMINE 100 MG in NS 100 ML IV SCH (02:22)
[2017-05-07] MEDS: LASIX IV SCH ×3 (02:22→22:25)
[2017-05-07] MEDS: APRESOLINE PO SCH ×3 (05:22→22:26)
--- NOTE | 2017-05-07 05:58 | CONSULTATION ---
DATE OF CONSULTATION: 05/06/2017 CONCLUSION: I have been asked to see the patient regarding osteomyelitis of the great toe. RECOMMENDATIONS: I agree with treating the patient with doxycycline. I think it can be given p.o. rather than IV because it is very well absorbed and the p.o. doxycycline gives a comparable blood level as IV doxycycline. I have discontinued Zosyn because the patient, from his toe, had Proteus which is susceptible to Levaquin and the Pseudomonas that was in the patient's bloodstream but not the toe is also susceptible to the Levaquin. Therefore, if the Pseudomonas originated from the patient's toe, which I do not have culture evidence for, being treated with Levaquin would provide coverage. Finally, the patient had a Gina parapsilosis in the blood which has been adequately treated with micafungin. However, it also was found from the toe and therefore micafungin should be continued to complete his 6 week course of antibiotics which appears to be done in another week. Therefore, to summarize, I think the patient can receive p.o. doxycycline in a dose of 100 mg p.o. every 12 hours and Levaquin 500 mg daily for another week to complete all of his treatment for his infections. DISCUSSION: The patient was admitted from the custodial because he fell and injured his head. Also, he was complaining of pain in his right hip area which was injured when he fell. I had been seeing the patient for osteomyelitis of the great toe as outlined above. Currently, the patient was on IV doxycycline and IV micafungin and IV Zosyn. I think we can treat the patient with p.o. doxycycline and p.o. Levaquin to continue treatment of the bacterial organisms, and continue micafungin to provide coverage for the Gina parapsilosis which was in the patient's toe as well as bloodstream. Patient's laboratory studies thus far show a CBC with a white count of 4720, hemoglobin 13, and platelet count 68,000. Creatinine is 1.6. GFR is 53. Liver function studies are normal except for slight elevation of the alkaline phosphatase at 126. Urinalysis shows no white cells or bacteria. Chest x-ray showed improved pulmonary edema. CT scan of the abdomen and pelvis showed a distended gallbladder with stones and anasarca. CT scan of the spine and head showed no acute disease. PAST MEDICAL HISTORY/REVIEW OF SYSTEMS: The patient was unable to provide a review of systems. As mentioned above, he is complaining of pain in his right hip which he injured when he fell. He is not complaining of a headache tonight. Patient's past medical history is positive for diabetes mellitus, hypertension, depression, congestive heart failure, peripheral neuropathy, end-stage renal disease, and seizures which he had as a child but not as an adult. INFECTIOUS DISEASE HISTORY: Positive for osteomyelitis of the great toe with methicillin- resistant Staphylococcus aureus, Proteus, and Gina parapsilosis. The Gina also caused fungemia. PAST SURGICAL HISTORY: He has had surgery on his right arm, right leg, right hip, a little toe amputation, and a penile implant. FAMILY HISTORY: Unable to obtain from the patient. SOCIAL HISTORY: The patient denies smoking cigarettes, drinking alcoholic beverages, or abusing drugs. ALLERGIES: His chart lists no known allergies. HOME MEDICATIONS: Consist of the following: Sacubitril/valsartan, Zosyn, oxycodone, micafungin, metoprolol, lisinopril, lactulose, insulin, hydrocodone, hydralazine, doxycycline, cyclobenzaprine, Catapres, Xanax, and ProAir HFA. PHYSICAL EXAMINATION: Vital Signs: Temperature is 97.6 degrees, pulse 99, respirations 16, blood pressure 148/112. Patient's weight is listed as 201 pounds. General: This is an obese, middle- aged male. He is in no acute distress. Head, Eyes, Ears, Nose, and Throat: He can hear my spoken words and see near objects. No drainage noted from the nose or ears. Neck: No meningismus. Thorax: No increased AP diameter of the chest. Lungs: Clear to auscultation. Cardiovascular: Regular heart rate. Abdomen: Soft and nontender. Extremities : The patient can move his extremities. He complained of a little bit of pain when he moved his right hip. Both of the patient's great toes are not swollen, tender, erythematous, or draining. Neurologic: Patient is awake. He can move his extremities. There is no tremor. His memory, as regarding his medical history was decreased. Thank you for the consult. cc: Blue Freeman MD MTDD
[2017-05-07] MEDS: HUMULIN R SUBQ SCH ×4 (06:05→22:27)
[2017-05-07 07:16] LABS: BASO% 0.2 % (0.0-0.8); EOS% 2.1 % (0.0-10.0); HEMATOCRIT 39.6 % (42.0-52.0); HEMOGLOBIN 13.1 g/dL (14.0-18.0); LYMPH# 1.16 X1000 (1.2-3.4); LYMPH% 24.5 % (20.5-51.1); MANUAL DIFF NEEDED? YES; MCH 30.8 PG (27-31); MCHC 33.1 g/dL (33-37); MCV 93.2 FL (81-99); MONO# 0.48 X1000 (0.11-0.59); MONO% 10.1 % (1.7-9.3); NEUT% 63.1 % (42.2-75.2); PLT 64 X1000 (130-400); RBC 4.25 XMIL (4.7-6.1)
[2017-05-07 07:17] LABS: ALBUMIN 3.6 g/dL (3.5-5.0); CALCIUM 8.9 mg/dL (8.8-10.2); MAGNESIUM 1.5 mg/dL (1.5-2.7); POTASSIUM 3.2 mmol/L (3.5-5.1); TOTAL BILIRUBIN 1.1 mg/dL (0.20-1.00); TOTAL PROTEIN 6.7 g/dL (6.3-8.3)
--- NOTE | 2017-05-07 08:41 | Diag Imaging Result Doc PS360 ---
EXAM: CHEST-PORTABLE HISTORY: sob TECHNIQUE: AP portable upright at 0810 COMMENT: There is a right internal jugular central venous catheter with its tip in the right atrium. The inspiration is suboptimal. The appearance of the chest has not changed significantly since 05/06/2017. IMPRESSION: Stable chest. Electronically signed by Collin Bautista 05/07/2017 8:38 AM
[2017-05-07 08:52] LABS: LARGE PLATELETS 1+; LYMPHS 34 % (21-51); MONO 2 % (1-9)
[2017-05-07] MEDS: DOXYCYCLINE PO SCH ×2 (09:10→22:26)
[2017-05-07] MEDS: HEPARIN SUBQ SCH ×2 (09:10→22:25)
[2017-05-07] MEDS: ENTRESTO 24 MG-26 MG TABLET PO SCH ×2 (09:10→22:29)
[2017-05-07] MEDS: LACTULOSE PO SCH ×2 (09:10→22:24)
[2017-05-07] MEDS: FLEXERIL PO SCH ×2 (09:10→22:26)
[2017-05-07] MEDS: CATAPRES PO SCH ×3 (09:10→16:49)
[2017-05-07] MEDS: SANTYL OINT TOP SCH (09:10)
[2017-05-07] MEDS: LOPRESSOR PO SCH ×2 (09:10→22:25)
[2017-05-07] MEDS: TUSSIONEX LIQUID PO SCH ×2 (09:22→22:25)
[2017-05-07] MEDS ORDERED: POTASSIUM CHLORIDE 20% LIQUID PO ONE (12:34)
--- NOTE | 2017-05-07 13:38 | PROGRESS NOTE ---
DATE: 05/07/2017 SUBJECTIVE: Mr. Hylton is feeling much better. No pain at this time. Breathing comfortably. Feels stronger. OBJECTIVE: Vital signs: Temperature 97.3 degrees, pulse 87, respirations 22, blood pressure 149/104. CVP less than 6 cm. Lungs: Clear in all lung guthrie. Cardiovascular: Regular rhythm and rate without murmur or S3. Abdomen: Soft. Skin: Warm and dry. LABORATORY: White count 4740, hematocrit 39, platelet count 64,000. Chemistry: Sodium 146, potassium 3.2, chloride 104, bicarb 29, BUN 15, creatinine 1.7. IMAGING: Chest x-ray: Stable chest. ASSESSMENT AND PLAN: 1. History of osteomyelitis of the great toe. Treated the patient with doxycycline which is being given p.o. instead of intravenously and absorbed the same. He has discontinued the Zosyn because patient had Pseudomonas in his blood stream, but not his toe, and it is acceptable to Levaquin. We do have a culture evidence of being treated for Pseudomonas from the toe, so we will use Levaquin. Gina in the blood which was adequately treated with micafungin, but he also found it in the toe; therefore, micafungin should be continued to complete 6-week course. 2. Systolic and diastolic left ventricular function. Left ventricular function appears to be well compensated. He did have an elevated proBNP. He is breathing much better. 3. Chronic kidney disease. Creatinine at baseline 1.6. 4. General weakness, deconditioning. We will initiate physical therapy. 5. History of hypertension. Blood pressure is well controlled. 6. Peripheral vascular disease. 7. Chronic cholecystitis. I am going to supplement some potassium p.o. Note that his magnesium looks okay. Creatinine 1.7 which is baseline. cc: Lalo Howell MD
--- NOTE | 2017-05-07 16:36 | PROGRESS NOTE ---
DATE: 05/07/2017 PRESENT ILLNESS: The patient has osteomyelitis of the left great toe. MEDICATIONS: The patient currently is receiving doxycycline and Levaquin p.o. and micafungin IV. PHYSICAL EXAMINATION: Vital Signs: Temperature is 97.3 degrees, pulse 87, respirations 22, blood pressure 140/104. General: This is an ill-appearing, middle-aged male. He is in no acute distress. Lungs: Clear to auscultation. Cardiovascular: Heart rate is regular. Abdomen: Soft and nontender. Extremities: Both toes are not swollen, tender or draining. LABORATORY AND X-RAY: Chest x-ray shows catheters in the right internal jugular vein. A CBC today shows a white count of 4740, hemoglobin 13.1, and platelet count 64,000. Creatinine is 1.7, GFR is 50. ASSESSMENT AND PLAN: The patient has osteomyelitis of the toe. He needs now 6 more days of treatment with the Levaquin, doxycycline and IV micafungin. The patient's comorbidities are diabetes mellitus, congestive heart failure, and end-stage renal disease. cc: Blue Freeman MD
[2017-05-07] MEDS: LEVAQUIN PO SCH (22:26)
[2017-05-07] MEDS: XANAX PO SCH (22:26)
[2017-05-08] MEDS: MYCAMINE 100 MG in NS 100 ML IV SCH (01:48)
[2017-05-08] MEDS: HUMULIN R SUBQ SCH ×4 (06:02→22:32)
[2017-05-08] MEDS: APRESOLINE PO SCH ×3 (06:40→22:31)
[2017-05-08] MEDS: ENTRESTO 24 MG-26 MG TABLET PO SCH ×2 (09:19→22:31)
[2017-05-08] MEDS: HEPARIN SUBQ SCH ×2 (09:19→22:32)
[2017-05-08] MEDS: DOXYCYCLINE PO SCH ×2 (09:19→22:32)
[2017-05-08] MEDS: LOPRESSOR PO SCH ×2 (09:19→22:31)
[2017-05-08] MEDS: CATAPRES PO SCH ×3 (09:19→22:31)
[2017-05-08] MEDS: FLEXERIL PO SCH ×2 (09:19→22:31)
[2017-05-08] MEDS: LACTULOSE PO SCH ×2 (09:20→22:31)
[2017-05-08] MEDS: LASIX IV SCH ×2 (09:20→22:32)
[2017-05-08] MEDS: SANTYL OINT TOP SCH (09:20)
[2017-05-08] MEDS: TUSSIONEX LIQUID PO SCH ×2 (09:20→22:31)
[2017-05-08] MEDS: TYLENOL PO PRN (15:27)
--- NOTE | 2017-05-08 15:28 | PROGRESS NOTE ---
DATE: 05/08/2017 PRESENT ILLNESS: The patient has osteomyelitis of the left great toe. Also it has been noticed that the patient has an altered mental status. This is a healthy appearing, young male who is in no acute distress. At times he seemed saddened and talked about that he was told he had cancer. I scanned the information into the computer as regarding tests and results that have been done on Mr. Hylton. He is fixated on the idea that he has terminal lung cancer, although after looking at all the reports, I could not find any one that mentioned lung cancer. MEDICATIONS: Patient is on a combination of doxycycline, Levaquin, and micafungin. This is day 37 of treatment with the antibiotics for the patient's left great toe osteomyelitis. PHYSICAL EXAMINATION: Vital Signs: Temperature is 97.8 degrees, pulse 92, respirations 21, blood pressure 127/67. General: This is a fairly healthy appearing, middle-aged male. He is no acute distress. Head, eyes, ears, nose, and throat: He can hear my spoken words. He can see near objects. Neck: No meningismus. Lungs: Clear to auscultation. Cardiovascular : Regular heart rate. Abdomen: Soft, nontender. Neurologic: Patient is awake. He can move his extremities. Bones, Joints, Muscles: Both of the great toes were slightly swollen but they were not erythematous and they were not draining, and movement of the toes did not seem to cause any significant pain. In addition, the left toe does have an ulcerated lesion on the plantar aspect. ASSESSMENT AND PLAN: As mentioned above, I am going to keep treating the patient with his Levaquin, doxycycline, and micafungin, and now he needs 5 more days of treatment. As regarding his altered mental status, I put a consult in for Dr. Saucedo. COMORBIDITIES: Include diabetes mellitus, congestive heart failure, and end- stage renal disease. cc: Blue Freeman MD [facility]ITALSteffany
--- NOTE | 2017-05-08 17:03 | PROGRESS NOTE ---
DATE: 05/08/2017 SUBJECTIVE: Review of his past medical records, he was under the assumption somebody told him he had about 10 days to live and he has repeated this. I do not know where he got this from. There was also a note on his past medical history in regards to lung cancer. He was admitted on 05/05/2017. He has had an abdominal x-ray done on 05/05/2017, cardiomegaly, no acute process. Head and cervical CT showed no acute disease. He had abdominal and pelvic CT done on the and had very little change from prior, pulmonary edema, pleural effusions, distended gallbladder, gallstones suggesting chronic cholecystitis, slight worsening anasarca. PAST MEDICAL HISTORY: Osteomyelitis and gangrene of his left great toe for which he has been on IV antibiotics. Diabetes mellitus type 2. Hypertension. Depression. Congestive heart failure. Echocardiogram done November 2016, ejection fraction was 30%. He has had a history of peripheral neuropathy. SURGICAL HISTORY: Right arm, right leg, right hip and toe amputation. He has had a penile implant. ASSESSMENT AND PLAN: 1. He appears better, he feels better, a little stronger. We are going to continue his present antibiotics. 2. Peripheral neuropathy. Peripheral vascular disease. Ulcers in his feet and toes. These are improving. 3. General weakness and deconditioning. Continue physical therapy. Note that we are treating him for Pseudomonas and also micafungin. So I think Dr. Freeman wants a couple more days of micafungin IV and we can switch him to Levaquin and doxycycline p.o. So he needs 5 more treatments of IV micafungin. Continue the Levaquin, doxycycline. 4. Note he has chronic kidney disease, aware. Serum creatinine 1.7. Potassium was 3.2 yesterday and we supplemented some potassium. I do not see any mention or history of lung cancer. cc: Lalo Howell MD
--- NOTE | 2017-05-08 18:52 | Diag Imaging Result Doc PS360 ---
EXAM: CHEST-2 VIEWS HISTORY: pulmonary edema TECHNIQUE: AP upright and lateral chest COMMENT: The left hemidiaphragm is elevated as it was on 05/07/2017. The lungs are essentially clear otherwise and there has been no significant change since the previous study. IMPRESSION: Stable chest. Electronically signed by Collin Bautista 05/08/2017 6:50 PM
[2017-05-08] MEDS: XANAX PO SCH (22:31)
[2017-05-08] MEDS: LEVAQUIN PO SCH (22:32)
[2017-05-09] MEDS: MYCAMINE 100 MG in NS 100 ML IV SCH (01:30)
[2017-05-09 07:53] LABS: CALCIUM 8.4 mg/dL (8.8-10.2); MAGNESIUM 1.5 mg/dL (1.5-2.7); POTASSIUM 3.2 mmol/L (3.5-5.1)
[2017-05-09] MEDS: APRESOLINE PO SCH ×3 (07:56→18:20)
[2017-05-09] MEDS: HUMULIN R SUBQ SCH ×4 (07:56→22:45)
[2017-05-09] MEDS: CATAPRES PO SCH ×3 (09:04→22:43)
[2017-05-09] MEDS: DOXYCYCLINE PO SCH ×2 (09:04→22:43)
[2017-05-09] MEDS: LACTULOSE PO SCH ×2 (09:05→22:43)
[2017-05-09] MEDS: FLEXERIL PO SCH (09:05)
[2017-05-09] MEDS: HEPARIN SUBQ SCH ×2 (09:05→22:43)
[2017-05-09] MEDS: LOPRESSOR PO SCH ×2 (09:05→22:43)
[2017-05-09] MEDS: LASIX IV SCH (09:05)
[2017-05-09] MEDS: ENTRESTO 24 MG-26 MG TABLET PO SCH ×2 (09:06→22:44)
[2017-05-09] MEDS: SANTYL OINT TOP SCH (09:07)
[2017-05-09] MEDS: TUSSIONEX LIQUID PO SCH ×2 (09:56→22:43)
[2017-05-09] MEDS: TYLENOL PO PRN (13:47)
--- NOTE | 2017-05-09 14:47 | PROGRESS NOTE ---
DATE: 05/09/2017 PRESENT ILLNESS: Currently, we are treating the patient for osteomyelitis of the left great toe. Also, the patient at times appears to have an altered mental status. MEDICATIONS: The patient is receiving at this time a combination of p.o. doxycycline and Levaquin and IV micafungin. PHYSICAL EXAMINATION: Vital Signs: Temperature is 97.9 degrees, pulse 82, respirations 20, blood pressure 131/98. General: This is a somewhat ill-appearing, middle-aged male who is in no acute distress. Lungs: Clear to auscultation. Cardiovascular: Heart rate is regular. Abdomen: Soft and nontender. Feet: Both great toes are less swollen. There is no drainage coming from the toes. The left one does have a dried plantar ulcer on it. LAB AND X-RAY: Creatinine-2.1, GFR 39. NO new other lab and no new radiology. ASSESSMENT AND PLAN: The plan is to continue 3 antibiotics for 4 more days to complete the treatment course. As regarding the patient's mental status change, Neurology has been consulted. Patient's comorbidities include diabetes mellitus, congestive heart failure, and end-stage renal disease. cc: Blue Freeman MD MTDD
--- NOTE | 2017-05-09 15:29 | PROGRESS NOTE ---
DATE: 05/09/2017 SUBJECTIVE: Today, Mr. Hylton refers to be doing a little better. Still continues to have some issues with his gait. OBJECTIVE: Vital signs: Blood pressure is 131/98, pulse 83, respirations 20, temperature is 97.8 degrees. General: Mr. Hylton is a 62-year-old male. He was in bed. The daughter was actually at the bedside with him. He was not in any distress. HEENT: Mucosa pink and moist. Anicteric. Acyanotic. Neck: Supple. Chest: Good air entry bilaterally. There is a central line in the right jugular. Cardiovascular: Regular rate and rhythm. There are no murmurs, no rubs, no gallops. Abdomen: Soft. Extremities: No pedal edema. Central Nervous System: Patient is awake, alert, and oriented. The patient has some old ulceration under the left big toe. Upon exploration of sensation, patient has no sensation, no feeling from under his feet all the way to the mid leg. Reflexes are intact and there is no vibratory sense in the lower extremities in a glove and stocking pattern. Patient's Romberg was also positive. LABORATORY DATA: There is no CBC for today. Chemistry is reviewed. Sodium is 142, potassium is 3.2, chloride 99, bicarbonate is 21, BUN is 25, and creatinine is 2.1. ASSESSMENT: 1. Multiple falls. Etiology is unclear. I think patient does have underlying severe peripheral diabetic polyneuropathy that is contributing to his risk of fall. We are going to start him on Lyrica, and also do B12 and folate levels as well as RPR to rule out any other etiology that can compromise his gait. 2. History of candidemia. Patient is currently on Micafungin. I understand he needs 4 more days of the antifungal. Will follow up closely with Dr. Freeman. 3. Generalized weakness and deconditioning. 4. Chronic kidney disease. Creatinine went up slightly. The patient is currently on Lasix. I do not see him as fluid overloaded, so I will go ahead and discontinue the IV Lasix. 5. Diabetes mellitus, stable. 6. Episode of confusion and delirium. Patient's sensorium is a whole lot better now. cc: Angel Alonso MD
--- NOTE | 2017-05-09 16:42 | Diag Imaging Result Doc PS360 ---
MRI BRAIN W W/O CONTRAST - 05/09/2017 INDICATION: altered mental status COMPARISON: Head CT 05/05/2017 FINDINGS: There is no area of restricted diffusion. There is mild diffuse atrophy. There is mild periventricular white matter chronic microvascular disease. There are also some chronic microvascular changes in the midbrain and marybeth, as well as a small lacunar in the marybeth. No intracranial mass or hemorrhage. No abnormal contrast enhancement. IMPRESSION: Atrophy and chronic ischemic changes of the brain. No acute abnormality. Electronically signed by Nas Armendariz 05/09/2017 4:40 PM
[2017-05-09 19:49] LABS: VITAMIN D 25 HYDROXY 5.8 NG/DL
[2017-05-09] MEDS ORDERED: LYRICA PO SCH (21:00)
[2017-05-09] MEDS: LEVAQUIN PO SCH (22:43)
[2017-05-09] MEDS: XANAX PO SCH (22:43)
--- NOTE | 2017-05-09 22:59 | CONSULTATION ---
DATE OF CONSULTATION: 05/09/2017 REASON FOR CONSULTATION: The patient is seen in consultation at the request of Dr. Blue Freeman for evaluation of altered mental status. HISTORY OF PRESENT ILLNESS: The patient is a 62-year-old right-handed male w/ remote history of seizures who has been in and out of the hospital recently, being treated for osteomyelitis and bacteremia. He has been noted to have a change in his mental status during both of his hospitalizations and this is why I am being consulted. The daughter is at bedside who provides most of the history. She says that several weeks ago before his hospitalizations, he was normal. He was walking around and his memory seemed intact as did his mood. Since he has been in and out of the hospital, he has had the development of altered mentation which she describes as confusion and auditory hallucinations as well as mood swings. He will be acting pretty normally and then all of a sudden he will start crying and be very depressed for roughly an hour or so and then he will be okay again. In the last couple of days he has become convinced that he has lung cancer and is going to in about a week. His physicians here have looked through the chart to see if there has been any evidence of this lung cancer diagnosis and they have not found this. It is not clear why the patient all of sudden has this in his mind, but he has perseverated on this since that time. Also the patient has had multiple falls during the last several weeks which is new. He falls forward. He has hit his head a few times with these falls. They both deny that he has lost consciousness with the falls, though they are not sure of this. The daughter says that during these hospitalizations he has started using a walker and is having a difficult time with gait and that this is also new for him. He does have a history of peripheral neuropathy and the patient blames his gait issues on the PN. I spoke with the nurse today who relays that when he is up with physical therapy using a walker, he does not even try to use his feet and has to be coached by the therapist to even get his feet moving. He has a very short stride when he does move his feet. The auditory hallucinations include him hearing trains and people talking to him. She wonders if he is hearing people talking in the hallways and applying it to his life. History from the patient's reveals that he did indeed have seizures when he was "very young." His last one was when he was a teenager and she says he would "fall out and shake." The says that he was on she believes phenytoin for his seizures but this was 20 years ago. The patient was also at [facility] recently and for some reason a drug screen was checked on admission and repeated during his hospitalization, and that repeat drug screen was positive for methadone, but the first one was not. He has no history of taking methadone and the daughter says he does not have access to methadone. He has no psych history per the daughter. PAST MEDICAL HISTORY: 1. Seizure disorder, previously on possibly phenytoin but not since 20 years. Last known seizure was in his teenage years. 2. Type 2 diabetes. 3. Osteomyelitis of the left great toe. 4. Hypertension. 5. Congestive heart failure. 6. Peripheral neuropathy. 7. Chronic kidney disease. SOCIAL HISTORY: He is a nonsmoker and denies illicit drug use ever. He also denies alcohol. 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 He is and has two children. ALLERGIES: No known drug allergies. FAMILY HISTORY: Family history is negative for seizures and strokes. MEDICATIONS: He is being given: 1. Xanax. 2. Tussionex. 3. Catapres. 4. Doxycycline. 5. Apresoline. 6. Insulin. 7. Levaquin. 8. Lopressor. 9. Zofran as needed. 10.Lyrica has recently been started today. 11.Entresto. 12.Micafungin. REVIEW OF SYSTEMS: A balance of 12 was conducted and is negative except that detailed in the HPI with the addition of complaints of generalized weakness and gait unsteadiness with repeated falls. PHYSICAL EXAMINATION: Vital signs: He has been afebrile. Blood pressure 126/ 74. Pulse 87. Respirations 17. O2 100% on room air. General: He is awake and in no acute distress. He is sitting up on the side of the bed, hunched over with head down, and his arms in his lap, with minimal spontaneous interaction. He almost looks apathetic or abulic. HEENT: Normocephalic. Moist mucous membranes. Eyes are not erythematous. Neck: Supple without meningismus. No carotid bruits detected. Cardiovascular: Regular rate and rhythm. No murmurs appreciated. Lungs: Clear to auscultation anteriorly. Abdomen: Soft, nontender, nondistended. Extremities: Notable for healing osteomyelitis of the left great toe. Mental status: He is awake and alert. He does not spontaneously interact but rather seems withdrawn, possible abulic or apathetic. He is able to name parts of my glasses correctly. He is able to name the watch but unable to tell me the face of the watch. He names a pen. He repeats. He is oriented to place, the president, the month. He does not know the year nor today's date. He is able to tell me the holiday that is upcoming. He knows his birthday and his name. He knows his daughter. Cranial nerves: PERRL. Pupils are miotic but reactive. Conjugate gaze. Ocular movements are full including superior gaze. Visual guthrie are intact to direct confrontational testing. Face symmetric w/ intact sensation. Palate elevates symmetrically. Tongue protrudes midline. Shoulder shrug is full. Motor examination, no pronator drift is observed. His strength is 5/5 and symmetric. Reflexes are diminished throughout, absent at the ankles. His toes are mute. No clonus. He has a length dependent loss to sensation to both temperature and vibration. His rapid alternating movements are slowed. His [id number] may be dysmetric, left greater than right. I did not test his gait, but the nurses have described it as him not taking steps on his own without some significant encouragement and it looks as though he does not know how to walk per the nurse. He has had multiple falls. DIAGNOSTICS: Noncontrasted head CT on 05/07/2017 was personally reviewed. There are no acute findings, although I do note atrophy at least in the frontal regions and temporal regions, and this may be diffuse. He has had toe cultures positive for theo and blood cultures on 04/08/2017 positive for pseudomonas and theo. His white count has been in the normal range during all of this illness with the exception of occasionally mildly low. Hemoglobin 13, hematocrit 40, platelets have been low, 64. Sodium 142, potassium 3.2, BUN has been normal to 25, creatinine 1.5 to 2.1, GFR 57 to 39, glucose 175. A1c 6.5. Calcium 8.4. Magnesium 1.5. Alkaline phosphatase mildly elevated. ALT and AST normal. Total bilirubin is mildly elevated. B12 498. Vitamin D 5.8. Folate 15.7. TSH 0.72. Free T4 1.59. His urinalysis on 05/05/2017 showed 200 protein and trace blood but otherwise was negative. His toxicology on admission was positive for oxycodone and benzodiazepines. I believe he has prescriptions for these. Review of recent records from [facility] also shows that he had a lumbar puncture on 04/14/2017. There were no white cells, 1 red cells, glucose 65, protein elevated at 287. VDRL, cryptococcus antigen, herpes DNA, meningitis and encephalitis PCR panel were all negative. A rheumatoid factor and IVETH screen were negative. Gram stain of the CSF from 04/14/2017 showed occasional white cells, no epithelial cells, no bacteria, and no yeast. Culture from the lumbar puncture was negative. ASSESSMENT AND PLAN: 62-year-old right-handed male with remote history of seizure disorder who has been in and out of the hospital recently with treatment for osteomyelitis and bacteremia with theo and pseudomonas. He has roughly during this timeframe developed change in his mental status as detailed above. 1. Encephalopathy. The patient has developed unusual behavioral changes that have been noticed over the last several weeks since his illness with mood swings and periods of intense sadness, perseveration regarding a cancer diagnosis that he does not have, auditory hallucinations, becoming more withdrawn and also having problems with his gait which may be an apraxia. The differential for him is broad. It seems to be have started temporally with the onset of his infectious process and treatment with antibiotics including Levaquin. This may all be related to this, although I believe the Levaquin may have been added later. A dementia process, whether more longstanding that family has not picked up on (now worsened with the ongoing infectious illness/treatment) vs a more recent and rapid one is possible, especially in light of the atrophy noted on CT. Re's encephalitis is a later consideration as well as other more rare processes such as autoimmune and paraneoplastic encephalitidies. I think the question of illicit drug use, especially with the methadone that showed up in the patient's urine drug screen while hospitalized at [facility] , is less likely a cause of what is going on. I am not sure how the methadone was there. Will start by ordering cranial MRI with and without contrast, a routine EEG given his h/o seizures, HIV given the very subtle low white counts transiently. I see RPR was ordered. Thyroid studies were ok. I will also recheck a UDS just to try to clarify this although, again, I do not think that that is what his problem is. A lumbar puncture at the start of this month was normal with no white cells, which is reasurring. Might consider repeating this depending on what the imaging shows and if felt clinically indicated. Could send labs for Re's later but would not start with that. Lastly, this could all be psychiatric illness, although he does not have a known history of psychiatric illness per the daughter. While it is in the consideration, we should r/o other processes first. Thank you for this consultation. We will follow. cc: Heena Ware MD MTDD
[2017-05-10] MEDS: APRESOLINE PO SCH ×3 (01:20→18:24)
[2017-05-10] MEDS: MYCAMINE 100 MG in NS 100 ML IV SCH (04:51)
[2017-05-10] MEDS: HUMULIN R SUBQ SCH ×4 (06:37→23:27)
[2017-05-10 07:33] LABS: IRON SATURATION 36 %; TIBC 210 ug/dL; TOTAL IRON 75 ug/dL (53-167); UNBOUND IRON 135 ug/dL (112-346)
--- NOTE | 2017-05-10 08:53 | PROGRESS NOTE ---
DATE: 05/10/2017 PRESENT ILLNESS: The patient has osteomyelitis of the left great toe. He also has an altered mental status. MEDICATIONS: Patient is receiving a combination of p.o. doxycycline and Levaquin and IV micafungin. The patient needs 3 more days of treatment to complete the treatment regimen for his infection. PHYSICAL EXAMINATION: Vital Signs: Temperature is 98.1 degrees, pulse 79, respirations 16, blood pressure 118/80. General: This is a somewhat ill-appearing, middle-aged male. He seems somewhat lethargic today. Head, Eyes, Ears, Nose, and Throat: He can hear my spoken words and see near objects. No drainage noted from the nose or ears. Neck: No meningismus. Lungs: Clear to auscultation. Cardiovascular: Heart rate is regular. Abdomen: Soft and nontender. Neurologic: As mentioned above, the patient is somewhat lethargic today. He has been sleeping in bed. He was arousable. He did move his extremities to request. There was no tremor. Extremities: The patient's left great toe is less swollen. It is not erythematous. The plantar ulcer is closed and there is no drainage coming from the plantar ulcer of the great toe. LAB AND X-RAY STUDIES: MRI of the brain shows atrophy and chronic ischemia. Patient's RPR was nonreactive. ASSESSMENT AND PLAN: As regarding the patient's osteomyelitis of the great toe, the patient will need 3 more days of the antibiotics. As regarding the patient's altered mental status, Dr. Ware has seen the patient and she and her partner, Dr. Saucedo, will be following the patient. COMORBIDITIES: Include diabetes mellitus, congestive heart failure, and end-stage renal disease. All to this, we need to add chronic ischemia in the central nervous system. cc: Blue Freeman MD
[2017-05-10] MEDS: TUSSIONEX LIQUID PO SCH ×2 (09:15→23:25)
[2017-05-10] MEDS: LOPRESSOR PO SCH ×2 (09:16→23:26)
[2017-05-10] MEDS: DOXYCYCLINE PO SCH ×2 (09:16→23:26)
[2017-05-10] MEDS: VITAMIN D PO SCH (09:16)
[2017-05-10] MEDS: CATAPRES PO SCH ×3 (09:16→18:24)
[2017-05-10] MEDS: LACTULOSE PO SCH ×2 (09:17→23:25)
[2017-05-10] MEDS: HEPARIN SUBQ SCH ×2 (09:17→23:26)
[2017-05-10] MEDS: ENTRESTO 24 MG-26 MG TABLET PO SCH ×2 (09:18→23:25)
[2017-05-10] MEDS: SANTYL OINT TOP SCH (09:19)
--- NOTE | 2017-05-10 13:56 | PROGRESS NOTE ---
DATE: 05/10/2017 SUBJECTIVE: Mr. Hylton appeared asleep, but he was easily waked by my calling his name. He was very briefly attentive and then seemed back to sleep. I discussed his recent medical history at length with attentive daughter at the bedside. I have reviewed the notes in the computer system. Daughter reports he was hobbled up with painful ulcers on the feet with unsteady gait, but otherwise was neurologically intact and she is certain he was cognitively intact as recently as 2 months ago. He was in the hospital briefly the 1st week of March and discharged in good condition. As recently as mother's today, he was neurologically intact, according to the daughter. He presented to the hospital in late March after having collapsed at home. Report was that he got up to the bathroom and either had a syncopal episode or tripped and fell. He did not feel well on admission, but was reported alert, speaking appropriately, answering questions, oriented. Over the next few days, he became delirious. There was not documented unconsciousness. EEG was not remarkable. Brain imaging has consistently been unremarkable. There was never any focal neurologic feature. He never had behavior consistent with shawn seizure. He seemed slowly improved in the hospital and was discharged to rehab. He came back to this hospital with poor attention, poor alertness. Daughter believes that he has never used illicit drugs. He has had opiate medicines prescribed for painful dysesthesia in the feet chronically. He has been taking benzodiazepines recently. Lyrica was added a few months ago. While he was hospitalized earlier, I think he may have had antipsychotic medicines briefly and he may have had antidepressant medicines, but I do not know how to check that and daughter is not certain. Current medicine list includes Lyrica, alprazolam, but no antidepressant or antipsychotic medicine. Other workup includes CSF last month showing elevated protein, but nothing remarkable otherwise. IMPRESSION: 1. Currently lethargic, with no focal neurologic features and no clinical evidence of increased intracranial pressure. 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 Lab work does not show anything that likely would be associated with encephalopathy. There has been some concern that significant depression has been playing a role. I think it would be reasonable to consider adding antidepressant medicine and/or antipsychotic medicine. Alternatively, might consider Psychiatry evaluation, prior to making any of those changes. 2. He seemed clearly to have an episode of delirium over a few days at [facility], [place] last month. Reason for that was never determined with certainty, but there was suspicion of drug effect. Daughter believes that it would not be in his character to use illicit drugs. Whatever part of his problem was related to intentional or unintentional drug mistake likely would have resolved long before now and I do not think current problem is drug related. 3. Daughter reports he did not feel well initially when Lyrica was added. I do not think this is a Lyrica effect, but I think it would be reasonable to hold Lyrica at least short term. If his discomfort is worse, we can resume Lyrica soon. I will order that. No other suggestion today. cc: MD MULUGETA Johnson III
[2017-05-10 17:00] LABS: UR AMPHETAMINES QUAL NONE DETECTED (NONE DETECT); UR BARBITUATES QUAL NONE DETECTED (NONE DETECT); UR BENZODIAZEPIN QUAL PRESUMPTIVE POSITIVE (NONE DETECT); UR CANNABINOIDS QUAL NONE DETECTED (NONE DETECT); UR COCAINE QUAL NONE DETECTED (NONE DETECT); UR METHADONE QUAL NONE DETECTED (NONE DETECT); UR OPIATES QUAL NONE DETECTED (NONE DETECT); UR OXYCODONE QUAL PRESUMPTIVE POSITIVE (NONE DETECT); UR PCP QUAL NONE DETECTED (NONE DETECT)
--- NOTE | 2017-05-10 17:22 | PROGRESS NOTE ---
DATE: 05/10/2017 SUBJECTIVE: Today Mr. Hylton referred to be doing fine. He was extremely emotional when I went in to see him. The and daughter were in the room at the time of the encounter. OBJECTIVE: Vital signs: Blood pressure is 115/75, pulse of 98, respirations 16, temperature 98.2 degrees. General: Ms. Hylton is a 62-year-old male. He is in bed, does not seems to be in any remarkable distress. HEENT: Mucosa is pink and moist. Anicteric. Acyanotic. Neck: Supple. Chest: Clear. Cardiovascular: Regular rate and rhythm. Abdomen: Soft. Extremities: No pedal edema. MUSIC VIDEO PRODUCER: Patient is awake. He is very labile in his emotion. Will bursts out and cry occasionally, but did not show any delirium. LABORATORY DATA: None for today. Ferritin is 89. ASSESSMENT: 1. Multiple falls, etiology unclear. I think is a combination of diabetic polyneuropathy and vitamin deficiencies. 2. History of candidemia. Patient is given micafungin. 3. Generalized weakness and deconditioning. 4. Chronic kidney disease. 5. Diabetes mellitus. 6. Depression with very labile emotions. We will start the patient on mirtazapine and Lexapro and consult psych to evaluate the patient. DISPOSITION: The patient is currently on antibiotics. We are pending Dr. Freeman. Patient is currently on antibiotics and I understand has 3 more days of this. My guess once that once finished we will be able to discharge him either home or to rehab to continue with physical rehabilitation. cc: Angel Alonso MD
[2017-05-10] MEDS ORDERED: REMERON PO SCH (21:00)
[2017-05-10] MEDS ORDERED: LEXAPRO PO SCH (21:00)
[2017-05-10] MEDS: XANAX PO SCH (23:25)
[2017-05-10] MEDS: LEVAQUIN PO SCH (23:26)
[2017-05-11] MEDS: MYCAMINE 100 MG in NS 100 ML IV SCH (01:45)
[2017-05-11] MEDS: APRESOLINE PO SCH ×2 (01:45→09:07)
[2017-05-11] MEDS: HUMULIN R SUBQ SCH ×3 (06:06→16:27)
[2017-05-11] MEDS: DOXYCYCLINE PO SCH (09:06)
[2017-05-11] MEDS: LACTULOSE PO SCH (09:06)
[2017-05-11] MEDS: HEPARIN SUBQ SCH (09:06)
[2017-05-11] MEDS: TUSSIONEX LIQUID PO SCH (09:06)
[2017-05-11] MEDS: SANTYL OINT TOP SCH (09:07)
[2017-05-11] MEDS: ENTRESTO 24 MG-26 MG TABLET PO SCH (09:07)
[2017-05-11] MEDS: LOPRESSOR PO SCH (09:07)
[2017-05-11] MEDS: CATAPRES PO SCH ×2 (09:07→13:20)
[2017-05-11] MEDS: VITAMIN D PO SCH (09:07)
[2017-05-11 09:48] LABS: HEPATITIS PROFILE ACUTE SEE COMMENTS
[2017-05-11 09:53] LABS: BASO% 0.2 % (0.0-0.8); EOS# 0.15 X1000 (0.0-0.7); EOS% 3.2 % (0.0-10.0); HEMATOCRIT 40.5 % (42.0-52.0); HEMOGLOBIN 13.5 g/dL (14.0-18.0); LYMPH# 1.28 X1000 (1.2-3.4); LYMPH% 27.4 % (20.5-51.1); MANUAL DIFF NEEDED? YES; MCH 30.9 PG (27-31); MCHC 33.3 g/dL (33-37); MCV 92.7 FL (81-99); MONO# 0.36 X1000 (0.11-0.59); MONO% 7.7 % (1.7-9.3); NEUT% 61.5 % (42.2-75.2); PLT 60 X1000 (130-400); RBC 4.37 XMIL (4.7-6.1)
[2017-05-11 10:04] LABS: EOS 4 % (1-10); LYMPHS 23 % (21-51); MONO 8 % (1-9)
[2017-05-11 10:11] LABS: LARGE PLATELETS 2+
[2017-05-11 10:18] LABS: HIV ANTIBODY SCREEN SEE COMMENTS
[2017-05-11 10:24] LABS: CALCIUM 8.7 mg/dL (8.8-10.2); POTASSIUM 3.9 mmol/L (3.5-5.1)
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
[2017-05-11 12:59] VITALS: BP 132/87
--- NOTE | 2017-05-11 14:01 | EEG REPORT ---
DATE: 05/09/2017 COMMENT: This is a digitally recorded EEG on a 62-year-old patient with possible recent delirium, more recent altered responsiveness and alertness, possible depression, possible cognitive impairment. FINDINGS: During waking, poorly sustained 10 Hz posterior rhythm is present bilaterally with uncertain reactivity to eye opening. Background contains polymorphic and rhythmic theta frequencies over the frontal and central regions symmetrically. There is minimal frontal slowing into the delta range but that is not persistent. Muscle contraction artifact was present at times but did not hinder interpretation. Photic stimulation did not significantly alter the record. No definite epileptiform discharge was identified. INTERPRETATION: Normal EEG. CORRELATION: There is nothing on this record to suggest a specific explanation for his clinical syndrome. cc: MD Heena Johnson III, MD
--- NOTE | 2017-05-11 22:19 | DISCHARGE SUMMARY ---
ADMISSION DATE: 05/05/2017 DISCHARGE DATE: 05/11/2017 SUBJECTIVE: Today, Mr. Hylton refers to be doing fine. He is going to be discharged. DISPOSITION: Home with home health. CONSULTATIONS DURING THIS ADMISSION: 1. Infectious Disease was consulted. Patient was seen by Dr. Freeman. 2. Neurology was consulted. Patient was seen by Dr. Ware and followed up by Dr. Saucedo. INVASIVE PROCEDURES DONE: None. IMAGING STUDIES OF SIGNIFICANCE: 1. CT scan of the head and cervical spine was done. There was no acute disease found. 2. CT scan of abdomen and pelvis was done which shows cardiomegaly, pulmonary edema, pleural effusions, chronic cholecystitis. 3. Brain MRI was done which showed atrophy and chronic ischemic changes. No acute disease. ADMISSION DIAGNOSES: 1. Systolic and diastolic left ventricular dysfunction. 2. Chronic kidney disease 2-3. 3. Diabetes mellitus. 4. Osteomyelitis. DIAGNOSES AT THE TIME OF DISCHARGE: 1. Multiple falls. Etiology unclear. Presumed to be a combination of diabetic polyneuropathy and vitamin deficiencies. 2. History of candidemia. Patient has been given complete therapy on micafungin. 3. Osteomyelitis to the Lt big toe. The patient has also been completely treated with IV antibiotics. 4. Generalized weakness and deconditioning. 5. Chronic kidney disease 3A. 6. Diabetes mellitus stable. 7. Depression with very labile emotions. The patient has been evaluated by [facility] and they will follow him up on an outpatient basis. 8. Vitamin D deficiency. DISCHARGE MEDICATIONS: 1. Albuterol p.r.n. 2. Cyclobenzaprine. 3. Metoprolol 25 mg b.i.d. 4. Insulin glargine. 5. Entresto 1 tablet b.i.d. 6. Clonidine 0.1 t.i.d. 7. 25 mg p.o. q.8. 8. Mirtazapine 50 mg p.o. at bedtime. 9. Cholecalciferol 2000 units daily. 10. Lexapro 20 mg daily. PRESENTING COMPLAINT: Fall. HISTORY OF PRESENTING COMPLAINT: Mr. Hylton is a 62-year-old, male who has been in and out of the hospital for the past 6 weeks. Initially he presented to [place] where he was attended to and stabilized, and eventually discharged to [facility]. However over there he failed and was brought in here, evaluated in the emergency department and admitted for further medical care. HOSPITAL COURSE: Patient did pretty well during the hospital stay. We consulted ID. Patient was continued on his IV antibiotics for the osteomyelitis of the left great toe and also for history of candidemia. In terms of his mentation, it was felt that Neurology evaluate the patient. A consultation was placed. Patient was seen by both Dr. Ware and Dr. Saucedo. An EEG was done which was unremarkable. From Dr. Saucedo's notes he did not think there was anything remarkable from a neurological standpoint and recommended that the patient get psychiatric evaluation. [facility] was consulted. Patient was started on mirtazapine and Lexapro. [facility] recommends that he does not need any inpatient therapy and that they will follow him up on an outpatient basis. Today he is much more stable. Of note, I spoke with the and the daughter of Mr. Hylton yesterday. And today there is another set of family in there with him including a girlfriend , a little boy said to be the son and another daughter. I guess he had some social issues that will be addressed by Social Work and other healthcare providers on an outpatient basis. At the time of discharge, there are no pending labs or imaging studies. Patient has been evaluated by PT and they have recommended a front wheel walker. He will be discharged with that medical billing coordinator. DISCHARGE VITAL SIGNS: Today his blood pressure is 132/87, pulse is 89, respirations 15, temperature is 97.7 degrees. Patient is saturating 99% on room air. DISPOSITION: He is going to be discharged home with home health. TIME SPENT FOR DISCHARGE: 38 minutes. cc: Angel Alosno MD [facility]
== END 2017-05-11 16:36 | disposition home health service (06) ==
LOC: ED 13:39 → SUATTDRO 18:48 → 3N 18:48
PROVIDERS: ATTEND Internal Medicine

== ENCOUNTER 2017-05-28 10:41 | Inpatient (IN) ==
[2017-05-28] MEDS ORDERED: DUONEB (A & A) INH ONE (10:47)
--- NOTE | 2017-05-28 11:23 | Diag Imaging Result Doc PS360 ---
EXAM: CHEST-PORTABLE HISTORY: AMS TECHNIQUE: Portable AP COMPARISON: 05/08/2017 FINDINGS: Poor inspiratory effort. I believe there are small pleural effusions in addition to basilar atelectasis. There may be underlying infiltrates as well. Heart is not enlarged. Interval removal of the right jugular line. No pneumothorax. IMPRESSION: Poor inspiratory effort with bibasilar atelectasis and possibly small underlying infiltrates. Electronically signed by Severo Cherry 05/28/2017 11:21 AM
--- NOTE | 2017-05-28 11:39 | Diag Imaging Result Doc PS360 ---
EXAM: HEAD W/O CONTRAST HISTORY: AMS TECHNIQUE: CT of the head without contrast with dose reduction (clarity.) COMMENT: The current study is compared without of 05/05/2017. Several lacunae are present in the marybeth and lower midbrain. There is generalized cerebral atrophy. Some periventricular white matter lucency is present particularly in the frontal lobes. There is calcification in the globus pallidus on the right and in both internal carotid arteries and vertebral arteries. Overall, the appearance has not changed since the previous study. IMPRESSION: Chronic microvascular changes, atherosclerosis and cerebral atrophy. No evidence of acute disease. Electronically signed by Collin Bautista 05/28/2017 11:37 AM
[2017-05-28 11:43] LABS: ALLEN TEST YES; BE -2.2 mmoll (-3.0-3.0); BLOOD TYPE ARTERIAL; DRAW SITE R RADIAL; METHB 0.8 % (0.0-1.5); O2(CT) 17.3 mL/dL (15.0-23.0); PCO2(98.6) 44 mmHg (35-45); PO2(98.6) 90 mmHg (60-100); SAMPLE BLOOD; SAO2 97.4 % (95.0-100.0); THB 12.9 g/dL (11.5-17.4); pH(98.6) 7.34 (7.35-7.45)
[2017-05-28 11:44] LABS: MODALITY CANNULA
[2017-05-28] MEDS ORDERED: ROCEPHIN 1 GM/NS 1 GM/50 ML IVPB IV ONE (12:24)
--- NOTE | 2017-05-28 12:35 | EKG Report ---
Test Performed on : 05/28/2017 10:42:58 AM Test Reason : AMS Blood Pressure : / mmHG Vent. Rate : 090 BPM Atrial Rate : 090 BPM P-R Int : 200 ms QRS Dur : 106 ms QT Int : 400 ms P-R-T Axes : 041 013 219 degrees QTc Int : 489 ms Sinus rhythm. with frequent premature ventricular complexes. Possible Left atrial enlargement ST \T\ T wave abnormality, consider lateral ischemia Prolonged QT Abnormal ECG When compared with ECG of 27-MAY-2017 17:11, (Unconfirmed) No significant change was found Unconfirmed Result
[2017-05-28 13:31] LABS: BASO% 0.2 % (0.0-0.8); EOS# 0.04 X1000 (0.0-0.7); HEMATOCRIT 38.5 % (42.0-52.0); HEMOGLOBIN 12.8 g/dL (14.0-18.0); LYMPH# 1.64 X1000 (1.2-3.4); MANUAL DIFF NEEDED? NO; MCH 30.8 PG (27-31); MCHC 33.2 g/dL (33-37); MCV 92.8 FL (81-99); MONO# 0.42 X1000 (0.11-0.59); NEUT% 49.8 % (42.2-75.2); PLT 95 X1000 (130-400); RBC 4.15 XMIL (4.7-6.1)
[2017-05-28 13:33] LABS: INR 1.21; PROTIME 12.9 Seconds (9.2-11.7); PTT 25.7 Seconds (22.0-36.0)
--- NOTE | 2017-05-28 13:36 | PROVIDER DOCUMENTATION ---
This chart was entered by Elvia Willard Scribe, acting as scribe for Joey Sauceda MD. HPI-General Adult - General Stated Complaint: AMS/ SOB Time Seen by Provider: 05/28/17 10:46 Source: patient, EMS Allergies/Adverse Reactions: Patient Allergies Allergy/AdvReac Type Severity Reaction Status Date / Time No Known Allergies Allergy Verified 05/28/17 12:55 Home Medications: Home Medication List Medication Instructions Recorded Confirmed Last Taken Type Cyclobenzaprine HCl 10 mg PO BID 04/01/17 05/28/17 05/28/17 08:00 History Insulin Glargine,Hum.rec.anlog 24 unit SQ HS 04/13/17 05/28/17 05/27/17 08:00 History [Lantus Solostar] Metoprolol [Lopressor] 25 mg PO BID tablet 04/23/17 05/28/17 05/28/17 08:00 Rx Escitalopram [Lexapro] 20 mg PO QHS #60 tablet 05/11/17 05/28/17 05/28/17 08:00 Rx Mirtazapine [Remeron] 15 mg PO QHS #60 tablet 05/11/17 05/28/17 05/27/17 23:00 Rx LISINOpril [Prinivil] 10 mg PO DAILY 05/27/17 05/28/17 05/28/17 08:00 History Sacubitril/Valsartan [Entresto 49 1 tab PO BID 05/27/17 05/28/17 05/28/17 08:00 History mg-51 mg Tablet] Alprazolam [Xanax] 2 mg PO HS 05/28/17 05/28/17 05/27/17 23:00 History Cholecalciferol (Vitamin D3) 1,000 unit PO DAILY 05/28/17 05/28/17 05/28/17 08: 00 History [Vitamin D3] - History of Present Illness -Gen Adult Nature of Presenting Problems: 62 yo M presents to the ER with complaint of SOB and AMS. Pt's home health nurse called, this was her first day so she could not give information on what baseline is. On EMS arrival room air O2 sat was 82, pupils were pinpoint, gave 2 of narcan. Pt was oriented and following commands in EMS but upon arrival A& O x0 and partially following commands. Associated Symptoms: reports: shortness of breath, weakness Review of Systems - Adult - REVIEW OF SYSTEMS - ADULT ROS:: limited per condition Constitutional: denies: chills, fever Eyes: reports: no symptoms reported Ears, Nose, Mouth & Throat: reports: no symptoms reported Cardiovascular: denies: chest pain, palpitations Respiratory: reports: shortness of breath. denies: cough Gastrointestinal: denies: abdominal pain, diarrhea, nausea, vomiting Genitourinary: reports: no symptoms reported Musculoskeletal: reports: no symptoms reported Integumentary: reports: no symptoms reported Neurological: reports: no symptoms reported Psychiatric: reports: no symptoms reported Endocrine: reports: no symptoms reported Hematologic/Lymphatic: reports: no symptoms reported Allergic/Immunologic: reports: no symptoms reported All Other Systems: Reviewed and Negative Past History - Adult - PAST MEDICAL HISTORY-ADULT Review of Records: reports: Nursing Assessment Review, Medications Reviewed Cardiovascular: reports: CHF, HTN Musculoskeletal: reports: arthritis Neurological: reports: Seizures/Epilepsy, other (NEUROPATHY) Psychiatric: reports: depression Endocrine/Immune: reports: Diabetes, other (neuropathy) - PRIOR SURGERIES/PROCEDURES Surgical/Procedure History: reports: orthopedic (extremity), other (right 5th toe amputation) - IMMUNIZATION STATUS Childhood Immunizations: See Nurse Assessment Flu Vaccine: See Nurse Assessment Physical Exam-General - PHYSICAL EXAM-ADULT Initial Vital Signs Reviewed: Yes - CONSTITUTIONAL General Appearance: no apparent distress, lethargic, slow to respond - EYES Eyes: PERRL/EOMI, pink conjunctivae - HEAD, EARS, NOSE, MOUTH & THROAT HENMT: normocephalic/atraumatic, normal ENT inspection, TMs normal, pharynx normal - NECK Neck: supple, normal inspection - RESPIRATORY Respiratory: no respiratory distress, no accessory muscle use - CARDIOVASCULAR Cardiovascular: normal peripheral pulses, regular rate, rhythm. negative: no edema - GASTROINTESTINAL (ABDOMEN) Abdominal Exam: normal bowel sounds, non tender, soft - MUSCULOSKELETAL Back Exam: no CVA tenderness, no vertebral tenderness Extremity: non-tender, normal gait - SKIN Integumentary: warm/dry, swelling (+2 pitting edema bilat LE) - NEUROLOGIC Neurologic: grossly normal. negative: facial droop - PSYCHIATRIC Psych/Mental Status: disoriented x 3. negative: normal thought content Progress - PLAN OF CARE/RESULTS Progress/Plan/Lab Results: Vital Signs - 8 hr 05/28/17 10:50 05/28/17 12:00 05/28/17 13:00 Temperature 98 F Pulse Rate 83 86 81 Respiratory Rate 20 21 22 Blood Pressure 164/114 151/119 149/118 O2 Sat by Pulse Oximetry 90 L 92 L 97 Laboratory Results - last 24 hr 05/28/17 05/28/17 05/28/17 11:35 12:15 12:15 WBC 4.21 L RBC 4.15 L Hgb 12.8 L Hct 38.5 L MCV 92.8 MCH 30.8 MCHC 33.2 RDW Std Deviation 17.2 H Plt Count 95 L MPV Not Reportable Immature Gran % (Auto) 0.0 Neut % (Auto) 49.8 Lymph % (Auto) 39.0 Highlands % (Auto) 10.0 H Eos % (Auto) 1.0 Baso % (Auto) 0.2 Immature Gran # (Auto) 0.00 Neut # (Auto) 2.10 Lymph # (Auto) 1.64 Highlands # (Auto) 0.42 Eos # (Auto) 0.04 Baso # (Auto) 0.01 PT INR PTT (Actin FS) Specimen Type ARTERIAL Sample Site R RADIAL pH 7.34 L pCO2 44 pO2 90 HCO3 23.1 Base Excess -2.2 Oxyhemoglobin 94.8 L ABG O2 Sat (Calculated) 17.3 ABG O2 Saturation 97.4 ABG Carboxyhemoglobin 1.90 ABG Methemoglobin 0.8 Lalo Test YES A-a O2 Difference 55.0 Total Hemoglobin 12.9 Lactate 1.40 Liter Flow 2.0 Blood Gas Modality CANNULA FiO2 % 28.0 Troponin T Plasma Lactate 2.2 05/28/17 05/28/17 12:15 12:15 WBC RBC Hgb Hct MCV MCH MCHC RDW Std Deviation Plt Count MPV Immature Gran % (Auto) Neut % (Auto) Lymph % (Auto) [place] % (Auto) Eos % (Auto) Baso % (Auto) Immature Gran # (Auto) Neut # (Auto) Lymph # (Auto) [place] # (Auto) Eos # (Auto) Baso # (Auto) PT 12.9 H INR 1.21 PTT (Actin FS) 25.7 Specimen Type Sample Site pH pCO2 pO2 HCO3 Base Excess Oxyhemoglobin ABG O2 Sat (Calculated) ABG O2 Saturation ABG Carboxyhemoglobin ABG Methemoglobin Lalo Test A-a O2 Difference Total Hemoglobin Lactate Liter Flow Blood Gas Modality FiO2 % Troponin T 0.030 Plasma Lactate Orders Category Date Time Status Cardiac Monitoring DIRECTED Care 05/28/17 10:46 Active Finger Stick Blood Sugar (ED) DIRECTED Care 05/28/17 10:46 Active Oxygen Therapy- ED Nursing DIRECTED Care 05/28/17 10:46 Active Saline Loc NOW Care 05/28/17 10:46 Active CHEST-PORTABLE [RAD] Stat Exams 05/28/17 10:46 Completed HEAD W/O CONTRAST [CT] Stat Exams 05/28/17 10:47 Completed ABG [RESP] Routine Lab 05/28/17 11:35 Completed ALCOHOL BLOOD Stat Lab 05/28/17 12:15 Received CBC WITH ELECTRONIC DIFF [HEME] Stat Lab 05/28/17 12:15 Completed CK PROFILE [SP CHEM] Stat Lab 05/28/17 12:15 Received COMPREHENSIVE METABOLIC PANEL [CHEM] Stat Lab 05/28/17 12:15 Received LACTATE, PLASMA [CHEM] Stat Lab 05/28/17 12:15 Completed PRO B-NATRIURETIC PEPTIDE Stat Lab 05/28/17 12:15 Received PROTIME WITH INR [COAG] Stat Lab 05/28/17 12:15 Completed PTT [COAG] Stat Lab 05/28/17 12:15 Completed TROPONIN T Stat Lab 05/28/17 12:15 Completed URINALYSIS W/POSS RFLX CULT-1 [URINALYSIS] Stat Lab 05/28/17 10:46 Uncollected URINE DRUG SCREEN Stat Lab 05/28/17 10:46 Uncollected Albuterol 2.5MG/Ipratrop 0.5MG [Duoneb (A & A)] Med 05/28/17 10:47 Discontinued 3 ml INH NOW ONE CefTRIAXONE 1 GM/NS [Rocephin 1 gm/Ns] Med 05/28/17 12:24 Discontinued 1 gm in 50 ml IV NOW CefTRIAXONE 1 GM/NS [Rocephin 1 gm/Ns] Med 05/29/17 12:30 Active 1 gm in 50 ml IV Q24H Aerosol Treatments Routine Oth 05/28/17 10:47 Active Aerosol Treatments Stat Oth 05/28/17 10:47 Active Pulse Oximetry Stat Oth 05/28/17 10:46 Active EKG [EKG] Stat Ther 05/28/17 10:46 Draft Transfer/Admit Order [TRANSFER] Routine Transfer 05/28/17 13:25 Ordered Laboratory Tests 05/28/17 05/28/17 05/28/17 11:35 12:15 12:15 WBC 4.21 L RBC 4.15 L Hgb 12.8 L Hct 38.5 L MCV 92.8 MCH 30.8 MCHC 33.2 RDW Std Deviation 17.2 H Plt Count 95 L MPV Not Reportable Immature Gran % (Auto) 0.0 Neut % (Auto) 49.8 Lymph % (Auto) 39.0 [place] % (Auto) 10.0 H Eos % (Auto) 1.0 Baso % (Auto) 0.2 Immature Gran # (Auto) 0.00 Neut # (Auto) 2.10 Lymph # (Auto) 1.64 [place]lands # (Auto) 0.42 Eos # (Auto) 0.04 Baso # (Auto) 0.01 PT INR PTT (Actin FS) Specimen Type ARTERIAL Sample Site R RADIAL pH 7.34 L pCO2 44 pO2 90 HCO3 23.1 Base Excess -2.2 Oxyhemoglobin 94.8 L ABG O2 Sat (Calculated) 17.3 ABG O2 Saturation 97.4 ABG Carboxyhemoglobin 1.90 ABG Methemoglobin 0.8 Lalo Test YES A-a O2 Difference 55.0 Total Hemoglobin 12.9 Lactate 1.40 Liter Flow 2.0 Blood Gas Modality CANNULA FiO2 % 28.0 Troponin T Plasma Lactate 2.2 05/28/17 05/28/17 12:15 12:15 WBC RBC Hgb Hct MCV MCH MCHC RDW Std Deviation Plt Count MPV Immature Gran % (Auto) Neut % (Auto) Lymph % (Auto) [place] % (Auto) Eos % (Auto) Baso % (Auto) Immature Gran # (Auto) Neut # (Auto) Lymph # (Auto) [place] # (Auto) Eos # (Auto) Baso # (Auto) PT 12.9 H INR 1.21 PTT (Actin FS) 25.7 Specimen Type Sample Site pH pCO2 pO2 HCO3 Base Excess Oxyhemoglobin ABG O2 Sat (Calculated) ABG O2 Saturation ABG Carboxyhemoglobin ABG Methemoglobin Lalo Test A-a O2 Difference Total Hemoglobin Lactate Liter Flow Blood Gas Modality FiO2 % Troponin T 0.030 Plasma Lactate Result Diagrams: 05/28/17 12:15 - EKG 1 Time of EKG reading by physician:: 10:42 EKG Read and Signed by:: oJey Sauceda EKG Interpretation (*Must complete 3 of following elements*): Abnormal Rate: 90 Rhythm: normal sinus rhythm QRS: PVC's TX Interval: prolonged Comments: prolonged QT, no STEMI - CONSULTS/PCP/HOSPITALIST Notification #1 *Consult/PCP/Hospitalist*: Hospitalist Dr Wang Time Discussed: 12:09 Consult Disposition: Admit Departure - Departure Date of Disposition Decision: 05/28/17 Time of Disposition Decision: 13:35 DIAGNOSIS: Abnormal EKG Altered mental status Qualifiers: Altered mental status type: unspecified Qualified Code(s): R41.82 - Altered mental status, unspecified Disposition: ADMITTED INPATIENT 09 Certified Medical Emergency: Emergent Condition: Fair Referrals and Follow-Ups: Mitch Horowitz MD [Primary Care Provider] - - Critical Care Note This patient required my direct & personal management of CC.: No This chart was documented by the indicated scribe, (Elvia Willard Scribe) and accurately reflects the services I performed and decisions made by me, Joey Sauceda MD, as attested by the provider's signature.
[2017-05-28 13:37] LABS: ALBUMIN 3.7 g/dL (3.5-5.0); CALCIUM 8.9 mg/dL (8.8-10.2); POTASSIUM 4.6 mmol/L (3.5-5.1); TOTAL BILIRUBIN 1.41 mg/dL (0.20-1.00); TOTAL PROTEIN 6.5 g/dL (6.3-8.3)
[2017-05-28] MEDS ORDERED: TYLENOL PO PRN (14:07)
[2017-05-28] MEDS ORDERED: APRESOLINE IV PRN (14:26)
--- NOTE | 2017-05-28 14:51 | Diag Imaging Result Doc PS360 ---
EXAM: CT THORAX W/O CONTRAST HISTORY: pneumonia/chf TECHNIQUE: Dose reduction protocol COMPARISON: 05/05/2017 FINDINGS: There are small bilateral pleural effusions measuring between 1.5 and 2.5 cm posteriorly and inferiorly in the midline. The right effusion is larger than the left. These have slightly increased in size compared to the prior study. The heart remains enlarged. Moderate atherosclerosis. There is central vascular distention. There are several calcified mediastinal and hilar lymph nodes and granuloma similar to the prior exam. Atelectasis is present bilaterally and more pronounced in the lower lobes. No air bronchograms. No bronchiectasis. IMPRESSION: Findings most likely due to congestive failure rather than pneumonia. Electronically signed by Severo Cherry 05/28/2017 2:49 PM
[2017-05-28] MEDS ORDERED: LEVAQUIN 750 MG in NS 150 ML IV SCH (15:00)
--- NOTE | 2017-05-28 15:38 | CONSULTATION ---
DATE OF CONSULTATION: 05/28/2017 INDICATION: Congestive heart failure. HISTORY OF PRESENT ILLNESS: Mr. Hylton is a 61-year-old black male with a history of nonischemic cardiomyopathy with most recent ejection fractions around 30%. He apparently has been in the hospital multiple times over the last 3 months or so and his most recent presentation was preceded by a visit to the ER yesterday evening at which time he was discharged around 10 p.m. He re- presented with complaints of shortness of breath and just generalized diffuse weakness. He is not able to provide much history as the patient seems to be speaking very weakly. He seems oriented, but is not able to provide much history. Most of the history is provided via his girlfriend. He is not having any chest pain. He has been compliant with his medications. He does not seem to have much of an issue with sodium indiscretion in his diet per her. There has been some orthopnea and generalized diffuse weakness. Notably, the patient uses a walker for his ambulation secondary to multiple recent hospitalizations resulting in significant level of debility. No recent chest pain. Apparently he has been treated for a fungal-related osteomyelitis with recent admissions in March and April. PAST MEDICAL HISTORY: 1. Significant for nonischemic cardiomyopathy. Identified via echocardiogram. Most recent EF is 30% and has apparently had cardiac catheterizations that were unremarkable with no evidence of coronary disease. 2. Hypertension. 3. Hyperlipidemia. 4. Diabetes. 5. Chronic kidney disease with baseline creatinines around 2. 6. Reflux disease. 7. History of seizure disorder. 8. Chronic pain. 9. Osteoarthritis. 10. Osteomyelitis of the ankle. SOCIAL HISTORY: He is currently on disability. His girlfriend is present at bedside. No current alcohol use. FAMILY HISTORY: Brother had a history of coronary bypass. REVIEW OF SYSTEMS: A 10 system review of systems is negative except for those mentioned in HPI. PHYSICAL EXAMINATION: Vital signs: Afebrile, heart rate is 79, blood pressure 143/114. General: No acute distress. HEENT: Oropharynx is moist. Normal dentition. Eye examination is pink conjunctivae. White sclerae. Neck: Examination shows no obvious thyromegaly or thyroid tenderness. Cardiovascular: He sounds to be in a regular rate and rhythm with no obvious murmurs. He has trace to 1+ lower extremity edema up to roughly the mid zavala. His distal lower extremities are very cool to the touch. His JVP does appear to be elevated. His chest examination has very poor inspiratory effort. No increased work of breathing. Relatively clear, but again a very poor quality examination. Abdomen: Soft, nontender, nondistended. No obvious organomegaly. Skin: Warm and dry throughout without any rashes with the exception of the coolness to the distal extremities. Psychiatric: He has a somewhat depressed affect. He seems oriented, but is not very alert. Neurological: He is nonfocal. He seems to be able to move all extremities. PERTINENT DATA: He had a head CT performed demonstrating chronic microvascular changes. No evidence of acute findings. Chest x-ray demonstrated a poor inspiratory effort with bibasilar atelectasis and possible small underlying infiltrates. He had an EKG showing sinus rhythm. Multiple PVCs are noted. He has T-wave inversions laterally as well as somewhat diffusely. His laboratory data shows a white count of 4.2, hematocrit 38.5, his platelet count is 95,000. His sodium is 143, potassium 4.6, his BUN is 32, creatinine is 2. His T-bilirubin is 1.4. ProBNP is 20,410. ASSESSMENT: Acute on chronic systolic heart failure. PLAN: He is being admitted via the hospitalist service. I will place him on IV Lasix at 40 mg IV b.i.d. I will switch his metoprolol to Coreg 3.125 b.i.d. and I will increase his Entresto to 97/103. He will be getting repeat chemistries during this hospitalization. I would likely consider addition of hydralazine or nitrates in the future as well as the possibility of adding in Aldactone. Hopefully, we can start diuresing the patient and get him on a more appropriate blood pressure and heart failure regimen. I would not repeat the echocardiogram given that he had 1 recently in April that seems consistent with old demonstrating an EF of around 25-30%. cc: Devin Nuñez MD
[2017-05-28] MEDS: HUMULIN R SUBQ SCH ×2 (16:58→20:26)
[2017-05-28] MEDS: DUONEB (A & A) INH SCH ×3 (17:33→23:29)
[2017-05-28] MEDS: PULMICORT INH SCH (19:02)
[2017-05-28] MEDS ORDERED: INSULIN PEN NEEDLES ONE (20:05)
[2017-05-28] MEDS: COREG PO SCH (20:25)
[2017-05-28] MEDS: LANTUS SUBQ SCH (20:26)
[2017-05-28] MEDS: ENTRESTO 97 MG-103 MG TABLET PO SCH (20:26)
[2017-05-28 21:00] LABS: URINE CULTURE NEEDED? NO; URINE MICRO REVIEW NEEDED? NO; URINE SOURCE CLEAN CATCH
[2017-05-28] MEDS ORDERED: LOPRESSOR PO SCH (21:00)
[2017-05-28] MEDS ORDERED: LASIX IV SCH (21:00)
[2017-05-28] MEDS ORDERED: HEPARIN SUBQ SCH (21:00)
[2017-05-28] MEDS ORDERED: ENTRESTO 49 MG-51 MG TABLET PO SCH (21:00)
[2017-05-28 21:09] LABS: BILIRUBIN URINE NEGATIVE (NEGATIVE); BLOOD URINE SMALL (NEGATIVE); COLOR YELLOW; GLUCOSE URINE NEGATIVE (NEGATIVE); LEUKOCYTES URINE NEGATIVE (NEGATIVE); NITRITE URINE NEGATIVE (NEGATIVE); PROTEIN URINE 300 mg/dL (NEGATIVE); SP GRAVITY URINE 1.015; TURBIDITY URINE CLEAR (CLEAR); UR EPITHELIAL CELLS <10 /HPF (<10); URINE BACTERIA NEGATIVE /HPF; URINE RBC <10 /HPF (<10); URINE WBC <10 /HPF (<10); UROBILINOGEN URINE NORMAL (NORMAL)
--- NOTE | 2017-05-28 21:15 | HISTORY AND PHYSICAL ---
PRIMARY CARE PROVIDER: Dr. Mitch Horowitz. CHIEF COMPLAINT: Shortness of breath. Coughing with liquids. Frontal headache for 3 days and confusion. HISTORY OF PRESENT ILLNESS: Mr. Ryan Hylton is a 62-year-old male, who is well known to our service with frequent admissions and has a medical history of systolic and diastolic left ventricular dysfunction, CKD stage 3, diabetes mellitus, osteomyelitis, who had a recent admission in a rehab facility and a recent admission here for the left toe osteomyelitis in which he received a round of IV antibiotics. It was noted at that time he did have generalized weakness and deconditioned. According to his girlfriend of 15 years who was at the bedside, states that for the last 2 days she states he has had increased shortness of breath. She noticed that when he swallows, he has coughing with liquids. She states that they were also seen here in the ER last night with a frontal headache that he has had for 3 days, along with confusion. He is actually oriented to name and year. He was confused to place. All extremities were equal in strength, but he was very lethargic at this time. When asked about pain, he did state that he had some lower abdominal pain. He had also just had a bowel movement that was yellow and loose in color. Chest x-ray reveals that he has bilateral bibasilar atelectasis versus infiltrate. Although his white blood cell count is normal and he is afebrile, there is concern for aspiration given his coughing with liquids and his recent hospitalization stays. Head CT was obtained and there were no acute findings. It did show chronic microvascular changes, some atherosclerosis and cerebral atrophy. We will admit to [facility], give him some oxygen as room air saturations were 86-88%, so placed on 2 L nasal cannula. We will do nebulizers, antibiotics, physical therapy for deconditioning and wound care consult for several skin tears noted in bilateral lower extremities. PAST MEDICAL HISTORY: 1. Systolic and diastolic left ventricular dysfunction. 2. Chronic kidney disease stage 3. 3. Diabetes mellitus type 2. 4. Osteomyelitis. 5. Multiple falls. 6. History of candidemia. 7. Osteomyelitis to the left big toe. 8. Depression with labile emotions. 9. Vitamin D deficiency. 10. Pulmonary artery hypertension. 11. Peripheral neuropathy. 12. Seizures as a child. 13. Hypertension. SURGICAL HISTORY: Right arm, right leg and right hip surgery. Toe amputation on the left foot. Penile implant. SOCIAL HISTORY: Denies tobacco, alcohol or illicit drug use. FAMILY HISTORY: Noncontributory. ALLERGIES: No known drug allergies. HOME MEDICATIONS: Xanax 2 mg p.o. nightly, vitamin D3 1000 units p.o. daily, cyclobenzaprine HCL 10 mg p.o. twice daily, Lexapro 20 mg p.o. nightly, insulin 24 units subcutaneous nightly, lisinopril 10 mg p.o. daily, metoprolol 25 mg p.o. twice daily, Remeron 15 mg p.o. nightly, Entresto 1 tab p.o. twice daily. REVIEW OF SYSTEMS: Did complain of some abdominal pain, but all were negative except for those mentioned in above HPI. A 14 point review obtained. PHYSICAL EXAMINATION: VITAL SIGNS: Temperature 98 degrees, heart rate 81, respiratory rate 22, blood pressure 149/118, O2 saturation 97% on 2 L nasal cannula. He is 6 feet 3 inches tall, 220 pounds with BMI 27.5. GENERAL: Ms. Hylton is a 62-year-old male, he is in no acute distress. He is actually very drowsy and answers most questions appropriately with stimulation to stay awake. HEENT: Atraumatic, normocephalic. Pupils equal, round, reactive to light. Extraocular movements were intact. Mucous membranes are moist. NECK: No JVD or carotid bruits noted. CARDIOVASCULAR: S1, S2. Regular rate and rhythm. No rubs, gallops, murmurs. PULMONARY: Clear to auscultation bilateral breath sounds. Mild crepitations in the bilateral posterior bases with decreased inspirations. No accessory muscle use or work of breathing noted. Currently on 2 L nasal cannula. GI: Soft, nontender, nondistended. Positive bowel sounds x4. EXTREMITIES: +1 dorsalis and +1 radial pulses. No edema noted. SKIN: Warm, dry. Multiple skin tears noted bilateral lower extremities. EXTREMITIES: The left great toe ulcer area appears to be healing. There was a palpable knot located to the left of the cervical spine that was not fixed. It was able to move. NEUROLOGIC: Oriented to name and year. Disoriented to place. Moves all extremities equally and follows commands. LABORATORY DATA: White blood cells 4000, hemoglobin 12, hematocrit 38, platelet count 95,000. INR 1.21, PTT is 25.7. Arterial blood gases: PH 7.434, pCO2 44, PO2 90, bicarb 23, base excess - 2.2, saturation 95%. Lactate 1.4. This is on 2 L nasal cannula. Serum lactate is 2.2, sodium 143, potassium 4.6, BUN 32, creatinine 2, glucose 161, calcium 8.9, bilirubin is 1.41, AST 34, ALT 29. CK is 108, troponin 0.03. ProBNP 20,410. Alcohol level 0. IMAGING: Chest x-ray: Poor inspiratory effort with bibasilar atelectasis and possibly small underlying infiltrate. Head CT: Chronic microvascular changes. Atherosclerosis and cerebral atrophy. No evidence of acute disease. EKG: Sinus rhythm with PVCs and left atrial enlargement. QTc 489. ASSESSMENT/PLAN: 1. Healthcare-associated pneumonia with possible aspiration pneumonia. We will do Rocephin and Levaquin. Transfer to [facility]. We will do oxygen and nebulizers. 2. Acute hypoxemic respiratory insufficiency. Again, we will do 2 L nasal cannula. His room air saturations are 86-88%. Continue with nebulizers. 3. Systolic and diastolic left ventricular dysfunction. His most recent echocardiogram was performed 04/13/2017 which revealed ejection fraction of 25-30% with global hypokinesis. ProBNP appears to be chronically elevated. Today it is 20,410. Last month he ranged from 17,007 to almost 20,000. There are no crackles on auscultation. We will continue with home medication, Entresto and metoprolol. 4. Encephalopathy, metabolic versus infectious. We will hold home medications such as Xanax, Lexapro, Remeron until patient wakes up more. 5. Diabetes mellitus type 2. Continue home insulin. We will do sliding scale insulin and pattern blood glucoses here. 6. Hypertension. We will continue Lopressor. 7. Depression with labile mood. Currently holding medications for now. 8. Chronic kidney disease stage 3 is stable. The creatinine is 2. It appears his baseline creatinine is anywhere from 1.5 up to 2.3 since 2012. BUN is 32. Holding on lisinopril for now. 9. Frequent falls. He will be on fall precautions. 10. Multiple lower extremity skin tears. Left great toe history of osteomyelitis. He had completed antibiotics for that. The left great toe appears to be healing. We will consult Wound Care for lower extremity skin tears. 11. Generalized weakness and deconditioning. Consult Physical Therapy. 12. Vitamin D deficiency. Continue supplementation. 13. History of seizures as a child. Last EEG was performed 05/09/2017 which revealed normal EEG. 14. Thrombocytopenia with a platelet count of 95,000. We do hold on heparin or Lovenox for DVT prophylaxis. 15. Anemia. Appears chronic in nature. We will trend daily. Dictated by JEANNETTE Benitez for Shayna Wang MD cc: JEANNETTE Benitez MD The patient was seen and examined by me. I agree with the assessment and plan as dictated. [facility]
[2017-05-28 21:28] LABS: UR AMPHETAMINES QUAL NONE DETECTED (NONE DETECT); UR BARBITUATES QUAL NONE DETECTED (NONE DETECT); UR BENZODIAZEPIN QUAL PRESUMPTIVE POSITIVE (NONE DETECT); UR CANNABINOIDS QUAL NONE DETECTED (NONE DETECT); UR COCAINE QUAL NONE DETECTED (NONE DETECT); UR METHADONE QUAL NONE DETECTED (NONE DETECT); UR OPIATES QUAL NONE DETECTED (NONE DETECT); UR OXYCODONE QUAL NONE DETECTED (NONE DETECT); UR PCP QUAL NONE DETECTED (NONE DETECT)
[2017-05-29] MEDS: DUONEB (A & A) INH SCH ×6 (03:20→23:05)
[2017-05-29 05:14] LABS: BASO% 0.5 % (0.0-0.8); EOS# 0.07 X1000 (0.0-0.7); EOS% 1.7 % (0.0-10.0); HEMATOCRIT 37.1 % (42.0-52.0); HEMOGLOBIN 12.3 g/dL (14.0-18.0); LYMPH# 1.02 X1000 (1.2-3.4); LYMPH% 24.7 % (20.5-51.1); MANUAL DIFF NEEDED? NO; MCH 30.8 PG (27-31); MCHC 33.2 g/dL (33-37); MONO# 0.48 X1000 (0.11-0.59); MONO% 11.6 % (1.7-9.3); NEUT% 61.5 % (42.2-75.2); PLT 87 X1000 (130-400); RBC 3.99 XMIL (4.7-6.1)
[2017-05-29 05:27] LABS: ALBUMIN 3.3 g/dL (3.5-5.0); CALCIUM 8.5 mg/dL (8.8-10.2); POTASSIUM 3.8 mmol/L (3.5-5.1); TOTAL BILIRUBIN 1.04 mg/dL (0.20-1.00); TOTAL PROTEIN 5.8 g/dL (6.3-8.3)
[2017-05-29] MEDS: PRILOSEC PO SCH (06:16)
[2017-05-29] MEDS: HUMULIN R SUBQ SCH ×4 (06:26→21:05)
[2017-05-29] MEDS: PULMICORT INH SCH ×2 (07:28→19:14)
--- NOTE | 2017-05-29 08:38 | PROGRESS NOTE ---
DATE: 05/29/2017 SUBJECTIVE: Mr. Hylton appears much more alert today. He has no complaints over the evening. PHYSICAL EXAMINATION: Vital Signs: Afebrile. Heart rate is 85. His blood pressure is 141/94, but over the evening, he seemed to be in the 110s to 120s. His I's and O's thus far are somewhat difficult. He has no input and only 1 output of 650 mL and a 1 noncontinent void measured. General: He is in no acute distress. Cardiovascular: He sounds to be in a regular rate and rhythm. He has warm and well perfused lower extremities with trace lower extremity edema. His JVP continues to seem markedly elevated. Chest: Exam is clear bilaterally. No increased work of breathing. Abdomen: Soft, nontender. PERTINENT DATA: His white count is 4.1, hematocrit 37, platelet count is 87,000. Sodium is 146, potassium is 3.8. BUN 29, creatinine 1.8 which is slightly better than yesterday. T bilirubin 1.04 which is improved. His albumin is 3.3. ASSESSMENT: [id number] systolic heart failure exacerbation. PLAN: The patient's hemodynamics are much better today. He seems warm and perfusing in his lower extremities. I will change his Lasix over to once daily, continue the Coreg, and continue him on the current dose of Entresto. We will trend his blood pressures over the next 24 hours as well as his I's and O's to try to get a better handle on his fluid balance. We will check a ProBNP in the morning in addition to basic metabolic panel. cc: Devin Nuñez MD
[2017-05-29] MEDS: COREG PO SCH ×2 (08:51→21:04)
[2017-05-29] MEDS: LASIX IV SCH (08:51)
[2017-05-29] MEDS: ENTRESTO 97 MG-103 MG TABLET PO SCH ×2 (08:51→21:04)
[2017-05-29] MEDS: SANTYL OINT TOP SCH (08:51)
[2017-05-29] MEDS: ZOSYN 3.375 GM/NS 3.375 GM/50 ML IVPB IV SCH ×3 (10:51→21:05)
[2017-05-29] MEDS ORDERED: ROCEPHIN 1 GM/NS 1 GM/50 ML IVPB IV SCH (12:30)
--- NOTE | 2017-05-29 14:40 | Diag Imaging Result Doc PS360 ---
EXAM: CHEST-PORTABLE HISTORY: Pneumonia TECHNIQUE: AP portable upright at 1427 COMMENT: The inspiration is suboptimal but there has been clearing of the perihilar opacities present on 05/28/2017. IMPRESSION: Improved pulmonary edema. Electronically signed by Collin Bautista 05/29/2017 2:38 PM
--- NOTE | 2017-05-29 14:58 | PROGRESS NOTE ---
DATE: 05/29/2017 SUBJECTIVE: Patient reports breathing better. Shortness of breath is improving. No fever or chills noted. OBJECTIVE: Temperature 97.6 degrees, heart rate 85, respiratory rate 18, blood pressure 141/94 and O2 saturation 99% on 2 L nasal cannula.General Examination: This is a 62- year-old male, lying in bed, in no acute distress. HEENT: Head is normocephalic, atraumatic. Anicteric sclerae and pale conjunctivae. Mucous membranes moist. Neck: Supple. No JVD noted. No carotid bruits. No lymphadenopathy. No thyromegaly. Cardiovascular: S1 and S2 heard. No murmurs, gallops, or rubs. Regular rate and rhythm. Respiratory: There are still mild crepitations in both bases with reduced breath sounds. The patient is not using any accessory muscles or having work of breathing. Abdomen: Soft, nontender to palpation. Bowel sounds present. No organomegaly. Extremities: No clubbing, cyanosis, or edema. Peripheral pulses present in both legs. Also there is a left great toe ulcer that appears to be healing. Neurological exam: Patient alert and oriented x3. Moves 4 extremities. Cranial nerves 2-12 grossly normal. LABORATORY DATA: White cell count 4.13, hemoglobin 12.3, hematocrit 37.1, platelets 87,000 with BMP that shows sodium 146, chloride 108, BUN 29, creatinine 1.8 and total bilirubin 1.0. ASSESSMENT AND PLAN: 1. Acute on chronic systolic heart failure. Patient has been evaluated by Cardiology. Dr. Nuñez's help appreciated. Apparently the most recent echocardiogram was done on 05/01/2017 that reveals ejection fraction of 25% to 30%. There was also global hypokinesis. ProBNP was also elevated at admission. At this time, patient is doing fine. We have modified the dose of Lasix to 20 mg IV daily. We are going to check the ProBNP. Clinically he is better requiring only 2 L of oxygen by nasal cannula. We will continue to follow recommendations from Cardiology. 2. Possible aspiration pneumonia. Currently patient is on Rocephin and Levaquin. Because I suspect that this is most probably aspiration pneumonia because of encephalopathy associated to this infection I prefer to switch antibiotics and start Zosyn as a single agent. 3. Infectious versus metabolic encephalopathy. At this time, the patient is definitely much better. I think at this time, we can restart his home medications, escitalopram and mirtazapine and alprazolam. 4. Diabetes mellitus type 2. Patient is on sliding scale insulin. Blood sugars have been better controlled today. We will continue with the same management. 5. Hypertension. Currently patient is on Lopressor. Will continue with the same management. 6. Depression with labile mood. Both Remeron and Lexapro has been restarted. 7. Chronic kidney disease stage 3. Creatinine is around baseline. 8. Frequent falls. The patient is on fall precautions. 9. Multiple lower extremity skin tears. Wound Care is working with this patient. 10. Generalized weakness and deconditioning. Physical therapy has been consulted and will see if this patient needs inpatient rehab versus going home with home health. 11. Vitamin D deficiency. We will continue with supplementation. 12. Mild thrombocytopenia. We are watching this patient closely. cc: Magan Roblero MD MTDD
[2017-05-29] MEDS: LANTUS SUBQ SCH (21:04)
[2017-05-29] MEDS: REMERON PO SCH (21:04)
[2017-05-29] MEDS: XANAX PO SCH (21:04)
[2017-05-29] MEDS: LEXAPRO PO SCH (21:04)
[2017-05-30] MEDS: DUONEB (A & A) INH SCH ×6 (02:45→23:05)
[2017-05-30] MEDS: ZOSYN 3.375 GM/NS 3.375 GM/50 ML IVPB IV SCH ×4 (03:42→21:16)
[2017-05-30 05:41] LABS: CALCIUM 8.4 mg/dL (8.8-10.2); MAGNESIUM 1.5 mg/dL (1.5-2.7); POTASSIUM 3.4 mmol/L (3.5-5.1)
[2017-05-30] MEDS: PRILOSEC PO SCH (06:34)
[2017-05-30] MEDS: PULMICORT INH SCH ×2 (07:33→19:25)
[2017-05-30] MEDS ORDERED: D5 NS 1,000 ML IV SCH (07:59)
[2017-05-30] MEDS: SANTYL OINT TOP SCH (09:34)
[2017-05-30] MEDS: ENTRESTO 97 MG-103 MG TABLET PO SCH ×2 (09:34→21:15)
[2017-05-30] MEDS: LASIX IV SCH (09:34)
[2017-05-30] MEDS: COREG PO SCH ×2 (09:35→21:15)
[2017-05-30] MEDS: HUMULIN R SUBQ SCH ×4 (11:50→21:16)
[2017-05-30] MEDS: LABETALOL IV PRN (12:04)
--- NOTE | 2017-05-30 16:20 | PROGRESS NOTE ---
DATE: 05/30/2017 SUBJECTIVE: Patient reports feeling a little bit weak and reports a lot of sweating. Not feeling okay this morning. Denies any fever, chills. OBJECTIVE: Vital Signs: Temperature 97.7 degrees, heart rate 98, respiratory rate 18, blood pressure 156/106. O2 saturation 100% on room air. On 2 L nasal cannula. General: This is a 62- year-old male, looking older than his age, lying in bed in no acute distress. HEENT: Head is normocephalic, atraumatic. Anicteric sclerae and pale conjunctivae. Mucous membranes moist. Neck: Supple. No JVD noted. No carotid bruits. No lymphadenopathy. No thyromegaly. Cardiovascular: S1, S2 heard. No murmurs, gallops, or rubs. Regular rate and rhythm. Respiratory: Clear bilaterally to auscultation. No work of breathing or using accessory muscles. Abdomen: Soft, nontender to palpation. Bowel sounds present. No organomegaly. Extremities: No clubbing, cyanosis, or edema. Peripheral pulses present in both legs. Neurological: Patient is alert and oriented x3. Able to move 4 extremities. Cranial nerves 2-12 grossly normal. LABORATORY DATA: Reviewed. ASSESSMENT AND PLAN: 1. Acute on chronic systolic heart failure. Patient has been evaluated by Cardiology. He is in acute on chronic systolic heart failure. Dr. Nuñez had evaluated this patient yesterday. He plan to continue with Lasix, also Coreg and also Entresto. We will continue with the same management. 2. Possible aspiration pneumonia. Patient is on Zosyn. We will continue with the same management. 3. Infection versus metabolic encephalopathy. Now this patient is much better. There was an episode of low mentation yesterday, but now it is much better. 4. Hypoglycemia. The patient is on sliding scale insulin and also on basal insulin, but because he was not breathing okay, the blood sugar has been dropping. Patient has been placed on D5W and D5 normal saline and we will go from there. 5. Chronic kidney disease, stage 3. Creatinine around baseline. 6. Frequent falls. Patient is on fall precautions. 7. Generalized weakness and deconditioning. Physical therapy has been consulted. 8. Vitamin D deficiency. We will continue with supplement. 9. Mild thrombocytopenia aware. cc: Magan Roblero MD
[2017-05-30] MEDS: REMERON PO SCH (21:16)
[2017-05-30] MEDS: XANAX PO SCH (21:16)
[2017-05-30] MEDS: LEXAPRO PO SCH (21:16)
[2017-05-30] MEDS: LANTUS SUBQ SCH (21:16)
[2017-05-31] MEDS: ZOSYN 3.375 GM/NS 3.375 GM/50 ML IVPB IV SCH ×4 (03:14→20:13)
[2017-05-31] MEDS: DUONEB (A & A) INH SCH ×6 (03:25→22:49)
[2017-05-31] MEDS: HUMULIN R SUBQ SCH ×4 (06:24→20:13)
[2017-05-31] MEDS: PRILOSEC PO SCH (06:34)
[2017-05-31] MEDS: PULMICORT INH SCH ×2 (07:41→19:15)
[2017-05-31 08:30] LABS: BASO% 0.2 % (0.0-0.8); EOS% 2.9 % (0.0-10.0); HEMOGLOBIN 11.9 g/dL (14.0-18.0); MANUAL DIFF NEEDED? YES; MONO# 0.53 X1000 (0.11-0.59)
[2017-05-31] MEDS: SANTYL OINT TOP SCH (08:42)
[2017-05-31] MEDS: LASIX IV SCH (08:42)
[2017-05-31] MEDS: ENTRESTO 97 MG-103 MG TABLET PO SCH ×2 (08:42→20:12)
[2017-05-31] MEDS: COREG PO SCH ×2 (08:42→20:12)
[2017-05-31 08:46] LABS: CALCIUM 8.6 mg/dL (8.8-10.2); POTASSIUM 3.7 mmol/L (3.5-5.1)
[2017-05-31] MEDS: LABETALOL IV PRN (09:00)
[2017-05-31 09:16] LABS: EOS 2 % (1-10); LARGE PLATELETS 2+; LYMPHS 21 % (21-51); MONO 10 % (1-9)
[2017-05-31 09:24] LABS: EOS# 0.15 X1000 (0.0-0.7); HEMATOCRIT 36.3 % (42.0-52.0); LYMPH# 1.16 X1000 (1.2-3.4); LYMPH% 22.1 % (20.5-51.1); MCH 30.7 PG (27-31); MCHC 32.8 g/dL (33-37); MCV 93.8 FL (81-99); MONO% 10.1 % (1.7-9.3); NEUT% 64.7 % (42.2-75.2); PLT 88 X1000 (130-400); RBC 3.87 XMIL (4.7-6.1)
--- NOTE | 2017-05-31 13:15 | PROGRESS NOTE ---
DATE: 05/31/2017 SUBJECTIVE: Patient reports feeling fine, breathing better. Denies any chest pain, any shortness of breath. OBJECTIVE: Vital Signs: Temperature 97.5 degrees, heart rate 95, respiratory rate 17, blood pressure 140/107. O2 sat 94% on room air. General: This is a 62-year-old -[place] male, looking older than his age, lying in bed, in no acute distress. HEENT: Head is normocephalic and atraumatic. Anicteric sclerae and pale conjunctivae. Mucous membranes moist. Neck supple. No JVD noted. No carotid bruits. No lymphadenopathy. No thyromegaly. Cardiovascular: S1 and S2 heard. No murmurs, gallops, or rubs. Regular rate and rhythm. Respiratory: Clear bilaterally to auscultation. No work of breathing or using accessory muscles. Abdomen is soft, nontender to palpation. Bowel sounds present. No organomegaly. Extremities: No clubbing, cyanosis, or edema. Peripheral pulses present in both legs. Neurological: Patient is alert and oriented x3, able to move her extremities. Cranial nerves 2-12 grossly normal. LABORATORY DATA: White cell count 5.6, hemoglobin 11.9, hematocrit 36.3. Platelets 88,000. BMP shows creatinine 1.8. ASSESSMENT AND PLAN: 1. [id number] systolic heart failure. Cardiology is following this patient. Currently, patient is on Coreg, Lasix and Entresto. Will continue with the same management. The patient is definitely much more stable. He is on room air. I think from my standpoint, his condition is definitely more stable. 2. Aspiration pneumonia. Patient is on Zosyn. Actually, this is the #3 with this medication, but he was receiving Levaquin before. Will continue with same management. 3. Infectious versus metabolic encephalopathy. That condition is completely resolved. 4. Hypoglycemia. The patient's insulin products have been withheld since yesterday and today the lowest blood sugar was 86. We are going to continue with the same management. He is definitely eating better, so we may need to restart his insulin tomorrow morning. 5. Chronic kidney disease, stage 3. Creatinine continues to be around baseline. 6. Frequent falls. Patient fall precautions. 7. Generalized weakness and deconditioning. Physical therapy has been consulted and, also, he will need to be sent to rehab facility upon discharge. 8. Vitamin D deficiency. We will continue supplements. 9. Mild thrombocytopenia, aware. cc: Magan Roblero MD
[2017-05-31] MEDS: LEXAPRO PO SCH (20:13)
[2017-05-31] MEDS: LANTUS SUBQ SCH (20:13)
[2017-05-31] MEDS: XANAX PO SCH (21:56)
[2017-05-31] MEDS: REMERON PO SCH (21:56)
[2017-06-01] MEDS: DUONEB (A & A) INH SCH ×3 (03:25→10:59)
[2017-06-01] MEDS: LABETALOL IV PRN (04:13)
[2017-06-01] MEDS: ZOSYN 3.375 GM/NS 3.375 GM/50 ML IVPB IV SCH ×3 (04:14→14:05)
[2017-06-01 04:51] LABS: BASO% 0.2 % (0.0-0.8); EOS# 0.17 X1000 (0.0-0.7); HEMOGLOBIN 11.7 g/dL (14.0-18.0); LYMPH# 1.28 X1000 (1.2-3.4); LYMPH% 29.9 % (20.5-51.1); MANUAL DIFF NEEDED? NO; MCH 30.8 PG (27-31); MCHC 32.5 g/dL (33-37); MCV 94.7 FL (81-99); MONO% 11.7 % (1.7-9.3); NEUT% 54.2 % (42.2-75.2); PLT 80 X1000 (130-400)
[2017-06-01 05:10] LABS: CALCIUM 8.9 mg/dL (8.8-10.2); POTASSIUM 3.8 mmol/L (3.5-5.1)
[2017-06-01] MEDS: HUMULIN R SUBQ SCH ×2 (06:24→11:30)
[2017-06-01] MEDS: PRILOSEC PO SCH (06:24)
[2017-06-01] MEDS: PULMICORT INH SCH (07:33)
[2017-06-01] MEDS ORDERED: SODIUM CHLORIDE 0.9% INJ ONE (07:55)
[2017-06-01] MEDS ORDERED: PHENERGAN IV ONE (07:55)
[2017-06-01] MEDS: ENTRESTO 97 MG-103 MG TABLET PO SCH (08:29)
[2017-06-01] MEDS: COREG PO SCH (08:29)
[2017-06-01] MEDS: LASIX IV SCH (08:29)
[2017-06-01] MEDS: SANTYL OINT TOP SCH (08:30)
[2017-06-01] MEDS: OFIRMEV 1000 MG/ISOTONIC SOLN 1,000 MG/100 ML BOTTLE IV SCH ×2 (10:23→14:15)
[2017-06-01 12:14] VITALS: BP 123/98
--- NOTE | 2017-06-01 14:35 | PROGRESS NOTE ---
DATE: 06/01/2017 SUBJECTIVE: Patient reports feeling better today. No chest pain. No shortness of breath noted. OBJECTIVE: Vital Signs: Temperature 97.6 degrees, heart rate 83, respiratory rate 16, blood pressure 144/113, O2 saturation 98% on room air. General Examination: This is a 62-year-old male, looking older than his age, lying in bed in no acute distress. HEENT: Head is normocephalic, atraumatic. Anicteric sclerae and pale conjunctivae. Mucous membranes moist. Neck: Supple. No JVD noted. No carotid bruits. No lymphadenopathy. No thyromegaly. Cardiovascular Exam: S1, S2 heard. No murmurs, gallops, or rubs. Regular rate and rhythm. Respiratory Exam: Clear bilaterally to auscultation. No work of breathing or using accessory muscles. Abdomen: Soft, nontender to palpation. Bowel sounds present. No organomegaly. Extremities: No clubbing, cyanosis, or edema. Peripheral pulses present in both legs. Neurological exam: Patient is alert and oriented x3. Moves 4 extremities. Cranial nerves 2-12 grossly normal. LABORATORY DATA: White cell count is 4.28, hemoglobin 11.7, hematocrit 36.0, platelets 80 with BMP that shows creatinine 1.8. ASSESSMENT AND PLAN: 1. Acute on chronic systolic heart failure. I think this condition is much better. Cardiology following this patient. Currently the patient is receiving Coreg, Lasix and Entresto. At discharge, we are going to change the Lasix to oral. 2. Aspiration pneumonia. Patient is on Zosyn. Today is day #4. 3. Medication at this point: While this patient is in the hospital, we are going to continue with the same management. He may need to complete 7 more days of this antibiotic. Also if intravenous medications cannot be administered in the rehabilitation facility, we can switch it to Levaquin. 4. Chronic kidney disease stage III. Creatinine is around baseline. 5. Frequent falls. Patient is on fall precautions. Physical therapy working with this patient. 6. Generalized weakness and deconditioning. 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 7. Vitamin D deficiency. We will continue supplementing that. 8. Mild thrombocytopenia, aware. Overall this patient is stable. We are going to continue with the same medical management and we are waiting for a bed in the rehab facility.. cc: Magan Roblero MD
--- NOTE | 2017-06-01 16:24 | DISCHARGE SUMMARY ---
ADMISSION DATE: 05/28/2017 DISCHARGE DATE: 06/01/2017 DISCHARGE DIAGNOSES: 1. Acute on chronic systolic heart failure improved. 2. Aspiration pneumonia improved. 3. Metabolic encephalopathy resolved. 4. Diabetes mellitus type 2. 5. Hypertension. 6. Depression. 7. Chronic kidney disease stage 3. Stable. 8. Frequent falls. 9. Generalized weakness and physical deconditioning. 10. Vitamin D deficiency. 11. Mild thrombocytopenia. CONSULTATION: Dr. Devin Nuñez from Cardiology. PROCEDURES: 1. Head CT showed chronic microvascular changes and arteriosclerosis and severe atrophy but no evidence of acute disease. 2. CT of the chest showed findings most likely due to congestive heart failure rather than pneumonia HOSPITAL COURSE: This is a 62-year-old male, well known to our service with frequent admissions has medical history of systolic and diastolic left ventricular dysfunction, chronic kidney disease, diabetes, osteomyelitis that according to the girlfriend for the last 2 days he noticed increased shortness of breath. When he swallows he reported he was having cough and also he was seen recently in the ER for frontal headaches for the last few days. Here x-ray revealed bibasilar atelectasis versus infiltrate. Patient admitted to the hospital for further evaluation and treatment. White cell count was normal. The patient was afebrile but just to be on the safe side, the patient was started on antibiotics, in this case Zosyn. Also because of the acute on chronic systolic heart failure. Cardiology was consulted. Patient was started on diureses with Lasix. Patient responded to the therapy. Feeling much better. Requiring less oxygen supplementation. At the time of discharge, the patient is feeling more stable. No shortness of breath at all. For diabetes we have treated that with sliding scale insulin. For hypertension patient was continued on Lopressor. For depression patient was getting Remeron and Lexapro. For chronic kidney disease we are checking creatinine and that remains around baseline. For frequent falls and general deconditioning patient is going to rehab facility. The patient is being discharged in stable condition. PHYSICAL EXAMINATION: Vitals: Temperature 97.7 degrees, heart rate 87, respiratory rate 16, blood pressure 123/98, O2 saturation 100% on room air. General examination: This is a 62-year- old male, lying in bed, in no acute distress. HEENT: Head is normocephalic, atraumatic. Anicteric sclerae and pale conjunctivae. Mucous membranes moist. Neck: Supple. No JVD noted. No carotid bruit. No lymphadenopathy. No thyromegaly. Cardiovascular: S1, S2 heard. No murmurs, gallops, or rubs. Regular rate and rhythm. Respiratory: Clear bilaterally to auscultation. No work of breathing or using accessory muscles. Abdomen: Soft, nontender to palpation. Bowel sounds present. No organomegaly. Extremities: No clubbing, cyanosis, or edema. There is a left great toe ulcer that appears to be healing. Neurologic Exam: Patient alert and oriented x3. Able to move 4 extremities. Cranial nerves 2-12 grossly normal. DISCHARGE DISPOSITION: The patient is going to rehab facility. LIST OF MEDICATIONS: 1. Coreg 3.125 one tablet p.o. b.i.d. 2. Levofloxacin 1 tablet p.o. daily for 7 days. 3. Cyclobenzaprine 10 mg p.o. b.i.d. 4. Insulin Lantus 24 units daily. 5. Tramadol 50 mg p.o. at bedtime. 6. Lexapro 20 mg p.o. daily. 7. Lisinopril 10 mg 1 tablet p.o. daily. 8. Entresto 49/51 mg 1 tablet p.o. b.i.d. 9. Vitamin D3 1000 units p.o. daily. 10. Clonidine 0.1 mg 2 times per day. 11. Alprazolam 2 mg p.o. at bedtime. DISCHARGE TIME: 35 minutes FOLLOWUP: With his primary care physician in 4 weeks. cc: MD MULUGETA Alfaro
== END 2017-06-01 15:00 ==
LOC: SUPCPDRO → ED 10:41 → SUATTDRO 10:42 → EDIPHOLD 10:42 → 3S 16:00
PROVIDERS: ATTEND Internal Medicine

== ENCOUNTER 2017-06-27 13:54 | Inpatient (IN) ==
[2017-06-27 15:04] LABS: MANUAL DIFF NEEDED? NO
[2017-06-27 15:07] LABS: INR 1.01; PROTIME 10.6 Seconds (9.2-11.7); PTT 20.4 Seconds (22.0-36.0)
--- NOTE | 2017-06-27 15:10 | Diag Imaging Result Doc PS360 ---
EXAM: CT HEAD W/O CONTRAST HISTORY: dizziness TECHNIQUE: CT of the head without contrast with dose reduction (clarity.) COMMENT: There are calcifications in the internal carotid and vertebral arteries bilaterally. There is generalized cerebral and cerebellar atrophy. There are small lacunae a adjacent to the caudate nuclei bilaterally particularly on the right side. This was also apparently present at the time the previous study of 05/28/2017. There is no evidence of bleed, mass effect, abnormal extra-axial fluid collection, or acute bony abnormality. The visualized paranasal sinuses are clear. IMPRESSION: Chronic ischemic changes. No evidence of acute disease. Electronically signed by Coliln Bautista 06/27/2017 3:08 PM
[2017-06-27 15:30] LABS: ALBUMIN 3.5 g/dL (3.5-5.0); CALCIUM 8.8 mg/dL (8.8-10.2); POTASSIUM 4.2 mmol/L (3.5-5.1); TOTAL BILIRUBIN 0.34 mg/dL (0.20-1.00); TOTAL PROTEIN 6.2 g/dL (6.3-8.3)
[2017-06-27 15:38] LABS: BASO% 0.2 % (0.0-0.8); EOS# 0.13 X1000 (0.0-0.7); EOS% 2.2 % (0.0-10.0); HEMOGLOBIN 12.8 g/dL (14.0-18.0); LYMPH# 2.22 X1000 (1.2-3.4); LYMPH% 38.3 % (20.5-51.1); MCH 29.8 PG (27-31); MCV 93.2 FL (81-99); MONO% 10.4 % (1.7-9.3); MPV 13.1 FL (7.4-10.4); NEUT% 48.9 % (42.2-75.2); PLT 150 X1000 (130-400); RBC 4.29 XMIL (4.7-6.1)
[2017-06-27] MEDS ORDERED: NS 1,000 ML IV ONE (16:03)
--- NOTE | 2017-06-27 16:54 | PROVIDER DOCUMENTATION ---
This chart was entered by Tashi Hawkins Scribe, acting as scribe for Ronnie Ochoa CRNP. HPI-Syncope/Dizziness - General Chief Complaint: B/P Problems Stated Complaint: STROKE LIKE SX Time Seen by Provider: 06/27/17 14:35 Source: patient Allergies/Adverse Reactions: Patient Allergies Allergy/AdvReac Type Severity Reaction Status Date / Time No Known Allergies Allergy Verified 05/28/17 12:55 Home Medications: Home Medication List Medication Instructions Recorded Confirmed Last Taken Type Cyclobenzaprine HCl 10 mg PO BID 04/01/17 05/28/17 05/28/17 08:00 History Insulin Glargine,Hum.rec.anlog 24 unit SQ HS 04/13/17 05/28/17 05/27/17 08:00 History [Lantus Solostar] Escitalopram [Lexapro] 20 mg PO QHS #60 tablet 05/11/17 05/28/17 05/28/17 08:00 Rx Mirtazapine [Remeron] 15 mg PO QHS #60 tablet 05/11/17 05/28/17 05/27/17 23:00 Rx LISINOpril [Prinivil] 10 mg PO DAILY 05/27/17 05/28/17 05/28/17 08:00 History Sacubitril/Valsartan [Entresto 49 1 tab PO BID 05/27/17 05/28/17 05/28/17 08:00 History mg-51 mg Tablet] Cholecalciferol (Vitamin D3) 1,000 unit PO DAILY 05/28/17 05/28/17 05/28/17 08: 00 History [Vitamin D3] Clonidine [Catapres] 0.1 mg PO TID 05/28/17 05/28/17 05/28/17 08:00 History Alprazolam [Xanax] 2 mg PO HS #30 tablet 06/01/17 Unknown Rx Carvedilol [Coreg] 3.125 mg PO BID #60 tablet 06/01/17 Unknown Rx Levofloxacin 750 mg PO DAILY #7 tablet 06/01/17 Unknown Rx - History of Present Illness-Syncope/Dizzy Nature of Presenting Problem: patient is a 62 y/o M that presents to the ER with dizziness that began today due to low bp. patient reports some facial droop/weakness but is gone on arrival. Onset/Duration: reports: gradual, this morning Timing: reports: still present, constant Position/Activity at time of episode: reports: sitting Loss of Consciousness: no loss of consciousness Current Symptoms: reports: dizzy, lightheaded. denies: vomiting, shoulder pain Recently Seen Here or By Another Healthcare Provider: No - Dizziness Severity in ED: reports: mild, moderate Dizziness Related Current/Associated Symptoms: reports: dizzy, lightheaded. denies: sense of spinning, sense of falling, syncope Any recent trauma/injury?: reports: none Modifying Factors: improves with: nothing Patient usually:: reports: walks without assistance Review of Systems - Adult - REVIEW OF SYSTEMS - ADULT Constitutional: denies: chills, fever Eyes: denies: decreased vision, blurred vision, double vision Ears, Nose, Mouth & Throat: denies: ear discharge, ear pain, sinus problem, throat pain, throat swelling Cardiovascular: denies: chest pain, palpitations, syncope Respiratory: denies: cough, dyspnea on exertion, shortness of breath, wheezing Gastrointestinal: denies: abdominal pain, diarrhea, nausea, vomiting Genitourinary: denies: frequency, hematuria, urgency Musculoskeletal: reports: no symptoms reported Integumentary: reports: no symptoms reported Neurological: reports: dizziness/vertigo, other (left facial numbness). denies : seizure, syncope Psychiatric: reports: no symptoms reported Endocrine: reports: no symptoms reported Hematologic/Lymphatic: reports: no symptoms reported Allergic/Immunologic: reports: no symptoms reported All Other Systems: Reviewed and Negative Past History - Adult - PAST MEDICAL HISTORY-ADULT Review of Records: reports: Old Records Reviewed, Nursing Assessment Review, Medications Reviewed Cardiovascular: reports: CHF, HTN Musculoskeletal: reports: arthritis Neurological: reports: Seizures/Epilepsy, other (NEUROPATHY) Psychiatric: reports: depression Endocrine/Immune: reports: Diabetes, other (neuropathy) - PRIOR SURGERIES/PROCEDURES Surgical/Procedure History: reports: orthopedic (extremity), other (right 5th toe amputation) - IMMUNIZATION STATUS Childhood Immunizations: See Nurse Assessment Flu Vaccine: See Nurse Assessment - FAMILY HISTORY Family History: reviewed, not pertinent - SOCIAL HISTORY Smoking: non-smoker Living Situation: family Physical Exam-General - PHYSICAL EXAM-ADULT Initial Vital Signs Reviewed: Yes - CONSTITUTIONAL General Appearance: alert, no apparent distress - EYES Eyes: PERRL/EOMI, pink conjunctivae - HEAD, EARS, NOSE, MOUTH & THROAT HENMT: normocephalic/atraumatic, moist mucous membranes, normal ENT inspection - NECK Neck: full range of motion, normal inspection - RESPIRATORY Respiratory: chest non-tender, lungs clear, normal breath sounds, no respiratory distress, no accessory muscle use - CARDIOVASCULAR Cardiovascular: regular rate, rhythm, no edema, no JVD, no murmur - GASTROINTESTINAL (ABDOMEN) Abdominal Exam: normal bowel sounds, non tender, soft, no organomegaly, no pulsatile mass - MUSCULOSKELETAL Back Exam: no CVA tenderness, no vertebral tenderness Extremity: normal range of motion, normal inspection, no pedal edema - SKIN Integumentary: normal color, warm/dry - NEUROLOGIC Neurologic: forepart rasper II-XII nml as tested, no motor/sensory deficits - PSYCHIATRIC Psych/Mental Status: normal mood/affect, normal thought content, normal thought process, oriented x 3 Progress - PLAN OF CARE/RESULTS Progress/Plan/Lab Results: Vital Signs - 8 hr 06/27/17 13:59 06/27/17 16:04 Temperature 98.9 F Pulse Rate 85 Pulse Rate [Sitting] 79 Pulse Rate [Standing] 82 Pulse Rate [Supine] 75 Respiratory Rate 16 Blood Pressure 93/64 Blood Pressure [Sitting] 141/95 Blood Pressure [Standing] 87/59 Blood Pressure [Supine] 139/91 O2 Sat by Pulse Oximetry 100 Laboratory Results - last 24 hr 06/27/17 06/27/17 06/27/17 14:43 14:43 14:43 WBC RBC Hgb Hct MCV MCH MCHC RDW Std Deviation Plt Count MPV Immature Gran % (Auto) Neut % (Auto) Lymph % (Auto) Braxton % (Auto) Eos % (Auto) Baso % (Auto) Immature Gran # (Auto) Neut # (Auto) Lymph # (Auto) Braxton # (Auto) Eos # (Auto) Baso # (Auto) PT 10.6 INR 1.01 PTT (Actin FS) 20.4 L Sodium Potassium Chloride Carbon Dioxide Anion Gap BUN Creatinine Estimated GFR/1.73 m2 BUN/Creatinine Ratio Glucose Calculated Osmolality Calcium Total Bilirubin AST ALT Alkaline Phosphatase Creatine Kinase 87 Troponin T 0.012 Total Protein Albumin Globulin Albumin/Globulin Ratio 06/27/17 06/27/17 14:43 14:43 WBC 5.79 RBC 4.29 L Hgb 12.8 L Hct 40.0 L MCV 93.2 MCH 29.8 MCHC 32.0 L RDW Std Deviation 15.7 H Plt Count 150 MPV 13.1 H Immature Gran % (Auto) 0.0 Neut % (Auto) 48.9 Lymph % (Auto) 38.3 Braxton % (Auto) 10.4 H Eos % (Auto) 2.2 Baso % (Auto) 0.2 Immature Gran # (Auto) 0.00 Neut # (Auto) 2.83 Lymph # (Auto) 2.22 Braxton # (Auto) 0.60 H Eos # (Auto) 0.13 Baso # (Auto) 0.01 PT INR PTT (Actin FS) Sodium 140 Potassium 4.2 Chloride 100 Carbon Dioxide 28 Anion Gap 12 BUN 28 H Creatinine 1.7 H Estimated GFR/1.73 m2 50 BUN/Creatinine Ratio 16 Glucose 151 H Calculated Osmolality 288 Calcium 8.8 Total Bilirubin 0.34 AST 25 ALT 14 Alkaline Phosphatase 90 Creatine Kinase Troponin T Total Protein 6.2 L Albumin 3.5 Globulin 2.7 Albumin/Globulin Ratio 1.3 Orders Category Date Time Status Orthostatic Vital Signs NOW Care 06/27/17 14:47 Active Saline Loc NOW Care 06/27/17 14:26 Active CHEST-2 VIEWS [RAD] Routine Exams 06/27/17 16:[address] HEAD W/O CONTRAST [CT] Stat Exams 06/27/17 14:46 Completed CBC WITH ELECTRONIC DIFF [HEME] Stat Lab 06/27/17 14:43 Completed CK PROFILE [SP CHEM] Stat Lab 06/27/17 14:43 Completed CMP [COMPREHENSIVE METABOLIC PANEL] [CHEM] Stat Lab 06/27/17 14:43 Completed PROTIME WITH INR [COAG] Stat Lab 06/27/17 14:43 Completed PTT [COAG] Stat Lab 06/27/17 14:43 Completed TROPONIN T Stat Lab 06/27/17 14:43 Completed 0.9% Sodium Chloride Inj [Ns] 1,000 ml Med 06/27/17 16:03 Active IV 999 mls/hr Transfer/Admit Order [TRANSFER] Routine Transfer 06/27/17 16:50 Ordered Result Diagrams: 06/27/17 14:43 06/27/17 14:43 - EKG 1 Time of EKG reading by physician:: 14:30 EKG Read and Signed by:: Mat Lee EKG Interpretation (*Must complete 3 of following elements*): Abnormal Rate: 81 Rhythm: Sinus Rhythm with 1st degree AV Block [place]: normal QRS: normal CO Interval: normal ST Wave: non-specific ST changes - CT/MRI 1 Impression: Normal (Per radiologist.) - CONSULTS/PCP/HOSPITALIST Notification #1 *Consult/PCP/Hospitalist*: Dr. Neal Time Discussed: 16:54 Consult Disposition: Will see in ED, Admit Departure - Departure Date of Disposition Decision: 06/27/17 Time of Disposition Decision: 15:59 DIAGNOSIS: Dizziness, Orthostatic hypotension Disposition: ADMITTED INPATIENT 09 Certified Medical Emergency: Emergent Condition: Stable Referrals and Follow-Ups: Ronald Posadas MD [Primary Care Provider] - - Critical Care Note This patient required my direct & personal management of CC.: No Attestation - Physician/ SYLVIA Attestation Patient care was provided by Advanced Practice Provider:: Yes Advanced Practice Provider:: Ronnie Ochoa Advanced Practice Provider documentation review:: The Mid-level provider documentation, treatment plan and medical decision making was reviewed by the physician who agrees with all treatment and medical decision making by the MLP. The physician spent face to face time with patient:: No Advanced Practice Provider documentation review:: Supervising physician onsite and consulted in the evaluation and care of this patient. The physician did not have a face to face encounter with the patient. This chart was documented by the indicated scribe, (Tashi Hawkins, Albaibgertrudis) and accurately reflects the services I performed and decisions made by me, Ronnie Ochoa CRNP, as attested by the provider's signature.
--- NOTE | 2017-06-27 17:30 | Diag Imaging Result Doc PS360 ---
EXAM: CHEST-2 VIEWS HISTORY: recent pna TECHNIQUE: AP sitting upright chest with lateral two views COMMENT: The inspiration is better than on 05/29/2017. The left hemidiaphragm is still elevated. There is no evidence of residual pleural fluid. IMPRESSION: No evidence of acute disease. Electronically signed by Collin Bautista 06/27/2017 5:28 PM
[2017-06-27] MEDS ORDERED: ROBITUSSIN-DM PO ONE (17:55)
[2017-06-27] MEDS ORDERED: NS 1,000 ML IV SCH (19:48)
[2017-06-27] MEDS ORDERED: TYLENOL PO PRN (19:48)
[2017-06-27] MEDS ORDERED: ZOFRAN IV PRN (19:48)
[2017-06-27] MEDS ORDERED: XANAX PO SCH (21:00)
[2017-06-27] MEDS ORDERED: LEXAPRO PO SCH (21:00)
[2017-06-27] MEDS ORDERED: REMERON PO SCH (21:00)
[2017-06-27] MEDS ORDERED: NEURONTIN PO SCH (21:00)
--- NOTE | 2017-06-27 21:05 | HISTORY AND PHYSICAL ---
PRIMARY CARE PROVIDERS: Ronald Posadas MD CHIEF COMPLAINT: Cough x2 days with sinus drainage and headache. Dizziness this morning with a low blood pressure. HISTORY OF PRESENT ILLNESS: Mr. Ryan Hylton is a 62-year-old male, who is well known to our service for frequent admissions. Presents today with complaints of a cough x2 days and sinus drainage. Denies any fever or chills. He also has complaints of dizziness that started this morning with a blood pressure that dropped to 93 systolic. He had a recent admission to [facility] where they changed his medication regimen from clonidine 0.1 t.i.d. to Coreg 6.25 twice daily. Upon evaluation, chest x-ray was clear. Orthostatic vital signs were obtained and he went from a systolic of 141/95 at a sitting position down to 87/59 at a standing position. We will admit overnight, do q.12 hour orthostatic vital signs. We will add Flonase for the sinus drainage and cough and re-evaluate in the morning. We will hold antihypertensives. PAST MEDICAL HISTORY: 1. Systolic and diastolic left ventricular dysfunction. 2. Chronic kidney disease stage 3. 3. Diabetes mellitus type 2. 4. Osteomyelitis. 5. Multiple falls. 6. History of candidemia. 7. Osteomyelitis to the left big toe. 8. Depression with labile emotions. 9. Vitamin D deficiency. 10. Pulmonary artery hypertension. 11. Peripheral neuropathy. 12. Seizures as a child. 13. Hypertension. SURGICAL HISTORY: Right arm, right leg and right hip surgery. Toe amputation on the left foot. Penile implant. SOCIAL HISTORY: Denies tobacco, alcohol or illicit drug use. FAMILY HISTORY: Noncontributory. ALLERGIES: No known drug allergies. HOME MEDICATIONS: Xanax 1 mg p.o. twice daily. Coreg 6.25 p.o. twice daily. Vitamin D 3000 units p.o. daily. Lexapro 20 mg p.o. nightly. Neurontin 100 mg p.o. twice daily. Neurontin 300 mg p.o. nightly for total of 400 mg nightly. [place] 5 1 tab p.o. every 4 hours p.r.n. for pain. Lantus insulin 20 units subcutaneous nightly. Remeron 50 mg p.o. nightly. Protonix 40 mg p.o. daily. Entresto 1 tab p.o. twice daily. Tamsulosin 0.4 mg p.o. daily. REVIEW OF SYSTEMS: Fourteen point review of systems were complete and all were negative except for those mentioned in above HPI. PHYSICAL EXAMINATION: VITAL SIGNS: Temperature is 98.9 degrees, heart rate 76, respiratory rate 18, blood pressure 140/94, O2 saturation 100% on room air. ORTHOSTATIC VITAL SIGNS: Supine: Heart rate 75, blood pressure 139/91. Sitting: Heart rate 79, blood pressure 141/95. Standing: Heart rate 82, blood pressure 87/59. HEIGHT AND WEIGHT: He is 6 feet tall, 181 pounds. BMI 24.5. GENERAL: Mr. Ryan Hylton is a 62-year-old male. He is in no acute distress. He is able to answer questions appropriately. HEENT: Atraumatic, normocephalic. Pupils equal, round, reactive to light. Extraocular movements intact. Mucous membranes are moist. NECK: No JVD or carotid bruits noted. CARDIOVASCULAR: S1, S2. Regular rate and rhythm. No rubs, gallops, murmurs. PULMONARY: Clear to auscultate. Bilateral breath sounds. No accessory muscle use or work of breathing noted. GI: Soft, nontender, nondistended. Positive bowel sounds x4. EXTREMITIES: No edema noted. +2 dorsalis and radial pulses. NEUROLOGIC: Alert and oriented x4. Moves all extremities equally. SKIN: Warm, dry, intact. LABORATORY DATA: White blood cells 5000, hemoglobin 12, hematocrit 40, platelet count 150,000. INR 1.01. PTT is 20.4. Sodium 140, potassium 4.2, BUN 28, creatinine is 1.7, glucose 151. Calcium 8.8, bilirubin 0.34, AST 25, ALT 14, CK 87, troponin 0.012. Total protein 6.2. IMAGING: Head CT: Chronic ischemic changes. No acute findings. Chest x-ray: No evidence of acute disease. Still continues to have an elevated left hemidiaphragm. ASSESSMENT AND PLAN: 1. Orthostatic hypotension that is medication induced. We will hold antihypertensives for now. We will check q.12 hours orthostatics and re-evaluate in the morning. 2. Cough for 2 days with sinus drainage. We will add Flonase. 3. Chronic kidney disease, stage 3 is stable. 4. Systolic and diastolic left ventricular dysfunction. No acute exacerbation. 5. Diabetes mellitus type 2. We will do pattern blood glucoses, sliding scale insulin. 6. Hypertension. See #1. 7. Deep venous thrombosis prophylaxis. Heparin 5000 units subcutaneous twice daily. 8. Gastrointestinal prophylaxis. Proton pump inhibitor, Protonix 40 mg p.o. daily. Dictated by JEANNETTE Benitez for Magan Roblero MD cc: JEANNETTE Benitez MD Moses Awoniyi, MD
[2017-06-27] MEDS: HEPARIN SUBQ SCH (22:25)
[2017-06-27] MEDS: FLONASE NAS SCH (22:30)
[2017-06-27] MEDS: HUMULIN R SUBQ SCH (22:33)
[2017-06-27] MEDS: LANTUS SUBQ SCH (22:37)
[2017-06-28 03:37] LABS: MANUAL DIFF NEEDED? NO
[2017-06-28 03:44] LABS: BASO% 0.2 % (0.0-0.8); EOS# 0.16 X1000 (0.0-0.7); EOS% 2.9 % (0.0-10.0); HEMATOCRIT 39.7 % (42.0-52.0); HEMOGLOBIN 12.8 g/dL (14.0-18.0); LYMPH% 38.3 % (20.5-51.1); MCH 29.9 PG (27-31); MCHC 32.2 g/dL (33-37); MCV 92.8 FL (81-99); MONO# 0.38 X1000 (0.11-0.59); MONO% 6.9 % (1.7-9.3); MPV 12.8 FL (7.4-10.4); NEUT% 51.7 % (42.2-75.2); PLT 138 X1000 (130-400); RBC 4.28 XMIL (4.7-6.1)
[2017-06-28 03:52] LABS: INR 1.02; PROTIME 10.7 Seconds (9.2-11.7); PTT 31.6 Seconds (22.0-36.0)
[2017-06-28 04:10] LABS: ALBUMIN 3.4 g/dL (3.5-5.0); CALCIUM 8.7 mg/dL (8.8-10.2); MAGNESIUM 1.8 mg/dL (1.5-2.7); POTASSIUM 3.7 mmol/L (3.5-5.1); TOTAL BILIRUBIN 0.4 mg/dL (0.20-1.00); TOTAL PROTEIN 6.4 g/dL (6.3-8.3)
--- NOTE | 2017-06-28 07:45 | EKG Report ---
Test Performed on : 06/28/2017 06:04:01 AM Test Reason : chest pain Blood Pressure : / mmHG Vent. Rate : 077 BPM Atrial Rate : 077 BPM P-R Int : 226 ms QRS Dur : 108 ms QT Int : 428 ms P-R-T Axes : 057 028 190 degrees QTc Int : 484 ms Sinus rhythm. with 1st degree AV block. T wave abnormality, consider anterolateral ischemia Prolonged QT Abnormal ECG When compared with ECG of 27-JUN-2017 14:15, (Unconfirmed) T wave inversion more evident in V2 Flat T waves now evident in V1 Confirmed by Shaun Nuñez DO ([id number]) on 06/30/2017 3:47:48 PM
--- NOTE | 2017-06-28 08:06 | EKG Report ---
Test Performed on : 06/27/2017 2:15:12 PM Test Reason : NO ORDER IN amiando Blood Pressure : / mmHG Vent. Rate : 081 BPM Atrial Rate : 081 BPM P-R Int : 222 ms QRS Dur : 102 ms QT Int : 410 ms P-R-T Axes : 049 022 191 degrees QTc Int : 476 ms Sinus rhythm. with 1st degree AV block. Possible Left atrial enlargement T wave abnormality, consider anterolateral ischemia Prolonged QT Abnormal ECG When compared with ECG of 28-MAY-2017 10:42, premature ventricular complexes. are no longer present Unconfirmed Result
[2017-06-28] MEDS ORDERED: NEURONTIN PO SCH (09:00)
--- NOTE | 2017-06-28 10:34 | Diag Imaging Result Doc PS360 ---
EXAM: CT CERV/THOROAC/LUMB SPINE W/O HISTORY: sudden equal weakness of all extremities TECHNIQUE: CT cervical spine without contrast. CT thoracic spine without contrast. CT lumbar spine without contrast. Dose reduction protocol. COMPARISON: None. FINDINGS: Cervical spine: There is good alignment to the cervical spine. No precervical soft tissue swelling. No subluxation. There are small degenerative bone spurs. No fracture. No disc herniation or spinal stenosis identified. Thoracic spine: There is good alignment to the thoracic spine. No compressed vertebra. No other fracture. No subluxation. Prominent bridging ossifications throughout the mid and lower thoracic spine. No disc herniation or spinal stenosis identified. Lumbar spine: There is good alignment to the lumbar spine. No compressed vertebra. No other fracture. No subluxation. There are small degenerative bone spurs. The lower lumbar spine is not included on the axial cuts. Sagittal images reveal bulging discs in the lower lumbar spine with at least [id number] spinal stenosis at L4-5. IMPRESSION: Cervical spine: Mild degenerative changes Thoracic spine: Prominent degenerative bone spurring, but no disc herniation or spinal stenosis. Lumbar spine: Disc bulge with spinal stenosis at L4-5. An MRI may be beneficial. Electronically signed by Severo Cherry 06/28/2017 10:32 AM
--- NOTE | 2017-06-28 10:47 | Diag Imaging Result Doc PS360 ---
EXAM: MRA BRAIN W/O CONTRAST HISTORY: stroke like symptoms TECHNIQUE: MR angiography of of the brain. MIP images obtained. COMPARISON: None. FINDINGS: There is normal flow within each distal internal carotid artery. There is normal flow within each anterior and middle cerebral artery. Normal flow in the basilar artery and the posterior cerebral arteries. No occlusions. No aneurysm. IMPRESSION: Normal MR angiography of the [place]. Electronically signed by Severo Cherry 06/28/2017 10:45 AM
--- NOTE | 2017-06-28 10:57 | Diag Imaging Result Doc PS360 ---
EXAM: MRI BRAIN W/O CONTRAST HISTORY: stroke like symptoms TECHNIQUE: Axial, sagittal, and coronal images obtained in multiple sequences COMPARISON: CT brain from 06/27/2017 and an MRI from 05/09/2017. FINDINGS: There is a recent lacunar infarct in the right side of the marybeth measuring approximately 8 mm. Possible old lacunar infarct in the left side of the marybeth. The left side is unchanged from the prior exam. There are minimal microvascular ischemic changes. No mass or midline shift. No hydrocephalus. No epidural or subdural fluid collection. Normal orbits. No sinus opacification although there is a small amount of fluid in the left mastoid sinus. IMPRESSION: 1.Recent lacunar infarct in the right side of the marybeth. 2.Old lacunar infarct in the left marybeth. 3.Mild chronic microvascular ischemic changes. 4.A preliminary report was called [facility] [place] and given to the charge nurse. Electronically signed by Severo Cherry 06/28/2017 10:54 AM
[2017-06-28] MEDS: HUMULIN R SUBQ SCH ×2 (11:40→16:40)
--- NOTE | 2017-06-28 12:39 | PROGRESS NOTE ---
DATE: 06/28/2017 SUBJECTIVE: As per nurse on [place], in the morning he was definitely more confused with weakness noted in the left side of his body and facial droop, so, he was immediately sent for an MRI of the brain and an MRA of the brain too which basically showed an acute stroke. The patient now is feeling much better with no headache at this time. OBJECTIVE: Vital Signs: Temperature 97.6 degrees, heart rate 79, respiratory 140/99, O2 saturation 100% on room air. General examination: This is a 62-year-old, -[place] male lying in bed, in no acute distress. HEENT: Head is normocephalic and atraumatic. Anicteric sclerae and pale conjunctivae. Mucous membranes moist. Neck supple. No JVD noted. No carotid bruits. No lymphadenopathy. No thyromegaly. Cardiovascular: S1, S2 heard. No murmurs, gallops, or rubs. Regular rate and rhythm. Respiratory: Clear bilaterally to auscultation. No work of breathing or using accessory muscles. Abdomen soft, nontender to palpation. Bowel sounds present. No organomegaly. Extremities: No clubbing, cyanosis, or edema. Peripheral pulses present in both legs. Neurologic: There is motor strength in the left upper arm 3/5. The rest of the other extremities is 5/5. Sensitivity intact. Patient alert and oriented x3. Left facial droop noted too. No dysarthria noted. LABORATORY DATA: White cell count 5.48, hemoglobin 12.8, hematocrit 39.7, platelets 138,000. The BMP is unremarkable except creatinine 1.7 which is his baseline. ASSESSMENT: 1. Acute right lacunar infarct in the right side of the marybeth. 2. Old lacunar infarct in the left marybeth. This is a new finding for this patient. Apparently, he has not had any stroke before. Apparently, this happened in the morning. We are not completely sure. In any case, patient has been started on aspirin. MRA of the brain was also requested, which basically showed normal MRA of the [place]. At this point, the neurology consultation is pending. We will follow his recommendations. 3. Orthostatic hypotension. Blood pressure is definitely much better now. Blood pressure has been fine after we held antihypertensive medication. 4. Chronic kidney disease, stage 3. Creatinine around baseline. 5. Systolic and diastolic ventricular dysfunction. The patient is not in any acute exacerbation. 6. Diabetes mellitus, type 2. We are going to check hemoglobin A1c and we will continue with home medications and sliding scale insulin. 7. Hypertension. We have held his antihypertensive medication because of the blood pressure and now that he has had this recent stroke, we are going to allow permissive hypertension for at least 72 hours. 8. Physical deconditioning. Physical therapy will be involved in his care because of his recent stroke. 9. Gastrointestinal prophylaxis with Protonix. cc: Magan Roblero MD
[2017-06-28] MEDS: VITAMIN D PO SCH (12:59)
[2017-06-28] MEDS: HEPARIN SUBQ SCH ×2 (13:00→20:50)
[2017-06-28] MEDS: PRILOSEC PO SCH (13:00)
[2017-06-28] MEDS: PROTONIX PO SCH (13:00)
[2017-06-28] MEDS: FLONASE NAS SCH ×2 (13:00→20:40)
[2017-06-28] MEDS: ASPIRIN PO SCH (13:03)
[2017-06-28 13:16] LABS: HEMOGLOBIN A1C 6.4 % (4.8-6.0)
--- NOTE | 2017-06-28 13:21 | CONSULTATION ---
DATE OF CONSULTATION: 06/28/2017 HISTORY OF PRESENT ILLNESS: Mr. Hylton is 62 years old and it looks like he has had another stroke. He reports sudden onset yesterday of weakness in the legs and he quickly discovered that was mainly left leg weakness. There was some left facial drooping. He presented to the hospital. Workup here includes initial noncontrast CT of the head yesterday afternoon reported to show chronic changes, but no definite acute finding. Brain MRI this morning shows evidence of recent right pontine lacunar infarction, old left pontine lacunar infarction, prominent microvascular ischemic change in both hemispheres. Brain MRA today is unremarkable. Noncontrast cervical spine CT shows some degenerative changes, but nothing prominent. He has risk factors for stroke including hypertension and diabetes mellitus. He reports no previous problems with cholesterol. He was taking daily aspirin. He reports he has been taking his medicines as directed, not missing doses. He had presented to the hospital about 2-1/2 months ago with global encephalopathy, minor metabolic findings, elevated liver enzymes and urine toxicology evidence of illicit drug use. We do not have urine toxicology this admission. He reports taking alprazolam a few doses per week and hydrocodone a few doses per week, and he has prescriptions for both of those. Lab this admission shows mild anemia, mildly elevated BUN and creatinine which are not far from baseline, elevated blood sugars. On exam, Mr. Hylton is awake, alert, attentive, appropriate, oriented. Speech is not dysarthric. Language function is intact. Memory seems good. Head and neck are unremarkable. Visual guthrie are full, tested grossly by confrontational finger counting. Extraocular movements are full. Facial motility is diminished on the left in an upper motor neuron pattern. Gag is intact. Tongue is midline. He can hear. Shoulder shrug is a little bit diminished on the left. He has left hemiparesis grading 4/5 at the deltoid, wrist extensor, iliopsoas and anterior tibialis. Tone is increased in the left arm. He did rapid alternating movements better with the right hand than the left. He did a little better with [id number] on the right than with the left. I did not test his gait. He reports good pinprick appreciation throughout and, if anything, he has better pinprick appreciation over the left limbs than the right. Plantar response is silent bilaterally. Reflexes are absent at the ankles bilaterally. Head is unremarkable. Neck is supple. IMPRESSION: Left hemiparesis, relatively pure motor deficit. This is consistent with the MRI evidence of acute or subacute left pontine infarction. We reviewed his risk factors. I encouraged him to be aggressive with management of those. Lipid profile was last done in January and was unremarkable. We might repeat that and I think it would be reasonable to empirically add a statin drug unless there is contraindication or previous history of intolerance. I would continue his daily aspirin, continue treating blood sugar aggressively, and continue treating blood pressure cautiously. His systolic blood pressure was 93 on admission, but has been 120s to 140s and stable since then. In light of this likely small-vessel lesion, I do not think we have to permit hypertension for very long. I do not have any other suggestion now. Thanks for asking me to see Mr. Hylton. cc: Duyen Saucedo III, MD MTDD
[2017-06-28 13:49] LABS: HDL 59 mg/dL (35-55); LDL 138 mg/dL; TRIGLYCERIDES 146 mg/dL (39-160); VLDL 29 mg/dL
[2017-06-28] MEDS: LANTUS SUBQ SCH (20:50)
[2017-06-29] MEDS: HUMULIN R SUBQ SCH ×4 (06:57→12:07)
[2017-06-29] MEDS: LANTUS SUBQ SCH (07:02)
[2017-06-29] MEDS ORDERED: COLACE PO SCH (09:00)
[2017-06-29] MEDS: FLONASE NAS SCH (09:27)
[2017-06-29] MEDS: MYLICON PO SCH ×2 (09:28→14:05)
[2017-06-29] MEDS: PRILOSEC PO SCH (09:28)
[2017-06-29] MEDS: PROTONIX PO SCH (09:28)
[2017-06-29] MEDS: ASPIRIN PO SCH (09:28)
[2017-06-29] MEDS: VITAMIN D PO SCH (09:29)
[2017-06-29] MEDS: HEPARIN SUBQ SCH (09:29)
--- NOTE | 2017-06-29 09:46 | PROGRESS NOTE ---
DATE: 06/29/2017 SUBJECTIVE: Mr. Hylton reports he is a little better with left arm power. He has not attempted walking this morning. He does not have any new complaints. PLAN: I do not have any new suggestion from a neurologic standpoint. I reviewed his risk factors again with him at the bedside and again encouraged him to be aggressive with management of those. Thanks for asking me to see Mr. Hylton. cc: Duyen Saucedo III, MD
[2017-06-29 13:41] VITALS: BP 130/82
--- NOTE | 2017-06-29 19:31 | DISCHARGE SUMMARY ---
ADMISSION DATE: 06/27/2017 DISCHARGE DATE: 06/29/2017 DISCHARGE DIAGNOSES: 1. Recent lacunar infarct on the right side of the marybeth. 2. Orthostatic hypotension resolved. 3. Chronic kidney disease stage 3. 4. History of congestive heart failure systolic and diastolic. 5. Diabetes mellitus type 2. 6. Essential hypertension. CONSULTATIONS: Dr. Saucedo from Neurology. PROCEDURES: 1. Head CT showed chronic ischemic changes but no evidence of acute disease. 2. Brain MRI showed recent lacunar infarcts on the right side of the marybeth with old lacunar infarcts in the left marybeth, and mild chronic microvascular ischemic changes. 3. MRA of the brain showed normal [place] [facility] [place] [facility] [place], MRI angiography. 4. Cervical, thoracic and lumbar spine CT showed cervical spine with mild degenerative changes. Thoracic spine with prominent degenerative bone spurring but not disc herniation or spinal stenosis. Lumbar spine showed a disc bulge with spinal stenosis at L4-L5. HOSPITAL COURSE: 1. This is a 62-year-old, male well known to our service, who presented to the emergency department complaining of cough for the last 2 days and sinus drainage. Denies any fever or chills. He also complains of dizziness so he went to the emergency department. He was found to have a blood pressure of 93 systolic. and he was positive for that. Initially he was admitted overnight for these episodes of low blood pressure but the next morning the patient's mental status changed and it was easily noticed that the patient started having weakness in the left side of his body. No dysphasia. No expressive aphasia noted. For suspicion of a stroke we ordered an MRI which confirmed the findings of acute lacunar stroke. That happened in the right side of the marybeth. The patient started working with physical therapy and he was doing good, able to walk around with a walker. The patient reports that he had physical therapy already scheduled 3 times per day in a facility center so I guess considering that his motor sign is not too bad, I think this patient can be seen as an outpatient in this facility for treatment of this stroke. The rest of the medical conditions including chronic kidney disease and left ventricular dysfunction were stable and no worsening renal function or CHF. Diabetes gunn the patient was on sliding scale insulin. 2. Hypertension. See point #1. 3. Gastrointestinal prophylaxis. We will use Protonix 40 mg p.o. daily. CONDITION ON DISCHARGE: Patient is being discharged in stable condition. DISCHARGE PHYSICAL EXAMINATION: Vital Signs: Temperature 97.7 degrees, heart rate 80, respiratory rate 16, blood pressure 130/82, O2 saturation 100% on room air. General Examination: This is a 62-year-old, male, lying in bed, in no acute distress. HEENT: Normocephalic, atraumatic. Anicteric sclerae. Pale conjunctivae. Mucous membranes moist. No JVD. No carotid bruits. No lymphadenopathy. No thyromegaly. Cardiovascular: S1, S2 heard. No murmurs, gallops, or rubs. Regular rate and rhythm. Respiratory Examination: Clear bilaterally to auscultation. No work of breathing or using accessory muscles. Abdomen: Soft, nontender to palpation. Bowel sounds present. No organomegaly. Extremities: No clubbing, cyanosis, or edema. Peripheral pulses present in both legs. Neurological examination: Patient alert and oriented x3. Moves 4 extremities. Cranial nerves 2-12 intact. Left upper extremity with 3/5 motor strength. The rest of the physical examination is okay. No change in sensitivity. The patient is alert and oriented x3. Follows commands. DISCHARGE DISPOSITION: The patient is going home. He is going to have physical therapy as an outpatient which has been already scheduled by the patient. LIST OF MEDICATIONS: 1. Aspirin 325 1 tablet p.o. daily. 2. Atorvastatin 40 mg 1 tablet p.o. at bedtime. 3. Lantus 20 units subcutaneous at bedtime. 4. Remeron 50 mg p.o. at bedtime. 5. Citalopram 20 mg p.o. at bedtime. 6. Entresto 49-51 mg 1 tablet p.o. twice daily. 7. Vitamin D3, 1000 units 1 p.o. daily. 8. Tamsulosin 0.4 mg 1 tablet p.o. daily. 9. Coleman 5, 1 tablet p.o. every 4 hours as needed for pain. 10. Protonix 40 mg 1 tablet p.o. daily. 11. Gabapentin 100 mg 1 tablet p.o. b.i.d. 12. Gabapentin 300 mg p.o. at bedtime. 13. Xanax 1 mg p.o. twice daily. 14. Coreg 6.25, 1 tablet p.o. b.i.d. FOLLOWUP: Primary care physician in 1-2 weeks. cc: Magan Roblero MD
== END 2017-06-29 17:59 | disposition home health service (06) ==
LOC: ED 13:54 → SUATTDRO 18:00 → 3N 18:00
PROVIDERS: ATTEND Internal Medicine

== ENCOUNTER 2019-07-30 16:07 | Inpatient (IN) ==
--- NOTE | 2019-07-30 16:42 | EKG Report ---
Test Performed on : 07/30/2019 4:31:32 PM Test Reason : SYNCOPE Blood Pressure : / mmHG Vent. Rate : 078 BPM Atrial Rate : 078 BPM P-R Int : 248 ms QRS Dur : 102 ms QT Int : 390 ms P-R-T Axes : 056 033 098 degrees QTc Int : 444 ms Sinus rhythm. with 1st degree AV block. T wave abnormality, consider anterolateral ischemia Abnormal ECG When compared with ECG of 02-MAR-2019 22:47, No significant change was found Unconfirmed Result
--- NOTE | 2019-07-30 17:09 | PROVIDER DOCUMENTATION ---
HPI-General Adult - General Chief Complaint: Weakness Stated Complaint: WEAKNESS,SYNCOPE,HEAD INJURY Time Seen by Provider: 07/30/19 16:59 Source: patient Allergies/Adverse Reactions: Patient Allergies Allergy/AdvReac Type Severity Reaction Status Date / Time No Known Allergies Allergy Verified 07/30/19 17:30 Home Medications: Home Medication List Medication Instructions Recorded Confirmed Last Taken Type Insulin Glargine,Hum.rec.anlog 20 unit SQ HS 04/13/17 07/30/19 09/30/18 11:55 History [Lantus Solostar] 12 units Aspirin [Aspir-Low] 81 mg PO DAILY 01/30/18 07/30/19 09/30/18 History Hydrocodone/APAP 7.5 mg/325 mg 10 mg PO TID PRN 01/30/18 07/30/19 09/30/18 History [[place]-7.5] Sacubitril/Valsartan [Entresto 24 1 tab PO BID 01/30/18 07/30/19 10/01/18 07:30 History mg-26 mg Tablet] Amlodipine [Norvasc] 5 mg PO DAILY #30 tab 07/03/18 07/30/19 10/01/18 07:30 Rx Clonidine [Catapres] 0.3 mg PO DAILY #30 tab 07/03/18 07/30/19 10/01/18 07:30 Rx Lactulose 30 ml PO DAILY PRN 09/30/18 07/30/19 09/30/18 History Omeprazole [Prilosec] 40 mg PO DAILY #30 capsule. 10/01/18 07/30/19 Unknown Rx Atorvastatin Calcium 20 mg PO DAILY 07/30/19 07/30/19 Unknown History - History of Present Illness -Gen Adult Nature of Presenting Problems: Pt. is 64 yom that presents with c/o bilateral leg weakness and reports he fell and hit his head but denies any LOC. He reports he is dizzy but denies any other complaints. Location of Pain/Injury: reports: head. denies: none, face, mouth, neck, chest, upper extremity, hand(s), abdomen, back, pelvis, genitalia, lower extremity, feet, upper body, lower body, generalized, other Pain Radiation: reports: no radiation. denies: arm(s), back, buttocks, chest, epigastric, feet, groin, jaw, flank (L), legs (lower), LLQ, LUQ, neck, periumbilical, flank (R), RLQ, RUQ, shoulder(s), scapula, scrotal, sternal notch, suprapubic, legs (upper), urethral, vaginal, other Quality of Pain: reports: aching. denies: burning, pressure, tightness Severity: reports: mild. denies: moderate, severe Onset/Duration: reports: abrupt, this afternoon Timing: reports: still present. denies: improving, gone now, changing over time, getting worse Context/Activities at Onset: reports: light activity. denies: none, moderate activity, vigorous activity, recent emotional stress, recent physical stress, recent trauma history, possible bad food, cold exposure, eating, out of country travel, rest, sleep, sexual activity, other Modifying Factors: improves with: nothing Associated Symptoms: reports: dizziness, headaches, weakness. denies: denies symptoms, anxiety, arm pain, back/neck pain, chest pain, constipation, cough, diaphoresis, diarrhea, EENT symptoms, fatigue, fever/chills, genitourinary problems, heartburn, joint pain, loss of appetite, malaise, muscle aches, sinus congestion/drainage, nausea, rash, seizure, shortness of breath, sensory/motor loss, pain with inspiration, swelling/mass in abdomen, syncope, vomiting, trouble walking, other Similar Symptoms Previously?: No Recently seen or treated by another doctor?: No Review of Systems - Adult - REVIEW OF SYSTEMS - ADULT Constitutional: reports: no symptoms reported Eyes: reports: no symptoms reported Ears, Nose, Mouth & Throat: reports: no symptoms reported Cardiovascular: reports: no symptoms reported Respiratory: reports: no symptoms reported Gastrointestinal: reports: no symptoms reported Genitourinary: reports: no symptoms reported Musculoskeletal: reports: see HPI, muscle weakness. denies: bone pain, joint swelling, neck pain Integumentary: reports: no symptoms reported Neurological: reports: see HPI, dizziness/vertigo. denies: numbness, seizure, tremors Psychiatric: reports: no symptoms reported Past History - Adult - PAST MEDICAL HISTORY-ADULT Review of Records: reports: Old Records Reviewed, Nursing Assessment Review, Medications Reviewed, Social history reviewed & non-contributory. Major Childhood Illnesses: reports: denies history Cardiovascular: reports: CHF, HTN Respiratory: reports: denies history Gastrointestinal: reports: denies history Obstetrical/Gynecological: reports: denies history Genitourinary: reports: denies history Musculoskeletal: reports: arthritis Neurological: reports: CVA (in 2017), Seizures/Epilepsy Psychiatric: reports: depression Endocrine/Immune: reports: Diabetes Other Conditions: reports: denies history - PRIOR SURGERIES/PROCEDURES Surgical/Procedure History: reports: orthopedic (extremity), other (defibrillator placement) - IMMUNIZATION STATUS Childhood Immunizations: See Nurse Assessment Flu Vaccine: See Nurse Assessment - FAMILY HISTORY Family History: reviewed, not pertinent - SOCIAL HISTORY Smoking: denies Physical Exam-General - PHYSICAL EXAM-ADULT Initial Vital Signs Reviewed: Yes - CONSTITUTIONAL General Appearance: alert, mild distress. negative: anxious, slow to respond, obtunded, combative - EYES Eyes: PERRL/EOMI, pink conjunctivae - HEAD, EARS, NOSE, MOUTH & THROAT HENMT: normocephalic/atraumatic, moist mucous membranes - NECK Neck: non-tender, full range of motion, supple, normal inspection - RESPIRATORY Respiratory: lungs clear, normal breath sounds - CARDIOVASCULAR Cardiovascular: normal peripheral pulses, regular rate, rhythm, no edema - GASTROINTESTINAL (ABDOMEN) Abdominal Exam: normal bowel sounds, non tender, soft - LYMPHATIC Lymphatic: no adenopathy - MUSCULOSKELETAL Back Exam: normal inspection, no CVA tenderness, no vertebral tenderness Extremity: normal range of motion, non-tender, normal gait, normal inspection Peripheral Pulses: radial (R): 2+, radial (L): 2+ - SKIN Integumentary: normal color, normal turgor, warm/dry - NEUROLOGIC Neurologic: grossly normal, no motor/sensory deficits - PSYCHIATRIC Psych/Mental Status: normal mood/affect, normal thought content, normal thought process, oriented x 3. negative: anxious, paranoid, tearful Progress - PLAN OF CARE/RESULTS Progress/Plan/Lab Results: Vital Signs - 8 hr 07/30/19 16:29 Temperature 98.1 F Pulse Rate 79 Respiratory Rate 12 Blood Pressure 135/83 O2 Sat by Pulse Oximetry 98 Orders Category Date Time Status Saline Loc NOW Care 07/30/19 17:05 Active CHEST-1 VIEW [RAD] Stat Exams 07/30/19 17:[address] HEAD/C-SPINE W/O CONTRAST [CT] Stat Exams 07/30/19 17:06 Ordered CBC WITH ELECTRONIC DIFF [HEME] Stat Lab 07/30/19 17:05 Uncollected CK PROFILE [SP CHEM] Stat Lab 07/30/19 17:05 Uncollected COMPREHENSIVE METABOLIC PANEL [CHEM] Stat Lab 07/30/19 17:05 Uncollected URINALYSIS W/POSS RFLX CULT [URINALYSIS] Stat Lab 07/30/19 17:06 Uncollected EKG [EKG] Stat Ther 07/30/19 16:21 Draft EKG [EKG] Stat Ther 07/30/19 17:05 Ordered Laboratory Tests 07/30/19 07/30/19 07/30/19 16:37 16:37 22:00 WBC 5.83 RBC 4.18 L Hgb 13.4 L Hct 38.9 L MCV 93.1 MCH 32.1 H MCHC 34.4 RDW Std Deviation 13.0 Plt Count 143 MPV 12.6 H Immature Gran % (Auto) 0.0 Neut % (Auto) 58.5 Lymph % (Auto) 31.9 Keith % (Auto) 7.5 Eos % (Auto) 1.9 Baso % (Auto) 0.2 Immature Gran # (Auto) 0.00 Neut # (Auto) 3.41 Lymph # (Auto) 1.86 Keith # (Auto) 0.44 Eos # (Auto) 0.11 Baso # (Auto) 0.01 Sodium 142 Potassium 4.4 Chloride 105 Carbon Dioxide 25 Anion Gap 12 BUN 25 H Creatinine 1.7 H Estimated GFR/1.73 m2 49 BUN/Creatinine Ratio 15 Glucose 150 H Calculated Osmolality 290 Calcium 9.0 Total Bilirubin 0.74 AST 23 ALT 20 Alkaline Phosphatase 83 Creatine Kinase 171 Total Protein 6.8 Albumin 4.2 Globulin 2.6 Albumin/Globulin Ratio 1.6 Urine Source CLEAN CATCH Discussed results and plan of care with patient. Patient agrees with plan and verbalizes understanding. Result Diagrams: 07/30/19 16:37 07/30/19 16:37 - XRAY 1 XRAY Study: Chest ([facility] - [address], [address], [place] [address] [facility] - [address] [place] [address] Department of Imaging Patient: PRESTON POMPA Date: 07/30/19MR#: [id number] : 1955DM Status: REG ERAcct#: [id number] Age/Sex: 64/MRoom/Bed: Loc: ED Ordering Physician: Foreign May Family Physician: Ronald Posadas MD Reason for Procedure: weakness Signed EXAM: CHEST-1 VIEW HISTORY: weakness TECHNIQUE: Chest single view COMPARISON: 09/13/2018 FINDINGS: Poor inspiratory effort. The heart is not enlarged. Left pacemaker. The vessels are not distended. There are no infiltrates. No effusion identified. IMPRESSION: Negative exam. Electronically signed by Severo Cherry 07/30/2019 5:19 PM 07/30/191718 Interpreting Physician: Severo Cherry MD Dictated Date/Time: 07/30/191718 cc: Foreign May; Ronald Posadas MD) XRAY Interpretation: See note - CT/MRI 1 CT Study: Cervical Spine ([facility] - [address] [place], [place] [id number] [facility] - [address] [place] [address] Department of Imaging Patient: PRESTON POMPA Date: 07/30/19MR#: [id number] : 1955DM Status: REG ERAcct#: [id number] Age/Sex: 64/MRoom/Bed: Loc: ED Ordering Physician: Foreign May Family Physician: Ronald Posadas MD Reason for Procedure: Weakness to both lower extremity Signed EXAM : CT HEAD/C-SPINE W/O CONTRAST HISTORY: Weakness to both lower extremity TECHNIQUE: 1. CT head without contrast 2. CT cervical spine without contrast COMPARISON: Head compared to 02/14/2018 FINDINGS: Head: No parenchymal hemorrhage. No epidural or subdural hematoma. No subarachnoid hemorrhage. Small old infarcts present on the prior study. No mass identified on this noncontrasted exam. No hydrocephalus. No sinus opacification. Cervical spine: There is good alignment to the cervical spine. No precervical soft tissue swelling. No subluxation. No fracture. Small degenerative bone spurs. No disc herniation seen. IMPRESSION: Head: No hemorrhage. No acute abnormality identified. Cervical spine: No acute fracture. This exam was performed using automated exposure control, adjustment of mA or kV according to patient size, and/or use of iterative reconstruction technique. Electronically signed by Severo Cherry 07/30/2019 6:17 PM 07/30/19 181 Interpreting Physician: Severo Cherry MD Dictated Date/Time: 07/30/191813 cc: Foreign May; Ronald Posadas MD), Head CT Results: See note - CONSULTS/PCP/HOSPITALIST Notification #1 *Consult/PCP/Hospitalist*: Dr. Greene Time Discussed: 22:30 Reason/Comments: Admission Consult Disposition: Will see in ED, Admit Departure - Departure Date of Disposition Decision: 07/30/19 Time of Disposition Decision: 22:14 DIAGNOSIS: Renal insufficiency, Chronic anemia TIA (transient ischemic attack) Qualifiers: Transient cerebral ischemia type: unspecified Qualified Code(s): G45.9 - Transient cerebral ischemic attack, unspecified Disposition: ADMITTED INPATIENT 09 Certified Medical Emergency: Emergent Condition: Stable Referrals and Follow-Ups: Ronald Posadas MD [Primary Care Provider] - - Critical Care Note This patient required my direct & personal management of CC.: No Attestation - Physician/ SYLVIA Attestation Patient care was provided by Advanced Practice Provider:: Yes Advanced Practice Provider:: Foreign May Advanced Practice Provider documentation review:: The Mid-level provider documentation, treatment plan and medical decision making was reviewed by the physician who agrees with all treatment and medical decision making by the MLP. The physician spent face to face time with patient:: No Advanced Practice Provider documentation review:: Supervising physician onsite and consulted in the evaluation and care of this patient. The physician did not have a face to face encounter with the patient. - NIH Stroke Scale NIH Type: Initial Evaluation Level of Consciousness: 0-Alert LOC Questions (ask month and age): 0-Answers Both Correctly LOC Commands (ask to open & close eyes;make a fist, let go): 0-Obeys Both Correctly Best Gaze (horizontal eye movement): 0-Normal Visual (use finger movement, counting or visual threat): 0-No Visual Loss Facial Palsy (show teeth or raise eyebrows & close eyes tght: 1-Minor Paralysis (minimal right mouth droop) Motor Function-left arm: 0-Normal Motor Function-right arm: 0-Normal Motor Function-left le-Some Effort Against [place] Motor Function-right le-Some Effort Against [place] Limb Ataxia(tmjtyo-vcsg-paacsf, or heel to zavala): 0-No Ataxia Sensory(pin prick to face,arms,trunk,legs-compare side/side): 0-No Ataxia Best Language(name item/read sentence.Ex-Down to Earth): 0-No Aphasia Dysarthria(Pt read words or say words Ex.Mama,Tip-Top,Thanks: 0-Normal Articulation Extinction and Inattention: 0-Normal NIH Total Score: 5
[2019-07-30 17:21] LABS: BASO# 0.01 X1000 (0.0-0.2); BASO% 0.2 % (0.0-0.8); EOS# 0.11 X1000 (0.0-0.7); EOS% 1.9 % (0.0-10.0); HEMATOCRIT 38.9 % (42.0-52.0); HEMOGLOBIN 13.4 g/dL (14.0-18.0); LYMPH# 1.86 X1000 (1.2-3.4); LYMPH% 31.9 % (20.5-51.1); MCH 32.1 PG (27-31); MCHC 34.4 g/dL (33-37); MCV 93.1 FL (81-99); MONO# 0.44 X1000 (0.11-0.59); MONO% 7.5 % (1.7-9.3); MPV 12.6 FL (7.4-10.4); NEUT# 3.41 X1000 (1.4-6.5); NEUT% 58.5 % (42.2-75.2); PLT 143 X1000 (130-400); RBC 4.18 XMIL (4.7-6.1); WBC 5.83 X1000 (4.8-10.8)
--- NOTE | 2019-07-30 17:21 | Diag Imaging Result Doc PS360 ---
EXAM: CHEST-1 VIEW HISTORY: weakness TECHNIQUE: Chest single view COMPARISON: 09/13/2018 FINDINGS: Poor inspiratory effort. The heart is not enlarged. Left pacemaker. The vessels are not distended. There are no infiltrates. No effusion identified. IMPRESSION: Negative exam. Electronically signed by Severo Cherry 07/30/2019 5:19 PM
[2019-07-30] MEDS ORDERED: ANTIVERT PO ONE (17:26)
[2019-07-30 17:43] LABS: ALB/GLOB RATIO 1.6; ALBUMIN 4.2 g/dL (3.5-5.0); CREATININE 1.7 mg/dL (0.7-1.2); POTASSIUM 4.4 mmol/L (3.5-5.1); TOTAL BILIRUBIN 0.74 mg/dL (0.20-1.00); TOTAL PROTEIN 6.8 g/dL (6.3-8.3)
[2019-07-30] MEDS ORDERED: ANTIVERT ONE (17:50)
--- NOTE | 2019-07-30 18:19 | Diag Imaging Result Doc PS360 ---
EXAM : CT HEAD/C-SPINE W/O CONTRAST HISTORY: Weakness to both lower extremity TECHNIQUE: 1. CT head without contrast 2. CT cervical spine without contrast COMPARISON: Head compared to 02/14/2018 FINDINGS: Head: No parenchymal hemorrhage. No epidural or subdural hematoma. No subarachnoid hemorrhage. Small old infarcts present on the prior study. No mass identified on this noncontrasted exam. No hydrocephalus. No sinus opacification. Cervical spine: There is good alignment to the cervical spine. No precervical soft tissue swelling. No subluxation. No fracture. Small degenerative bone spurs. No disc herniation seen. IMPRESSION: Head: No hemorrhage. No acute abnormality identified. Cervical spine: No acute fracture. This exam was performed using automated exposure control, adjustment of mA or kV according to patient size, and/or use of iterative reconstruction technique. Electronically signed by Severo Cherry 07/30/2019 6:17 PM
[2019-07-30 22:05] LABS: URINE SOURCE CLEAN CATCH
[2019-07-30 22:34] LABS: UR EPITHELIAL CELLS <10 /HPF (<10); URINE BACTERIA NEGATIVE /HPF; URINE RBC <10 /HPF (<10); URINE WBC 20-40 /HPF (<10)
[2019-07-30 22:43] LABS: BILIRUBIN URINE NEGATIVE (NEGATIVE); BLOOD URINE SMALL (NEGATIVE); COLOR YELLOW; GLUCOSE URINE NEGATIVE (NEGATIVE); KETONE URINE NEGATIVE (NEGATIVE); LEUKOCYTES URINE SMALL (NEGATIVE); NITRITE URINE NEGATIVE (NEGATIVE); PH URINE 6.5; PROTEIN URINE 70 mg/dL (NEGATIVE); SP GRAVITY URINE 1.017; TURBIDITY URINE CLEAR (CLEAR); UROBILINOGEN URINE NORMAL (NORMAL)
[2019-07-31] MEDS: NORCO-10 PO PRN ×3 (01:07→21:31)
--- NOTE | 2019-07-31 04:56 | HISTORY AND PHYSICAL ---
PRIMARY CARE PHYSICIAN: Dr. Ronald Posadas MD. CHIEF COMPLAINT: Fall, lower extremity weakness. HISTORY OF PRESENTING ILLNESS: This is a 64-year-old male with a history of CVA with left-sided weakness, hypertension, diabetes mellitus type 2, chronic kidney disease, congestive heart failure and systolic dysfunction who had presented to emergency department with a 1-day history of having lower extremity weakness and falling. The patient states that his legs gave way and he was not able to get up. He was brought to the emergency department, he was evaluated and due to his overall presenting symptoms and suspicion of a possible TIA it was thought that we will place him for observation for further evaluation and management. At the time of my examination he denied any headache, fever, chills, chest pain, shortness of breath hemoptysis, melena or weight changes, but complained of lower extremity weakness. PAST MEDICAL HISTORY: Includes CVA with left-sided weakness, hypertension, diabetes mellitus type 2, chronic kidney disease, CHF, systolic dysfunction, peripheral neuropathy. PAST SURGICAL HISTORY: Right arm surgery, leg surgery, ICD. ALLERGIES: No known drug allergies. CURRENT MEDICATIONS: Include Norvasc 5 mg p.o. daily, aspirin 81 mg daily, atorvastatin 20 mg p.o. daily, clonidine 0.3 mg p.o. daily, [place] 7.5 mg 1 p.o. t.i.d, Lantus weill start 20 units subcutaneous at bedtime, omeprazole 40 mg p.o. daily, Entresto 24 mg/26 mg 1 p.o. b.i.d. SOCIAL HISTORY: No history of smoking, alcohol or illicit drug use. FAMILY HISTORY: No history of coronary disease. REVIEW OF SYSTEMS: Fourteen point review of system is as listed in the HPI. Other systems are negative. PHYSICAL EXAMINATION: GENERAL: A cooperative friendly male. He is resting comfortably now. VITAL SIGNS: Temperature 98.1 degrees, pulse 79, respirations 12, blood pressure 135/83. HEENT: Atraumatic, normocephalic. Extraocular movements intact. PERRLA. NECK: No masses. CHEST: Clear to auscultation. CARDIOVASCULAR: Regular rate and rhythm. ABDOMEN: Soft. Positive bowel sounds. EXTREMITIES: No edema. NEUROLOGIC: He is awake, alert and oriented x3. Speech is intact. Strength is 5/5 in all extremities. : No bladder distention. SKIN: Warm. LABORATORIES AND STUDIES: WBC is 5.83, hemoglobin 13.4, hematocrit 38.9, platelets 143,000. Sodium 142, potassium 4.4, chloride 105, CO2 is 25, BUN is 25, creatinine is 1.7, glucose is 150. CT of the head, no acute abnormality identified. C-spine shows no acute fracture. ASSESSMENT: This is a 64-year-old male with a history of CVA with left-sided weakness, hypertension, diabetes mellitus type 2, and chronic kidney disease who had presented to the emergency department with complaint of lower extremity weakness and subsequently he had a fall. He was brought to the emergency department and as per ED provider it was thought that possibly had a TIA. Due to these findings it was thought that we will place him for observation for further evaluation and management. 1. Suspected TIA. We will need to rule out recurrent CVA. 2. Lower extremity weakness/peripheral neuropathy. 3. Diabetes mellitus type 2. 4. Hypertension. 5. Systolic CHF compensated. PLAN: 1. We will admit the patient to the medical floor with telemetry. 2. We will check the orthostatic blood pressure and pulse. 3. We will consult Neurology. 4. The patient unable to obtain MRI due to ICD. 5. We will check B12 level and consult also possible Physical Therapy. 6. We will monitor blood glucose closely. 7. We will restart his other home medications. 8. Put the patient on DVT prophylaxis with SCDs. 9. We will continue to follow, reassess and make further recommendation based on the patient's clinical course. cc: Daryl Greene MD
[2019-07-31] MEDS: HUMULIN R SUBQ SCH ×4 (06:12→21:00)
[2019-07-31] MEDS: PRILOSEC PO SCH (06:12)
[2019-07-31 07:42] LABS: CALCIUM 8.7 mg/dL (8.8-10.2); CREATININE 1.7 mg/dL (0.7-1.2)
[2019-07-31] MEDS: ENTRESTO 24 MG-26 MG TABLET PO SCH ×2 (08:04→21:35)
[2019-07-31] MEDS: NORVASC PO SCH (08:04)
[2019-07-31] MEDS: CATAPRES PO SCH (08:04)
[2019-07-31 10:05] LABS: CHOLESTEROL 114 mg/dL (0-200); HDL 37 mg/dL (35-55); LDL 46 mg/dL; TRIGLYCERIDES 156 mg/dL (39-160); VLDL 31 mg/dL
[2019-07-31 10:12] LABS: HEMOGLOBIN A1C 6.6 % (4.8-6.0)
[2019-07-31] MEDS: LIPITOR PO SCH (11:01)
[2019-07-31] MEDS: ASPIRIN EC PO SCH (11:01)
--- NOTE | 2019-07-31 12:46 | PROGRESS NOTE ---
DATE: 07/31/2019 SUBJECTIVE: Patient reports feeling fine. Reports feeling hungry. OBJECTIVE: Vital Signs: Temperature 97.9 degrees, heart rate 82, respiratory rate 18, blood pressure 146/98 O2 saturation 97% on room air. General: This is a 64-year-old male lying in bed in no acute distress. Cardiovascular: S1, S2 heard. No murmurs, gallops, or rubs. Regular rate and rhythm. Respiratory: Clear bilaterally to auscultation. No work of breathing or using accessory muscles. Abdomen: Soft. Nontender to palpation. Bowel sounds present. No organomegaly. Extremities: No clubbing, cyanosis, or edema. Peripheral pulses present in both legs. Neurological: Patient alert and oriented x3. Motor strength is 3 to 4/5 in the left lower extremity, and also left upper extremity as well. LABORATORY DATA: Reviewed: Cholesterol is normal at 114. Hemoglobin A1c 6.6. ASSESSMENT AND PLAN: 1. TIA versus stroke. Patient has mild weakness in the left lower extremity. The CT on admission showed small old infarct. I think at this point we will continue to monitor. Patient isn't a candidate for an MRI because of the defibrillator placed for this patient. We will see what radiologist has to say. 2. Diabetes mellitus type 2. Hemoglobin A1c 6.6 which means good diabetes control. We will continue to monitor. 3. Hypertension. Blood pressure is under control. We will continue with the same management. 4. Systolic congestive heart failure. Patient is not on any exacerbation. We will continue home medications. 5. Disposition: We will start clear liquid diets on him. The patient has been ordered carotid ultrasound. We will see if this patient had an echo recently done or not. Otherwise we will order one. We will monitor this patient closely. cc: Magan Roblero MD
--- NOTE | 2019-07-31 18:59 | ECHO REPORT ---
ORDER DATE: 07/31/2019 INDICATION: Patient with stroke. M-MODE MEASUREMENTS: Left ventricle end diastole: 4.4. Left ventricle end systole: 3.7. Posterior wall: 1.1. Interventricular septum: 1.2. Left atrium: 3.1. Aortic diameter: 3.9. SUMMARY OF 2-DIMENSIONAL IMAGIN. The study is difficult. Optison was added. 2. The left ventricular chamber appears to be significantly enlarged. 3. Global left ventricular systolic function appears to be mildly impaired. Visually it appears to be on the order of 40% to 45%. The impairment appears to be global. There is some atypical contractility of the anterior ventricular septum at the apex. 4. The patient appears to have a pacemaker. 5. The mitral valve shows a mild degree of regurgitation. Tissue Doppler of septal and lateral mitral annulus averages 4.5 cm. 6. There is impaired left ventricular relaxation. 7. Pulsed wave Doppler of mitral inflow shows a reversible E/A ratio. 8. The patient seems to have frequent PACs. 9. The left atrium is mildly enlarged. 10.The right ventricle is also mildly enlarged. 11.The inferior vena cava is not dilated. 12.The tricuspid valve shows a mild degree of regurgitation. Pulmonary pressure is estimated at 35 mmHg. 13.The pulmonic valve appears to be grossly normal. 14.The aortic valve shows sclerosis of the cusps without stenosis. SUMMARY: This study shows: 1. Mildly impaired left ventricular systolic function with ejection fraction estimated to be in the range of 45% to 50% with global impairment and some question of atypical contractility of the interventricular septum, where the patient seems to have a pacemaker device. 2. Unremarkable aortic, mitral and pulmonic valves. 3. Impaired left ventricular relaxation. 4. Pulmonary pressure estimated at 35 mmHg. 5. The left ventricular chamber is markedly enlarged, and the left atrium is also mildly enlarged. Clinical correlation recommended. cc: MD Magan Mathur MD
--- NOTE | 2019-07-31 22:18 | CONSULTATION ---
DATE OF CONSULTATION: 07/31/2019 REASON FOR CONSULT: Question transient ischemic attack, lower extremity weakness. HISTORY OF PRESENT ILLNESS: This is a 64-year-old male who has been seen by Neurology in the past. He has a history of prior stroke and some residual left-sided weakness. He has had postural lightheadedness, hypertension, diabetes, peripheral neuropathy and heart failure. He comes in this time after a fall. History is from the patient and his attentive . The patient got up around 4 a.m. yesterday and felt a little woozy. He proceeded to walk to the bathroom. Got to the toilet but then tilted his head upward and had sudden onset of dizziness. He thought he might pass out. He initially endorsed lightheadedness, and subsequent to that he endorsed room-spinning sensation. He fell down, and his helped him up and helped him back into bed. He denies loss of consciousness. She also did relate the same. There was no speech difficulty. No focal weakness, no definite gait ataxia, no double vision, no swallowing difficulties or headaches. He laid in bed during the day yesterday until around 3 p.m., when he decided to come to the emergency department., as his symptoms had not really improved. His history is inconsistent. At times, he reports the symptoms would wax and wane, though never resolving during that time he was in bed, and that movement would exacerbate the symptoms. Other times, he reports, the symptoms did not really change and were not affected by movement. Again later he states that while he is here, he has mild symptoms while in bed, and they are worsened with getting up and sitting on the side of the bed. He denies recent URI symptoms though does endorse having some stuffiness or itchiness in his ears. He has a history of a remote stroke with residual predominantly left leg weakness. His previous imaging shows bilateral chronic lacunar infarcts in the basal ganglia, old lacunar infarct in the left marybeth. He had a lacunar infarct in the right marybeth an June 2017. Workup is under way for stroke. He reports he has been taking 2 baby aspirins daily. PAST MEDICAL/SURGICAL HISTORY: 1. Stroke with residual left-sided weakness, predominantly of the left lower extremity. 2. Type 2 diabetes. 3. Hypertension. 4. Heart failure. 5. Peripheral neuropathy. 6. Chronic kidney disease. 7. Reported seizure disorder when he was a teenager. FAMILY HISTORY: Negative for strokes. SOCIAL HISTORY: He is . He is a nonsmoker. No illicits. He also he also denies alcohol. He is retired ambulance driver paramedic at . Lives with his . ALLERGIES: No known drug allergies. MEDICATIONS: Include [place], aspirin, Lipitor, Entresto and Catapres. REVIEW OF SYSTEMS: Balance of 12 conducted and is otherwise negative except that detailed in the HPI. PHYSICAL EXAMINATION: Vital Signs: Afebrile. Blood pressure 123/88, pulse 69, respirations 98% on room air. General: Mr. Hylton is supine in bed. Awake alert and oriented. Speech fluent. No dysarthria. Neurologic: Attentive. Follows simple and complex commands. No language disturbance. Pupils are equal, round, and reactive. Gaze conjugate. Extraocular movements are full. Visual guthrie intact to direct confrontational testing. Face symmetric with equal activation. Facial sensation intact. Tongue is midline. Palate elevates symmetrically. Shoulder shrug is full. Motor exam: No drift. Strength is intact in the bilateral upper extremities and right lower extremity as tested. On strength testing, he actually has full power in the extremities. He feels quite strong distally and proximally. He has evidence of a distal symmetric peripheral neuropathy on sensory testing. Ankle jerks are absent. Patellar reflexes are brisk in the left knee, 2+ on the right. No clonus. Plantar response is downgoing. Diminished reflexes at the wrists bilaterally. Rapid alternating movements preserved. Finger-to- nose intact. LABS: Reviewed in the chart. BUN 21, creatinine 1.7, blood sugars mid 100s. A1c of 6.6. Urine shows 20 to 40 white cells, small leukocytes. There was no urine toxicology this admission. ASSESSMENT AND PLAN: Status post fall without loss of consciousness reported. His history is a bit inconsistent, but possible etiologies include peripheral vertigo, orthostasis, or other. He denied associated symptoms that we would typically see if this were a posterior circulation stroke. Additionally, I do not find any focal findings on my examination to this regard. Full stroke workup is under way, and we can follow up on this. I would continue his home dose of aspirin. Continue aggressive management of his stroke risk factors, as he does have a history of stroke. Physical therapy and occupational therapy. Thank you for the consultation. cc: Heena Ware MD
--- NOTE | 2019-07-31 22:56 | Carotid Study ---
DATE: 07/31/2019 JACQUARD CARD LACER: Kimi. REQUESTING PHYSICIAN: Dr. Greene. INDICATION: TIA and syncope. Exam for comparison 03/28/2017. FINDINGS: In the bilateral carotid bulbs there are mild atherosclerotic changes extending into the proximal internal carotid artery. This appears slightly worse on the right than it does on the left; however, there is no significant elevation of velocities of the antegrade vertebrals bilaterally. Estimated stenosis would be 0% to 39% bilaterally. SUMMARY: Mild atherosclerotic changes in the bilateral carotid artery systems, but no hemodynamically significant lesion. cc: MD Daryl Grigsby MD
[2019-08-01] MEDS: PRILOSEC PO SCH ×2 (05:58→06:33)
[2019-08-01] MEDS: HUMULIN R SUBQ SCH ×4 (06:33→20:47)
[2019-08-01 07:35] LABS: BASO# 0.01 X1000 (0.0-0.2); BASO% 0.2 % (0.0-0.8); EOS# 0.13 X1000 (0.0-0.7); HEMATOCRIT 41.8 % (42.0-52.0); HEMOGLOBIN 14.4 g/dL (14.0-18.0); LYMPH# 1.67 X1000 (1.2-3.4); LYMPH% 25.1 % (20.5-51.1); MCH 32.1 PG (27-31); MCHC 34.4 g/dL (33-37); MCV 93.1 FL (81-99); MONO# 0.47 X1000 (0.11-0.59); MONO% 7.1 % (1.7-9.3); MPV 12.4 FL (7.4-10.4); NEUT# 4.38 X1000 (1.4-6.5); NEUT% 65.6 % (42.2-75.2); PLT 118 X1000 (130-400); RBC 4.49 XMIL (4.7-6.1); RDW 13.1 % (11.5-14.5); WBC 6.66 X1000 (4.8-10.8)
[2019-08-01 07:57] LABS: CALCIUM 9.6 mg/dL (8.8-10.2); CREATININE 1.5 mg/dL (0.7-1.2); POTASSIUM 4.9 mmol/L (3.5-5.1)
[2019-08-01] MEDS: NORVASC PO SCH (09:30)
[2019-08-01] MEDS: ENTRESTO 24 MG-26 MG TABLET PO SCH ×2 (09:30→20:48)
[2019-08-01] MEDS: LIPITOR PO SCH (09:30)
[2019-08-01] MEDS: ASPIRIN EC PO SCH (09:30)
[2019-08-01] MEDS: CATAPRES PO SCH (09:30)
--- NOTE | 2019-08-01 11:53 | PROGRESS NOTE ---
DATE: 08/01/2019 SUBJECTIVE: Mr. Hylton presented after falling. His history provided to me today confirms prior history that he did not lose consciousness or have definite altered awareness. He did not notice any focal neurologic problem. Workup includes carotid ultrasound showing no significant stenosis. Noncontrast CT was unremarkable. Systolic blood pressures recorded supine have ranged 110s to 150s. There was approximately 50 point systolic blood pressure drop from sitting to standing recorded earlier today. He reports lightheadedness on standing. Recent episode does not appear to be a primary neurologic problem. I do not have anything to add to the medical management ongoing. I encouraged him not to be up without assistance. Thanks for asking Neurology to see Mr. Hylton. cc: MD MULUGETA Johnson III
[2019-08-01] MEDS: NS 1,000 ML IV SCH ×2 (12:05→20:46)
--- NOTE | 2019-08-01 13:02 | PROGRESS NOTE ---
DATE: 08/01/2019 SUBJECTIVE: Patient reports feeling fine. Denies any fever, chills, or any other neurological symptoms. OBJECTIVE: Vital Signs: Temperature 98.0 degrees, heart rate 80, respiratory rate 19, blood pressure 146/100, O2 saturation 97% on room air. General: This is a 64-year-old male, lying in bed, in no acute distress. Cardiovascular: S1 and S2 heard. No murmurs, gallops, or rubs. Regular rate and rhythm. Respiratory: Clear bilaterally to auscultation. No work of breathing or using accessory muscles. Abdomen: Nontender to palpation. Bowel sounds present. No organomegaly. Extremities: No clubbing, cyanosis, or edema. Peripheral pulses present in both legs. Neurological: Patient is alert and oriented x3. Moves 4 extremities. LABORATORY DATA: Reviewed. ASSESSMENT AND PLAN: 1. Transient ischemic attack. I think the weakness in the left lower extremity that he had yesterday has resolved. CT on admission showed small old infarct. In any case, I think this patient is doing fine. 2. Diabetes mellitus type 2. We will continue with sliding scale insulin and Accu-Chek before meals and also at bedtime. 3. Hypertension. Blood pressure sometimes get low so patient is dizzy, so at this point, we are going to monitor this patient closely. If patient is not feeling any more dizziness, I think we can let this patient go. 4. Systolic congestive heart failure. Patient is not in any exacerbation. With continue with home medications. 5. Disposition. I think his blood pressure is better on not complaining of any dizziness and blood pressure is under control. I think this patient can be discharged tomorrow to home. cc: Magan Roblero MD
[2019-08-01] MEDS: NORCO-10 PO PRN (20:48)
[2019-08-02] MEDS: NS 1,000 ML IV SCH ×3 (03:44→19:42)
[2019-08-02] MEDS: HUMULIN R SUBQ SCH ×4 (06:12→21:25)
[2019-08-02] MEDS: PRILOSEC PO SCH (06:14)
[2019-08-02 08:14] LABS: BASO# 0.01 X1000 (0.0-0.2); BASO% 0.2 % (0.0-0.8); EOS# 0.13 X1000 (0.0-0.7); EOS% 2.2 % (0.0-10.0); HEMATOCRIT 40.2 % (42.0-52.0); LYMPH# 1.72 X1000 (1.2-3.4); LYMPH% 29.8 % (20.5-51.1); MCH 32.6 PG (27-31); MCHC 34.8 g/dL (33-37); MCV 93.5 FL (81-99); MONO% 6.9 % (1.7-9.3); MPV 12.9 FL (7.4-10.4); NEUT# 3.52 X1000 (1.4-6.5); NEUT% 60.9 % (42.2-75.2); PLT 139 X1000 (130-400); RDW 12.9 % (11.5-14.5); WBC 5.78 X1000 (4.8-10.8)
[2019-08-02 08:46] LABS: CALCIUM 8.5 mg/dL (8.8-10.2); POTASSIUM 4.4 mmol/L (3.5-5.1)
[2019-08-02] MEDS: LIPITOR PO SCH (08:55)
[2019-08-02] MEDS: ASPIRIN EC PO SCH (08:55)
[2019-08-02] MEDS: NORVASC PO SCH (08:55)
[2019-08-02] MEDS: CATAPRES PO SCH (08:55)
[2019-08-02] MEDS: ENTRESTO 24 MG-26 MG TABLET PO SCH ×2 (08:55→21:24)
[2019-08-02] MEDS: NORCO-10 PO PRN ×2 (08:57→18:03)
[2019-08-02 09:14] LABS: CREATININE 1.7 mg/dL (0.7-1.2)
[2019-08-02] MEDS ORDERED: NS 500 ML IV ONE (09:49)
--- NOTE | 2019-08-02 11:03 | PROGRESS NOTE ---
DATE: 08/02/2019 SUBJECTIVE: Patient reports continues to be dizzy but less in comparing with yesterday. I have seen that he is a little bit orthostatic today. No other complaints noted. OBJECTIVE: Vital Signs: Temperature 98.5 degrees, heart rate 85, respiratory 19, blood pressure 140/92, O2 saturation 98% on room air. General: This is a 64-year-old, male, lying in bed, in no acute distress. Cardiovascular: S1, S2 heard. No murmurs, gallops, or rubs. Regular rate and rhythm. Respiratory: Clear bilaterally to auscultation. No work of breathing or using accessory muscles. Abdomen: Soft, nontender to palpation. Bowel sounds present. No organomegaly. Extremities: No clubbing, cyanosis, or edema. Peripheral pulses present in both legs. Neurological: Patient is alert and oriented x3. Moves 4 extremities. LABORATORY DATA: Reviewed. ASSESSMENT AND PLAN: 1. Transient ischemic attack. All those symptoms are resolved. The dizziness according to Neurology is not related to any neurological problem. CT at admission showed small old infarcts in any case, we will continue to monitor. 2. Diabetes mellitus type 2. We will continue with sliding scale insulin and Accu-Chek before meals and also at bedtime. 3. Hypertension. Blood pressure sometimes gets low and patient is dizzy. I am going to stop Norvasc. I am hesitant to stop clonidine considering his rebound hypertension, so we will continue only with that medication. We will continue with IV fluids and see that blood pressure is stabilized. 4. Systolic congestive heart failure. Patient is not in an exacerbation. We will continue to monitor. 5. Disposition. The patient is weak. The patient agreed to go to rehab facility. We are exploring the possibility to send him to [facility] rehab hospital. We will check with director social on Sunday. cc: Magan Roblero MD
[2019-08-03] MEDS: NS 1,000 ML IV SCH ×3 (04:03→20:21)
[2019-08-03] MEDS: PRILOSEC PO SCH (06:44)
[2019-08-03] MEDS: HUMULIN R SUBQ SCH ×4 (06:45→20:23)
[2019-08-03 07:33] LABS: BASO# 0.01 X1000 (0.0-0.2); BASO% 0.2 % (0.0-0.8); EOS# 0.16 X1000 (0.0-0.7); HEMATOCRIT 36.5 % (42.0-52.0); HEMOGLOBIN 12.4 g/dL (14.0-18.0); LYMPH% 33.3 % (20.5-51.1); MCH 31.6 PG (27-31); MCV 93.1 FL (81-99); MONO% 7.4 % (1.7-9.3); MPV 12.1 FL (7.4-10.4); NEUT# 3.04 X1000 (1.4-6.5); NEUT% 56.1 % (42.2-75.2); PLT 125 X1000 (130-400); RBC 3.92 XMIL (4.7-6.1); RDW 12.6 % (11.5-14.5); WBC 5.41 X1000 (4.8-10.8)
[2019-08-03 07:53] LABS: CALCIUM 8.7 mg/dL (8.8-10.2); CREATININE 1.6 mg/dL (0.7-1.2); POTASSIUM 4.5 mmol/L (3.5-5.1)
[2019-08-03] MEDS: LIPITOR PO SCH (09:10)
[2019-08-03] MEDS: ASPIRIN EC PO SCH (09:10)
[2019-08-03] MEDS: CATAPRES PO SCH (09:10)
[2019-08-03] MEDS: NORCO-10 PO PRN ×2 (09:10→17:05)
[2019-08-03] MEDS: ENTRESTO 24 MG-26 MG TABLET PO SCH ×2 (09:10→20:22)
--- NOTE | 2019-08-03 12:03 | PROGRESS NOTE ---
DATE: 08/03/2019 SUBJECTIVE: The patient reports feeling fine, but is still dizzy when he tries to stand up. As soon as he lays back and does not move his head, he does not have any dizziness. OBJECTIVE: Vital Signs: Temperature 98.3 degrees, heart rate 20, respiratory rate 18, blood pressure 156/93, O2 saturation 98% on room air. General: This is a 64-year-old male, lying in bed in no acute distress. Cardiovascular: S1, S2 heard. No murmurs, gallops, or rubs. Regular rate and rhythm. Respiratory: Clear bilaterally to auscultation. No work of breathing or using accessory muscles. Abdomen: Soft, nontender to palpation. Bowel sounds present. No organomegaly. Extremities: No clubbing, cyanosis, or edema. Peripheral pulses present in both legs. Neurological: The patient is alert and oriented x3. Moves all 4 extremities. LABORATORY DATA: Reviewed. ASSESSMENT AND PLAN: 1. Transient ischemic attack. That is basically the reason why this patient was admitted to the hospital, but all those symptoms have resolved. At this point, will continue to monitor this patient closely. Dizziness that he complained of at admission initially was thought to be related to stroke, but will rule out any stroke. Also, Neurology mentioned in his note that that symptom is not related to any neurological problems. It is important to remark that CT of the head on admission showed small old infarct. He was also orthostatic, so he was placed on intravenous fluids, and also one medication, Norvasc, has been stopped. Blood pressure is much more stable in the range of 140s to 150s. He is not orthostatic anymore. If he persists to have dizziness, we may need to consult ENT. 2. Diabetes mellitus type 2. Will continue with sliding scale insulin and Accu-Chek before meals and also at bedtime. 3. Hypertension. Blood pressure is much better now. We have to stopped Norvasc, and blood pressure is much better. No orthostasis noted. 4. Systolic congestive heart failure. The patient is not in any exacerbation. Will continue to monitor this patient closely. 5. Disposition. The patient is weak. We have consulted geriatric social work professor to look for a bed in rehab facility. I was informed yesterday that apparently, his insurance company is planning to deny coverage for rehab. Will check with geriatric social work professor tomorrow if there is anything that we can do for this patient. cc: Magan Roblero MD
[2019-08-04] MEDS: NORCO-10 PO PRN ×3 (01:37→18:39)
[2019-08-04] MEDS: NS 1,000 ML IV SCH ×3 (04:19→20:33)
[2019-08-04] MEDS: PRILOSEC PO SCH (06:18)
[2019-08-04] MEDS: HUMULIN R SUBQ SCH ×4 (06:18→22:38)
[2019-08-04] MEDS: LIPITOR PO SCH (10:08)
[2019-08-04] MEDS: ENTRESTO 24 MG-26 MG TABLET PO SCH ×2 (10:08→20:33)
[2019-08-04] MEDS: ASPIRIN EC PO SCH (10:08)
[2019-08-04] MEDS: CATAPRES PO SCH (10:08)
[2019-08-04] MEDS ORDERED: ANTIVERT PO ONE (12:07)
[2019-08-04] MEDS ORDERED: ANTIVERT PO PRN (12:07)
--- NOTE | 2019-08-04 12:35 | PROGRESS NOTE ---
DATE: 08/04/2019 SUBJECTIVE: Patient has no major complaints except he still complaining of dizziness. He did work with PT, although I do not see a recent PT note. He has not had that, but he was able to ambulate with no major difficulties. OBJECTIVE: Cardiovascular: Regular rate and rhythm. Pulmonary: Bilateral breath sounds clear to auscultation. Abdomen: Soft, nontender, nondistended. Bowel sounds are positive. Neurologic: Nonfocal. HEENT: On ear exam, there was some cerumen in the ear canal, but the tympanic membranes looked intact. No fluid behind the ears. PROBLEM LIST: 1. Persistent dizziness, which we do not really have a clear etiology for. He is not orthostatic. I am going to do a trial of meclizine and see if that helps. He is ambulating, so I do not think this necessarily needs to keep him in the hospital and he has no options for rehab at this point because he is not qualifying for rehab. He is not on anything that would necessarily cause this, so we will try meclizine. If he is doing okay, anticipate we are going to have to discharge him home with home PT and those things. 2. Diabetes, stable currently. 3. Hypertension is improved. No more orthostatics. His congestive heart failure is compensated. DISPOSITION: Anticipate discharge tomorrow. We will try to set up home PT and see how he does. cc: Joshua Lanza MD
[2019-08-05] MEDS: NS 1,000 ML IV SCH (05:10)
[2019-08-05] MEDS: PRILOSEC PO SCH (06:07)
[2019-08-05] MEDS: HUMULIN R SUBQ SCH (06:09)
[2019-08-05] MEDS: CATAPRES PO SCH (09:24)
[2019-08-05] MEDS: LIPITOR PO SCH (09:24)
[2019-08-05] MEDS: ENTRESTO 24 MG-26 MG TABLET PO SCH (09:24)
[2019-08-05] MEDS: ASPIRIN EC PO SCH (09:24)
[2019-08-05] MEDS: NORCO-10 PO PRN (09:28)
[2019-08-05 12:03] VITALS: BP 148/91
--- NOTE | 2019-08-05 14:10 | DISCHARGE SUMMARY ---
ADMISSION DATE: 07/31/2019 DISCHARGE DATE: 08/05/2019 The patient is doing well. He is still complaining of dizziness, but he is able to ambulate. He is not quite orthostatic because he is hypertensive too. In any case patient is I feel stable for discharge. We will make sure he follows up with ENT because this may just be benign positional vertigo. He did improve with meclizine, so we will discharge him on that. Otherwise, his lungs are clear. Neuro exam is nonfocal. We will continue treatment and follow. Continue his regular medications with the addition of the meclizine as needed. This was a [id number] encounter note with Arianna Penn. cc: Joshua Lanza MD
--- NOTE | 2019-08-05 21:46 | DISCHARGE SUMMARY ---
ADMISSION DATE: 07/31/2019 DISCHARGE DATE: 08/05/2019 PRIMARY CARE PHYSICIAN: Dr. Ronald Posadas. ADMISSION DIAGNOSES: 1. A suspected transient ischemic attack. 2. Lower extremity weakness and peripheral neuropathy. 3. Diabetes type 2. 4. Hypertension. 5. Systolic congestive heart failure, compensated. DISCHARGE DIAGNOSES: 1. A persistent dizziness with no clear etiology. 2. Diabetes. 3. Hypertension, improved with compensated heart failure. SUMMARY OF FINDINGS: This is a 64-year-old male who presented to the emergency room with a one- day history of having lower extremity weakness and falling. States his legs just gave away and he was not able to get up. He came to the emergency room and was evaluated for a suspicious possible TIA, so he was admitted. We were unable to obtain an MRI due to his ICD. We did consult Neurology who felt that the recent episodes did not appear to be a primary neurological problem. We did carotid Doppler studies that showed mild atherosclerotic changes in the bilateral carotid artery systems, but no hemodynamically-significant lesions. An echocardiogram showed an ejection fraction of 45 percent to 50 percent with mildly impaired left ventricular systolic function. He was not found to be orthostatic. We are doing a trial of meclizine. He was ambulating, so it was felt at that point he did not qualify for rehab, so it was felt that he could safely be discharged home. DISCHARGE MEDICATIONS: Included Norvasc 5 mg p.o. daily, aspirin 81 mg p.o. daily, atorvastatin 20 mg p.o. daily, clonidine 0.3 mg p.o. daily, [place] 7.5 at 10 mg p.o. t.i.d. p.r.n., Lantus 20 units subcutaneous at bedtime, lactulose 30 mL p.o. daily p.r.n. ,prescription for meclizine 25 mg p.o. t.i.d. p.r.n., omeprazole 40 mg p.o. daily, and Entresto one tablet p.o. b.i.d. FOLLOWUP: He has an appointment with his primary care physician on 08/19/2019 at 1:[address] Whyte on 08/07/2019 at 9:45 a.m. He will need to follow up and call and make an appointment with Neurology and he will go to rehabilitation access outpatient. All discharge instructions have been reviewed with the patient and he verbalized understanding. TIME SPENT: This is a 35-minute discharge. Dictated by JEANNETTE Perez for Joshua Lanza MD cc: JEANNETTE Perez MD Moses Awoniyi, MD
== END 2019-08-05 13:02 | disposition home or self-care (01) | DRG 149 ==
LOC: ED 16:07 → OBSVTOIN 07-31 00:19 → INTOOBSV 07-31 00:19 → SUATTDRO 07-31 00:19 → 3N 07-31 00:19
PROVIDERS: ATTEND Internal Medicine